=== PATIENT | male | born 1975 | race Caucasian/White ===

== ENCOUNTER 2016-11-18 18:31 | Emergency (ER) | payer BC, OTHER ==
[~2016-11-18] VITALS: Ht 165.1 cm; Wt 83.9 kg
[~2016-11-18 18:31] MED LIST: ALPR.25T; ASP325T; ASP81TEC PO; ASPI-999 PO; ATOR10TA66 PO; BPR100T; CEPH-507 PO; CLPD75T; CYAN10006 PO; ESCI20TA2; GABA100C; HYDR-1231 PO; HYDR-34 PO; HYDR-3816 PO; HYDR-756 PO; HYDR-757 PO; HYDR12.56 PO; HYDR1TAB PO; LISI10TA PO; MELA1TAB15 PO; METO-333 PO; METO50TA2 PO; MTP25TSR; NAPR-243 PO; NAPR500T PO; ORPH100T PO; PRAV40TA PO; PRM25T PO; PRX10T; SERT25TA PO; SERT50TA PO; SIMV40TA2; SULF-222 PO; WELLBUTRIN; [UNRECOGNIZED DRUG - REMARK] PO
[2016-11-18] MEDS ORDERED: cloNIDine 0.2 MG (CATAPRES) TAB PO ONE (19:00)
--- NOTE | 2016-11-18 19:02 | ED Upper Extremity ---
General Stated Complaint: LT PINKIE FINGER PAIN/SLAMMED IN DOOR Source: patient Exam Limitations: no limitations History of Present Illness Time seen by provider: 19:00 Initial Comments Patient shut the left pinky finger in his car door at 1 p.m. today. He now has swelling and a throbbing sensation to the fingertip as well as bruising. Onset: this afternoon Severity: moderate Pain/Injury Location: left 5th finger Allergies and Home Medications Allergies Coded Allergies: NKANo Known Allergies (Verified Allergy, Unknown, 09/22/05) No Known Drug Allergies (Unverified , 09/11/08) Home Medications Aspirin 81 Mg Tab.chew, 81 MG PO 1700, (Reported) Atorvastatin Calcium 10 Mg Tablet, 10 MG PO HS, #30 Prescribed by: JEAN VASQUEZ on 10/02/15 1639 Cyanocobalamin (Vitamin B-12) 1,000 Mcg Tablet, 1,000 MCG PO 1700, (Reported) Hydrochlorothiazide 12.5 Mg Tablet, 12.5 MG PO 1700, #30 LAST FILLED #30 06-20-15 Prescribed by: JEAN VASQUEZ on 10/02/15 1639 Hydrocodone/Acetaminophen 1 Each Tablet, 1 EACH PO Q6H PRN for PAIN, #10 Prescribed by: ROLF DOLAN on 02/06/16 1057 Melatonin/Pyridoxine 1 Each Tablet, 5 MG PO 0900, (Reported) Metoprolol Tartrate 50 Mg Tablet, 50 MG PO BID, #30 LAST FILLED #60 06-20-15 Prescribed by: JEAN VASQUEZ on 10/02/15 1639 Naproxen 500 Mg Tablet, 500 MG PO BID, #30 Prescribed by: ROLF DOLAN on 02/06/16 1057 Sertraline Hcl 50 Mg Tablet, 50 MG PO 1700, (Reported) LAST FILLED #30 06-20-15 Constitutional: see HPI EENTM: see HPI Respiratory: no symptoms reported Cardiovascular: no symptoms reported Genitourinary: no symptoms reported Musculoskeletal: see HPI Skin: no symptoms reported Psychiatric/Neurological: No Symptoms Reported Past Pxorduj-Jgwsuz-Ubcita Hx Patient Social History Recent Foreign Travel: No Contact w/Someone Who Travel: No Recent Hopitalizations: Yes (IRREGULAR HEART BEAT) Immunizations Up To Date Tetanus Booster (TDap): More than 5yrs PED Vaccines UTD: No Seasonal Allergies Seasonal Allergies: Yes Surgeries HX Surgeries: Yes Surgeries: Appendectomy, Coronary Stent Respiratory Hx Respiratory Disorders: No Cardiovascular Hx Cardiac Disorders: Yes (2 STENTS ) Cardiac Disorders: Heart Attack, Hypertension Neurological Hx Neurological Disorders: No Reproductive System Hx Reproductive Disorders: No Genitourinary Hx Genitourinary Disorders: Yes (HX OF KIDNEY STONES) Gastrointestinal Hx Gastrointestinal Disorders: No Musculoskeletal Hx Musculoskeletal Disorders: Yes Musculoskeletal Disorders: Chronic Back Pain Endocrine Hx Endocrine Disorders: No HEENT HX ENT Disorders: No Cancer Hx Cancer: No Psychosocial Hx Psychiatric Problems: Yes Behavioral Health Disorders: Anxiety, Depression Integumentary HX Skin/Integumentary Disorder: No Blood Transfusions Hx Blood Disorders: No Adverse Reaction to a Blood Tr: No Family Medical History Significant Family History: No Pertinent Family Hx Physical Exam Vital Signs Vital Sign - Last 12Hours 11/18/16 19:00 Temp 98.2 Pulse 86 Resp 20 B/P (MAP) 158/117 Pulse Ox 97 O2 Delivery Room Air Capillary Refill : General Appearance: WD/WN, no apparent distress HEENT: PERRL/EOMI, normal ENT inspection Neck: non-tender, full range of motion Respiratory: no respiratory distress, no accessory muscle use Gastrointestinal: non tender, soft Shoulder: normal inspection, non-tender Elbow/Forearm: normal inspection, non-tender, Left Wrist: Yes normal inspection, Yes non-tender Hand: Left, ecchymosis, limited ROM, nail injury (subungual hematoma), swelling Neurologic/Psychiatric: alert, normal mood/affect, oriented x 3 Skin: normal color, warm/dry Progress/Results/Core Measures Results/Orders My Orders Orders - ROLF DOLAN APRN Clonidine Tablet (Catapres Tablet) (11/18/16 19:00) Hand, Left, 3 Views (11/18/16 18:58) Medications Given in ED Current Medications Medications Dose Ordered Sig/Jessica Route Start Time Stop Time Status Last Admin Dose Admin Clonidine HCl 0.2 mg ONCE ONCE PO 11/18/16 19:00 11/18/16 19:01 DC 11/18/16 19:05 0.2 MG Vital Signs/I&O Vital Sign - Last 12Hours 11/18/16 19:00 Temp 98.2 Pulse 86 Resp 20 B/P (MAP) 158/117 Pulse Ox 97 O2 Delivery Room Air Departure Impression Impression: Primary Impression: Subungual hematoma of finger Additional Impressions: Hypertension Closed fracture of tuft of distal phalanx of finger Disposition: 01 HOME, SELF-CARE Condition: Stable Departure-Patient Inst. Decision time for Depature: 19:01 Referrals: DARSHAN ANTHONY DO (PCP/Family) Primary Care Physician Patient Instructions: NO INSTRUCTIONS GIVEN Add. Discharge Instructions: 1. Wear a Band-Aid over this for the next few days to collect the drainage/ oozing of blood that will occur from beneath the fingernail. You may shower 2. Scripts Hydrocodone/Acetaminophen ([place] 5-325 Tablet) 1 Each Tablet 1 EACH PO Q4H Y for PAIN-MODERATE TO SEVERE, #10 TAB Prov: ROLF DOLAN APRN 11/18/16 ROLF DOLAN APRN Nov 18, 2016 19:02
[2016-11-18] MEDS ORDERED: HYDR-757 PO (19:09)
[2016-11-18 19:22] VITALS: BP 145/97
--- NOTE | 2016-11-18 19:43 | Diagnostic Imaging Report ---
EXAMINATION: Left hand INDICATION: Injury Three views were obtained. There is a nondisplaced fracture involving the tuft of the distal phalanx of the fifth digit. There is also soft tissue edema in this area but there is no sign of a radiopaque foreign body. No other fracture or acute bony abnormality is noted. IMPRESSION: There is a nondisplaced fracture of the tuft of the distal phalanx of the fifth digit. There is no acute bony abnormality noted otherwise. Dictated by: Dictated on workstation # [id number]
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
--- OUTSIDE RECORDS SUMMARY | 2016-11-20 17:04 | XMS REPORT ---
Author Author FELIZ ANGELES Organization [employer] Address Unknown Phone Unavailable Care Team Providers Care Freight Claim Investigator Name Role Phone FELIZ ANGELES CP Unavailable Allergies, Adverse Reactions, Alerts Substance Reaction Event Type N.K.D.A. Info Not Available Non Drug Allergy Problems Problem Type Condition Code Onset Dates Condition Status Assessment Dental examination Z01.20 Active Medications Medication Code System Code Instructions Start Date End Date Status Dosage Metoprolol Succinate NDC 0 not defined [place] [facility] [address]-48 5-325 MG Orally every 6 hrs 1 tablet as needed Zoloft NDC 0 not defined Lovast[place] [facility] [address]-22 not defined Amoxicillin [facility] [address]-58 500 MG Orally every 8 hrs 1 tablet Procedures Procedure Coding System Code Date INTRAORL-PERIAPICAL 1 FILM 24331 CPT-4 D0220 December 04, 2015 LTD ORAL EVALUATION - PROBLEM FOCUS CPT-4 D0140 December 04, 2015 Vital Signs Date/Time: December 04, 2015 Blood Pressure Diastolic 11 mmHg Blood Pressure Systolic 151 mmHg Results No Known Results Summary Purpose [employer] Submission
== END 2016-11-18 19:22 | disposition home or self-care (01) ==
LOC: EDUNIT# 18:31 → ER 18:34
DX: S62.637A Displaced fracture of distal phalanx of left little finger, initial encounter for closed fracture (principal); I10 Essential (primary) hypertension; I25.2 Old myocardial infarction; F41.9 Anxiety disorder, unspecified; F32.9 Major depressive disorder, single episode, unspecified; Z79.82 Long term (current) use of aspirin; Z95.5 Presence of coronary angioplasty implant and graft; W23.1XXA Caught, crushed, jammed, or pinched between stationary objects, initial encounter
CPT/HCPCS: 29130; 73130

== ENCOUNTER 2018-02-18 08:30 | Inpatient (IN) | payer OTHER ==
[~2018-02-18] VITALS: Ht 165.1 cm; Wt 83.9 kg
[~2018-02-18 08:30] MED LIST changes: -HYDR-3816 PO; +HYDR-4226 PO; +HYDR-4227 PO; -HYDR-756 PO; -HYDR-757 PO; +METO50TA15 PO; -METO50TA2 PO; +NAPR-1071 PO; -NAPR500T PO
[2018-02-18 09:07] LABS: BASOPHILS % (AUTO) 0 % (0-10); EOSINOPHILS # (AUTO) 0.1 10^3/uL (0.0-0.3); EOSINOPHILS % (AUTO) 0 % (0-10); HEMATOCRIT 41 % (40-54); HEMOGLOBIN 14.7 G/DL (13.3-17.7); LYMPHOCYTES # (AUTO) 2.3 X 10^3 (1.0-4.0); LYMPHOCYTES % (AUTO) 13 % (12-44); MEAN CORPUSCULAR HEMOGLOBIN 31 PG (25-34); MEAN CORPUSCULAR HGB CONC 36 G/DL (32-36); MEAN CORPUSCULAR VOLUME 84 FL (80-99); MEAN PLATELET VOLUME 9.1 FL (7.4-10.4); MONOCYTES # (AUTO) 1.3 X 10^3 (0.0-1.0); MONOCYTES % (AUTO) 7 % (0-12); NEUTROPHILS # (AUTO) 14.5 X 10^3 (1.8-7.8); NEUTROPHILS % (AUTO) 80 % (42-75); PLATELET COUNT 249 10^3/uL (130-400); RED BLOOD COUNT 4.82 10^6/uL (4.35-5.85); RED CELL DISTRIBUTION WIDTH 12.6 % (10.0-14.5); WHITE BLOOD COUNT 18.2 10^3/uL (4.3-11.0)
[2018-02-18 09:22] LABS: ALANINE AMINOTRANSFERASE 47 U/L (0-55); ALBUMIN 4.7 GM/DL (3.2-4.5); ALKALINE PHOSPHATASE 57 U/L (40-136); BILIRUBIN,TOTAL 0.5 MG/DL (0.1-1.0); BUN/CREATININE RATIO 18; CALCIUM 9.8 MG/DL (8.5-10.1); CARBON DIOXIDE 23 MMOL/L (21-32); CHLORIDE 101 MMOL/L (98-107); CREATININE SERUM 0.88 MG/DL (0.60-1.30); GFR ESTIMATED > 60; GLUCOSE 104 MG/DL (70-105); POTASSIUM 3.3 MMOL/L (3.6-5.0); SODIUM 135 MMOL/L (135-145); TOTAL PROTEIN 7.6 GM/DL (6.4-8.2)
--- NOTE | 2018-02-18 09:28 | Diagnostic Imaging Report ---
CHEST 1 VIEW, AP/PA ONLY Indication: Chest and abdominal pain. Comparison: 10/01/2015 Findings: No focal airspace disease in the visualized lungs. Please note that the posterior lower lobes are poorly evaluated by portable radiography. No pleural effusion or pneumothorax. Normal cardiomediastinal silhouette. No free intraperitoneal air. Impression: 1. No acute cardiopulmonary process by portable radiography. 2. No evidence of pneumoperitoneum. Dictated by: Dictated on workstation # [id number]
[2018-02-18 09:44] LABS: BAND NEUTROPHILS 4 %; LYMPHOCYTES % (MANUAL) 12 %; MONOCYTES % (MANUAL) 5 %; NEUTROPHILS % (MANUAL) 77 %
[2018-02-18 09:45] LABS: BASOPHILS % (MANUAL) 1 %; EOSINOPHILS % (MANUAL) 1 %; RBC MORPH NORMAL
--- NOTE | 2018-02-18 09:53 | ED Abdominal Pain ---
General Chief Complaint: Abdominal/GI Problems Stated Complaint: ABD PAIN Nursing Triage Note: PT BEGAN EXPERINCING SHARP ADBOMINAL PAIN LAST NIGHT WITH NAUSEA AND VOMITING. Sepsis Screen: No Definite Risk Source of Information: Patient (KELLE GARCIAS MD) History of Present Illness Date Seen by Provider: Feb 18, 2018 Time Seen by Provider: 09:50 Initial Comments The patient is a 43-year-old white male who presents to the emergency room with a chief complaint of central abdominal pain. He reports that this began last evening. He had eaten chicken planks and setswana fries prior to that. He still has his gallbladder but has not had any previous pain of this sort. He also reported some left upper abdomen lower chest pain. He has a past history of coronary artery disease with stenting in 2007 or . Recent repeat angiograms have not shown any progression of disease. He has had a previous appendectomy. The pain is central without radiation. He has had a bowel movement since the onset of pain. He has vomited once. Timing/Duration: 12-24 Hours (KELLE GARCIAS MD) Allergies and Home Medications Allergies Coded Allergies: NKANo Known Allergies (Verified Allergy, Unknown, 09/22/05) No Known Drug Allergies (Unverified , 09/11/08) Home Medications No Active Prescriptions or Reported Meds Patient Home Medication List Home Medication List Reviewed: Yes (LATESHA SCHMITT) Review of Systems Review of Systems Constitutional: see HPI EENTM: No Symptoms Reported Respiratory: No Symptoms Reported Cardiovascular: No Symptoms Reported Gastrointestinal: See HPI Genitourinary: No Symptoms Reported Musculoskeletal: no symptoms reported Skin: no symptoms reported Psychiatric/Neurological: No Symptoms Reported Endocrine: No Symptoms Reported Hematologic/Lymphatic: No Symptoms Reported (KELLE GARCIAS MD) Past Eyrbnpr-Gmfetq-Itszad Hx Patient Social History Alcohol Use: Occasionally Uses Recreational Drug Use: Yes Drug of Choice: MARIJUANA Smoking Status: Current Everyday Smoker Type Used: Cigarettes 2nd Hand Smoke Exposure: Yes Recent Foreign Travel: No Contact w/Someone Who Travel: No Recent Infectious Disease Expo: No Recent Hopitalizations: No (KELLE GARCIAS MD) 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 (LATESHA SCHMITT) Immunizations Up To Date Tetanus Booster (TDap): More than 5yrs PED Vaccines UTD: No (KELLE GARCIAS MD) Seasonal Allergies Seasonal Allergies: Yes (KELLE GARCIAS MD) Past Medical History Surgeries: Yes Appendectomy, Coronary Stent Respiratory: No Cardiac: Yes (2 STENTS ) Heart Attack, High Cholesterol, Hypertension Neurological: No Reproductive Disorders: No Genitourinary: No Gastrointestinal: No Musculoskeletal: Yes Chronic Back Pain Endocrine: No HEENT: No Cancer: No Psychosocial: Yes Anxiety, Depression Integumentary: No Blood Disorders: No Adverse Reaction/Blood Tranf: No (KELLE GARCIAS MD) Family Medical History No Pertinent Family Hx (KELLE GARCIAS MD) Physical Exam Vital Signs Vital Signs - First Documented 02/18/18 08:37 Temp 97.6 Pulse 69 Resp 18 B/P (MAP) 200/124 (149) Pulse Ox 96 O2 Delivery Room Air (LATESHA SCHMITT) Vital Signs Capillary Refill : Less Than 3 Seconds (KELLE GARCIAS MD) Height/Weight/BMI Height: 5'5.00" Weight: 185lbs. 0.0oz. 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, no motor/sensory deficits, alert, normal mood/affect, oriented x 3 Skin: normal color, warm/dry Lymphatic: no adenopathy (KELLE GARCIAS MD) Progress/Results/Core Measures Results/Orders Lab Results Laboratory Tests Test 02/18/18 08:40 02/18/18 12:55 Range/Units White Blood Count 18.2 H 4.3-11.0 10^3/uL Red Blood Count 4.82 4.35-5.85 10^6/uL Hemoglobin 14.7 13.3-17.7 G/DL Hematocrit 41 40-54 % Mean Corpuscular Volume 84 80-99 FL Mean Corpuscular Hemoglobin 31 25-34 PG Mean Corpuscular Hemoglobin Concent 36 32-36 G/DL Red Cell Distribution Width 12.6 10.0-14.5 % Platelet Count 249 130-400 10^3/uL Mean Platelet Volume 9.1 7.4-10.4 FL Neutrophils (%) (Auto) 80 H 42-75 % Lymphocytes (%) (Auto) 13 12-44 % Monocytes (%) (Auto) 7 0-12 % Eosinophils (%) (Auto) 0 0-10 % Basophils (%) (Auto) 0 0-10 % Neutrophils # (Auto) 14.5 H 1.8-7.8 X 10^3 Lymphocytes # (Auto) 2.3 1.0-4.0 X 10^3 Monocytes # (Auto) 1.3 H 0.0-1.0 X 10^3 Eosinophils # (Auto) 0.1 0.0-0.3 10^3/uL Basophils # (Auto) 0.0 0.0-0.1 10^3/uL Neutrophils % (Manual) 77 % Lymphocytes % (Manual) 12 % Monocytes % (Manual) 5 % Eosinophils % (Manual) 1 % Basophils % (Manual) 1 % Band Neutrophils 4 % Blood Morphology Comment NORMAL Sodium Level 135 135-145 MMOL/L Potassium Level 3.3 L 3.6-5.0 MMOL/L Chloride Level 101 98-107 MMOL/L Carbon Dioxide Level 23 21-32 MMOL/L Anion Gap 11 5-14 MMOL/L Blood Urea Nitrogen 16 7-18 MG/DL Creatinine 0.88 0.60-1.30 MG/DL Estimat Glomerular Filtration Rate > 60 BUN/Creatinine Ratio 18 Glucose Level 104 70-105 MG/DL Calcium Level 9.8 8.5-10.1 MG/DL Corrected Calcium 8.5-10.1 MG/DL Total Bilirubin 0.5 0.1-1.0 MG/DL Aspartate Amino Transf (AST/SGOT) 19 5-34 U/L Alanine Aminotransferase (ALT/SGPT) 47 0-55 U/L Alkaline Phosphatase 57 40-136 U/L Troponin I < 0.30 <0.30 NG/ML Total Protein 7.6 6.4-8.2 GM/DL Albumin 4.7 H 3.2-4.5 GM/DL Triglycerides Level 162 H <150 MG/DL Lipase 159 H 8-78 U/L Serum Alcohol < 10 <10 MG/DL Urine Color YELLOW Urine Clarity SLIGHTLY CLOUDY Urine pH 6.5 5-9 Urine Specific Burke 1.010 L 1.016-1.022 Urine Protein NEGATIVE NEGATIVE Urine Glucose (UA) NEGATIVE NEGATIVE Urine Ketones NEGATIVE NEGATIVE Urine Nitrite NEGATIVE NEGATIVE Urine Bilirubin NEGATIVE NEGATIVE Urine Urobilinogen NORMAL NORMAL MG/DL Urine Leukocyte Esterase NEGATIVE NEGATIVE Urine RBC (Auto) NEGATIVE NEGATIVE Urine RBC RARE /HPF Urine WBC NONE /HPF Urine Squamous Epithelial Cells RARE /HPF Urine Crystals NONE /LPF Urine Bacteria NEGATIVE /HPF Urine Casts NONE /LPF Urine Mucus NEGATIVE /LPF Urine Culture Indicated NO Urine Opiates Screen POSITIVE H NEGATIVE Urine Oxycodone Screen NEGATIVE NEGATIVE Urine Methadone Screen NEGATIVE NEGATIVE Urine Propoxyphene Screen NEGATIVE NEGATIVE Urine Barbiturates Screen NEGATIVE NEGATIVE Ur Tricyclic Antidepressants Screen NEGATIVE NEGATIVE Urine Phencyclidine Screen NEGATIVE NEGATIVE Urine Amphetamines Screen NEGATIVE NEGATIVE Urine Methamphetamines Screen NEGATIVE NEGATIVE Urine Benzodiazepines Screen NEGATIVE NEGATIVE Urine Cocaine Screen NEGATIVE NEGATIVE Urine Cannabinoids Screen POSITIVE H NEGATIVE (LATESHA SCHMITT) My Orders Orders - LATESHA SCHMITT Triglycerides (02/18/18 12:48) Hemoglobin A1c (02/18/18 12:48) Drug Screen Stat (Urine) (02/18/18 12:48) Ua Culture If Indicated (02/18/18 12:48) Fentanyl Injection (Sublimaze Injection (02/18/18 13:00) Labetalol Injection (Normodyne Injection (02/18/18 13:00) Alcohol (02/18/18 13:10) (LATESHA SCHMITT) Medications Given in ED Current Medications Medications Dose Ordered Sig/Jessica Route Start Time Stop Time Status Last Admin Dose Admin Fentanyl Citrate 50 mcg ONCE ONCE IVP 02/18/18 13:00 02/18/18 13:01 DC 02/18/18 13:00 50 MCG Iohexol 100 ml ONCE ONCE IV 02/18/18 11:30 02/18/18 11:31 DC 02/18/18 11:21 100 ML Labetalol HCl 20 mg ONCE ONCE IV 02/18/18 13:00 02/18/18 13:01 DC 02/18/18 13:00 20 MG Sodium Chloride 250 ml ONCE ONCE IV 02/18/18 11:30 02/18/18 11:31 DC 02/18/18 11:21 80 ML (LATESHA SCHMITT) Vital Signs/I&O 02/18/18 08:37 Temp 97.6 Pulse 69 Resp 18 B/P (MAP) 200/124 (149) Pulse Ox 96 O2 Delivery Room Air (LATESHA SCHMITT) Blood Pressure Mean: 149 Progress Progress Note : Time: 12:33 Progress Note I have met with listen to him and examine the patient and agree with the history and physical exam documented by Dr. Garcias. Patient has elevated lipase and white count as well as some inflammatory markings without obvious abscess around the ascending colon. Diverticulitis is possible. He's had his appendix out and the pancreas is unremarkable radiographically. There is no evidence of gallbladder disease on ultrasound. The patient denies recent drinking says about 3 days ago a similar beer. Symptoms started right after eating chicken strips and mashed potatoes with gravy. No history of pancreatitis. No imaging evidence of gallstones or obstruction of the biliary tree. Distant history of smoking meth but denies any IV use. Patient had a bowel movement this morning and has not had any problems lately of diarrhea constipation. Did not receive any increased pain or relief from having a bowel movement. So was normal formed. This makes the inflammation seen and a reactive lymphadenitis around the ascending colon less likely related to the bowel. Could be reactive inflammation of the pancreas secondary to whatever process is going on with the ascending colon as the radiographic imaging puts the inflammation geographically apart from the pancreas (which is fairly benign in appearance). Either way he is having nausea abdominal pain and could probably merit some observation in the hospital. As well as fluids, IV nausea and pain meds. [place] triglycerides, urinalysis, urine drug screen, add some fentanyl and talk about inpatient stay. (LATESHA SCHMITT) Initial ECG Impression Date: Feb 18, 2018 Initial ECG Impression Time: 08:58 Initial ECG Rate: 63 Initial ECG Rhythm: Normal Sinus Initial ECG Intervals: Normal Initial ECG Impression: Normal Comment No ST elevation or depression. (LATESHA SCHMITT) Diagnostic Imaging Diagonstic Imaging: Xray Plain Films/CT/US/NM/MRI: chest Comments NAME: RAN COLLIER [facility] REC#: [id number] PHYSICIAN: KELLE GARCIAS MD CC: DAKOTA SAMSON MD; KELLE GARCIAS MD Page 1 of 1 RADIOLOGY REPORT VIA [place], [place] CC: DAKOTA SAMSON MD; KELLE GARCIAS MD Page 1 of 1 RADIOLOGY REPORT NAME: RAN CO[facility]IER [facility] REC#: [id number] PT STATUS: REG ER : 1975 PHYSICIAN: KELLE GARCIAS MD ADMIT DATE: 02/18/18/ER Signed Date of Exam: 02/18/18 CHEST 1 VIEW, AP/PA ONLY CHEST 1 VIEW, AP/PA ONLY Indication: Chest and abdominal pain. Comparison: 10/01/2015 Findings: No focal airspace disease in the visualized lungs. Please note that the posterior lower lobes are poorly evaluated by portable radiography. No pleural effusion or pneumothorax. Normal cardiomediastinal silhouette. No free intraperitoneal air. Impression: 1. No acute cardiopulmonary process by portable radiography. 2. No evidence of pneumoperitoneum. Dictated by: Dictated on workstation # [id number] Dict: 02/18/18923 Trans: 02/18/18924 Interpreted by: DAKOTA SAMSON MD Electronically signed by: DAKOTA SAMSON MD 02/18/18924 Reviewed: Reviewed by Fl Diagonstic Imaging: CT (with contrast) Plain Films/CT/US/NM/MRI: abdomen, pelvis Comments NAME: RAN CO[facility] REC#: [id number] PHYSICIAN: KELLE GARCIAS MD CC: MARCIO HANNA MD; KELLE GARCIAS MD Page 2 of 2 RADIOLOGY REPORT VIA [facility] [place], [place] CC: MARCIO HANNA MD; KELLE GARCIAS MD Page 1 of 2 RADIOLOGY REPORT NAME: RAN CO[facility] REC#: [id number] PT STATUS: REG ER : 1975 PHYSICIAN: KELLE GARCIAS MD ADMIT DATE: 02/18/18/ER Signed Date of Exam: 02/18/18 CT ABDOMEN/PELVIS W PROCEDURE: CT abdomen and pelvis with contrast. TECHNIQUE: Multiple contiguous axial images were obtained through the abdomen and pelvis after administration of intravenous contrast. INDICATION: Abdominal pain with nausea and emesis COMPARISON is made to the study of 01/28/2015 Low-density is seen throughout the liver indicating steatosis. No focal hepatic or splenic lesion is identified. Gallbladder, pancreas and adrenal glands are stable and unremarkable. There is no evidence of hydronephrosis. There are nonobstructing stones within the upper and lower poles of the left kidney measuring up to 0.5 cm in size. There is mild to moderate edema and/or inflammation surrounding the ascending colon. This does appear to be along the mesenteric border just distal to the ileocecal valve. No organized fluid collection is seen to indicate an abscess. There is no evidence of pathologically enlarged adenopathy. IMPRESSION: Inflammation in the right lower quadrant along the mesenteric border of the ascending colon. This may represent focal colitis such as diverticulitis. Other causes of mesenteritis is not excluded. No drainable abscess is appreciated. There is no evidence of pneumoperitoneum or other acute abnormality within the abdomen or pelvis. Dictated by: Dictated on workstation # [id number] Dict: 02/18/18 1148 Trans: 02/18/18 1206 Interpreted by: MARCIO HANNA MD Electronically signed by: MARCIO HANNA MD 02/18/18 1206 Reviewed: Reviewed by Fl Diagonstic Imaging: Ultrasound Plain Films/CT/US/NM/MRI: abdomen (RUQ GB) Comments NAME: RAN COLLIER [facility] REC#: [id number] PT STATUS: REG ER : 1975 PHYSICIAN: KELLE GARCIAS MD ADMIT DATE: 02/18/18/ER Draft Date of Exam:02/18/18 US GALLBLADDER [id number] PROCEDURE: US Gallbladder. TECHNIQUE: Multiple real-time grayscale images were obtained over the right upper quadrant in various projections. INDICATION: Right-sided abdominal pain. COMPARISON: CT abdomen and pelvis performed earlier same day. FINDINGS: The liver shows diffuse increased echogenicity, indicative of diffuse hepatic steatosis. No focal hepatic lesion. Main portal vein is patent with antegrade flow. The gallbladder is distended without gallstones, wall thickening, or pericholecystic fluid. The common bile duct is obscured by overlying bowel gas. The pancreas is obscured by overlying bowel gas. The right kidney is normal in size. No hydronephrosis, shadowing calculi, or suspicious mass lesion. No right upper quadrant ascites. IMPRESSION: 1. Normal gallbladder. 2. Diffuse hepatic steatosis. Dictated on workstation # [id number] Dict: 02/18/18 1249 Trans: 02/18/18 [id number] [id number] Interpreted by: DAKOTA SAMSON MD Electronically signed by: Negative gallbladder ultrasound. Reviewed: Reviewed by Me (LATESHA SCHMITT) Departure Communication (Admissions) Time/Spoke to Admitting Phy: 13:04 Discussed case lab imaging findings with Dr. Anthony and he agrees to accept the patient but would like morning lipids, CBC, CMP, lipase and amylase. Consult general surgery. Time/Spoke to Consulting Phy: 13:09 Message left with surgery staff for Dr. Lerma to call us back. Dr. Lerma personally met the patient in the ER and agrees to consult. (LATESHA SCHMITT) Impression Primary Impression: Acute pancreatitis Qualified Codes: K85.90 - Acute pancreatitis without necrosis or infection, unspecified Disposition: ADMITTED INPATIENT Condition: Stable Admissions Decision to Admit Reason: Admit from ER (General) Decision to Admit/Date: Feb 18, 2018 Time/Decision to Admit Time: 13:09 (LATESHA SCHMITT) Departure-Patient Inst. Referrals: DARSHAN ANTHONY DO (PCP/Family) Primary Care Physician Scripts No Active Prescriptions or Reported Meds Copy Copies To 1: DARSHAN ANTHONY RODNEY K MD Feb 18, 2018 09:53 LATESHA SCHMITT Feb 18, 2018 12:38
[2018-02-18] MEDS ORDERED: IOHEXOL 350 MG/ML 100 ML (OMNIPAQUE 350) VIAL IV ONE (11:30)
[2018-02-18] MEDS ORDERED: NS 250 ML (IVPB) BAG IV ONE (11:30)
--- NOTE | 2018-02-18 12:02 | Diagnostic Imaging Report ---
PROCEDURE: CT abdomen and pelvis with contrast. TECHNIQUE: Multiple contiguous axial images were obtained through the abdomen and pelvis after administration of intravenous contrast. INDICATION: Abdominal pain with nausea and emesis COMPARISON is made to the study of 01/28/2015 Low-density is seen throughout the liver indicating steatosis. No focal hepatic or splenic lesion is identified. Gallbladder, pancreas and adrenal glands are stable and unremarkable. There is no evidence of hydronephrosis. There are nonobstructing stones within the upper and lower poles of the left kidney measuring up to 0.5 cm in size. There is mild to moderate edema and/or inflammation surrounding the ascending colon. This does appear to be along the mesenteric border just distal to the ileocecal valve. No organized fluid collection is seen to indicate an abscess. There is no evidence of pathologically enlarged adenopathy. IMPRESSION: Inflammation in the right lower quadrant along the mesenteric border of the ascending colon. This may represent focal colitis such as diverticulitis. Other causes of mesenteritis is not excluded. No drainable abscess is appreciated. There is no evidence of pneumoperitoneum or other acute abnormality within the abdomen or pelvis. Dictated by: Dictated on workstation # [id number]
--- NOTE | 2018-02-18 12:55 | Diagnostic Imaging Report ---
PROCEDURE: US Gallbladder. TECHNIQUE: Multiple real-time grayscale images were obtained over the right upper quadrant in various projections. INDICATION: Right-sided abdominal pain. COMPARISON: CT abdomen and pelvis performed earlier same day. FINDINGS: The liver shows diffuse increased echogenicity, indicative of diffuse hepatic steatosis. No focal hepatic lesion. Main portal vein is patent with antegrade flow. The gallbladder is distended without gallstones, wall thickening, or pericholecystic fluid. The common bile duct is obscured by overlying bowel gas. The pancreas is obscured by overlying bowel gas. The right kidney is normal in size. No hydronephrosis, shadowing calculi, or suspicious mass lesion. No right upper quadrant ascites. IMPRESSION: 1. Normal gallbladder. 2. Diffuse hepatic steatosis. Dictated by: Dictated on workstation # [id number]
[2018-02-18] MEDS ORDERED: LABETALOL HCL 20 MG/4 ML VIAL IV ONE (13:00)
[2018-02-18] MEDS ORDERED: fentaNYL INJECTION 100 MCG/2 ML AMP IVP ONE (13:00)
[2018-02-18 13:36] LABS: BILIRUBIN,URINE NEGATIVE (NEGATIVE); CLARITY,URINE SLIGHTLY CLOUDY; COLOR,URINE YELLOW; GLUCOSE, URINE (UA) NEGATIVE (NEGATIVE); KETONES,URINE NEGATIVE (NEGATIVE); LEUKOCYTE ESTERASE ,URINE NEGATIVE (NEGATIVE); NITRITE,URINE NEGATIVE (NEGATIVE); PH,URINE 6.5 (5-9); PROTEIN,URINE NEGATIVE (NEGATIVE); UROBILINOGEN,URINE NORMAL (NORMAL)
[2018-02-18 13:48] LABS: AMPHETAMINE SCREEN, URINE NEGATIVE (NEGATIVE); BARBITURATE SCREEN URINE NEGATIVE (NEGATIVE); BENZODIAZEPINES SCREEN URINE NEGATIVE (NEGATIVE); CANNABINOID SCREEN, URINE POSITIVE (NEGATIVE); COCAINE SCREEN URINE NEGATIVE (NEGATIVE); METHADONE STAT NEGATIVE (NEGATIVE); METHAMPHETAMINE SCREEN URINE S NEGATIVE (NEGATIVE); OPIATE SCREEN URINE POSITIVE (NEGATIVE); OXYCODONE STAT NEGATIVE (NEGATIVE); PROPOXYPHENE STAT NEGATIVE (NEGATIVE); TRICYCLIC ANTIDEPRESSANTS SCRE NEGATIVE (NEGATIVE)
[2018-02-18 13:52] LABS: BACTERIA,URINE NEGATIVE /HPF; RBC,URINE RARE /HPF; SQUAMOUS EPITHELIAL CELL,UR RARE /HPF
[2018-02-18 14:42] VITALS: BP 132/92
[2018-02-18] MEDS ORDERED: ONDANSETRON 4 MG/2 ML (SDV) Z0FRAN IV PRN (14:45)
[2018-02-18] MEDS: KETOROLAC 15 MG/ML VIAL IV PRN (14:49)
[2018-02-18] MEDS: NS W/KCL 40 MEQ/L 1,000 ML IV SCH ×2 (14:50→19:30)
[2018-02-18] MEDS ORDERED: FLU QUADRIvalent (5+ YOA) 2018-2019 (AFLURIA) 0.5 ML IM ONE (15:45)
[2018-02-18 16:35] VITALS: BP 140/90
[2018-02-18] MEDS ORDERED: PIPERACILLIN/TAZO 4.5 GM/NS 100 ML IV NR ×2 (17:00)
--- NOTE | 2018-02-18 17:02 | Consultation ---
History of Present Illness History of Present Illness Patient Consulted On(saurabh/time) 02/18/18 17:02 Date Seen by Provider: Feb 18, 2018 Time Seen by Provider: 17:02 History of Present Illness Consult requested by Dr. Figueroa for abdominal pain. 43 year old male with abdominal pain that was across the top of the abdomen more on the right side. Sharp pains moves to side. Severe pain. + nausea and emesis. Pain began last night and continued to increase in intensity. Nothing really makes better and nothing seems to make worse. Never had episode like this before. Denies fever sweats chills shortness of breath or chest pain at this time. Allergies and Home Medications Allergies Coded Allergies: NKANo Known Allergies (Verified Allergy, Unknown, 09/22/05) No Known Drug Allergies (Unverified , 09/11/08) Home Medications No Active Prescriptions or Reported Meds Patient Home Medication List Home Medication List Reviewed: Yes Past Rcegrod-Mmhhmj-Zhlrao Hx Patient Social History Alcohol Use: Occasionally Uses Number of Drinks Today: AA Recreational Drug Use: Yes (occasional marijuanna) 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 Smoking Status: Current Everyday Smoker Type Used: Cigarettes 2nd Hand Smoke Exposure: Yes Recent Foreign Travel: No Contact w/Someone Who Travel: No Recent Infectious Disease Expo: No Recent Hopitalizations: No Physical Abuse Screen: No Sexual Abuse: No Immunizations Up To Date Tetanus Booster (TDap): More than 5yrs PED Vaccines UTD: No Seasonal Allergies Seasonal Allergies: Yes Surgeries History of Surgeries: Yes Surgeries: Appendectomy, Coronary Stent Respiratory History of Respiratory Disorde: No Cardiovascular History of Cardiac Disorders: Yes (2 STENTS ) Cardiac Disorders: Heart Attack, High Cholesterol, Hypertension Neurological History of Neurological Disord: No Reproductive System Hx Reproductive Disorders: No Genitourinary History of Genitourinary Disor: No Gastrointestinal History of Gastrointestinal Di: No Musculoskeletal History of Musculoskeletal Dis: Yes Musculoskeletal Disorders: Chronic Back Pain Endocrine History of Endocrine Disorders: No HEENT History of HEENT Disorders: No Cancer History of Cancer: No Psychosocial History of Psychiatric Problem: Yes Behavioral Health Disorders: Anxiety, Depression Integumentary History of Skin or Integumenta: No Blood Transfusions History of Blood Disorders: No Adverse Reaction to a Blood Tr: No Family Medical History Significant Family History: No Pertinent Family Hx Family Medial History: Cardiovascular disease Hypertension Psychosocial problem Review of Systems-General Constitutional: no symptoms reported EENTM: no symptoms reported Respiratory: no symptoms reported Cardiovascular: no symptoms reported Gastrointestinal: see HPI Genitourinary: no symptoms reported Musculoskeletal: no symptoms reported Skin: no symptoms reported Psychiatric/Neurological: No Symptoms Reported Physical Exam-General Problems Physical Exam Vital Signs Vital Signs - First Documented 02/18/18 08:37 Temp 97.6 Pulse 69 Resp 18 B/P (MAP) 200/124 (149) Pulse Ox 96 O2 Delivery Room Air Capillary Refill : Less Than 3 Seconds General Appearance: no apparent distress HEENT: PERRL/EOMI, normal ENT inspection Neck: non-tender, full range of motion, supple Respiratory: no respiratory distress, no accessory muscle use Cardiovascular: regular rate, rhythm Gastrointestinal: soft, tenderness (right upper quadrant) Rectal: deferred Back: normal inspection, no CVA tenderness Extremities: normal range of motion, non-tender 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, no motor/sensory deficits, alert, normal mood/affect, oriented x 3 Skin: normal color, warm/dry Lymphatic: no adenopathy Data Review Labs Laboratory Tests 02/18/18 08:40: White Blood Count 18.2H, Red Blood Count 4.82, Hemoglobin 14.7, Hematocrit 41, Mean Corpuscular Volume 84, Mean Corpuscular Hemoglobin 31, Mean Corpuscular Hemoglobin Concent 36, Red Cell Distribution Width 12.6, Platelet Count 249, Mean Platelet Volume 9.1, Neutrophils (%) (Auto) 80H, Lymphocytes (%) (Auto) 13 , Monocytes (%) (Auto) 7, Eosinophils (%) (Auto) 0, Basophils (%) (Auto) 0, Neutrophils # (Auto) 14.5H, Lymphocytes # (Auto) 2.3, Monocytes # (Auto) 1.3H, Eosinophils # (Auto) 0.1, Basophils # (Auto) 0.0, Neutrophils % (Manual) 77, Lymphocytes % (Manual) 12, Monocytes % (Manual) 5, Eosinophils % (Manual) 1, Basophils % (Manual) 1, Band Neutrophils 4, Blood Morphology Comment NORMAL, Sodium Level 135, Potassium Level 3.3L, Chloride Level 101, Carbon Dioxide Level 23, Anion Gap 11, Blood Urea Nitrogen 16, Creatinine 0.88, Estimat Glomerular Filtration Rate > 60, BUN/Creatinine Ratio 18, Glucose Level 104, Calcium Level 9.8, Corrected Calcium , Total Bilirubin 0.5, Aspartate Amino Transf (AST/SGOT) 19, Alanine Aminotransferase (ALT/SGPT) 47, Alkaline Phosphatase 57, Troponin I < 0.30, Total Protein 7.6, Albumin 4.7H, Triglycerides Level 162H, Lipase 159H, Serum Alcohol < 10 02/18/18 12:55: Urine Color YELLOW, Urine Clarity SLIGHTLY CLOUDY, Urine pH 6.5, Urine Specific [place] 1.010L, Urine Protein NEGATIVE, Urine Glucose (UA) NEGATIVE, Urine Ketones NEGATIVE, Urine Nitrite NEGATIVE, Urine Bilirubin NEGATIVE, Urine Urobilinogen NORMAL, Urine Leukocyte Esterase NEGATIVE, Urine RBC (Auto) NEGATIVE, Urine RBC RARE, Urine WBC NONE, Urine Squamous Epithelial Cells RARE, Urine Crystals NONE, Urine Bacteria NEGATIVE, Urine Casts NONE, Urine Mucus NEGATIVE, Urine Culture Indicated NO, Urine Opiates Screen POSITIVEH, Urine Oxycodone Screen NEGATIVE, Urine Methadone Screen NEGATIVE, Urine Propoxyphene Screen NEGATIVE, Urine Barbiturates Screen NEGATIVE, Ur Tricyclic Antidepressants Screen NEGATIVE, Urine Phencyclidine Screen NEGATIVE, Urine Amphetamines Screen NEGATIVE, Urine Methamphetamines Screen NEGATIVE, Urine Benzodiazepines Screen NEGATIVE, Urine Cocaine Screen NEGATIVE, Urine Cannabinoids Screen POSITIVEH Assessment/Plan Assessment/Plan Assessment/Plan ruq abdominal pain colitis affecting ascending colon elevated lipase Started zosyn Iv fluids follow lab keep on clear and then advance when abdominal pain resolved no surgical intervention at this time Clinical Quality Measures DVT/VTE Risk/Contraindication: Risk Factor Score Per Nursin RFS Level Per Nursing on Admit: 1=Low/No VTE PPX KELIN HARRIS DO Feb 18, 2018 17:02
--- NOTE | 2018-02-18 18:52 | History & Physicial ---
History of Present Illness History of Present Illness Reason for visit/HPI Patient complains, stomach hurting all night. Patient had pain across abdomen above the umbilicus on both sides. Patient this evening complaints of pain in the lower right quadrant. Patient came out to the emergency room. Blood pressure over 200. Pain across abdomen. Patient had 6 beers the other day. Patient states he drinks occasionally. Patient admits to marijuana occasionally. Patient has a history of high blood pressure was metipranolol 50 mg twice a day. Patient stopped this a year ago. CAT scan showed diverticulitis in the lower right quadrant where he has his pain. White blood cell count 18,000. Patient had stents put in around the heart when he was 33 years old. Family history denies asthma TB diabetes heart disease lung disease cancer. Patient admits to smoking an occasional marijuana Date of Admission Feb 18, 2018 at 13:27 Time Seen by a Provider: 18:48 I consulted on this patient on 02/18/18 18:47 Attending Physician Ramiro Figueroa DO Admitting Physician Ramiro Figueroa DO Consult Allergies and Home Medications Allergies Coded Allergies: NKANo Known Allergies (Verified Allergy, Unknown, 09/22/05) No Known Drug Allergies (Unverified , 09/11/08) Home Medications No Active Prescriptions or Reported Meds Patient Home Medication List Home Medication List Reviewed: Yes Past Ckkhxnz-Cgnxln-Iwoinr Hx Patient Social History Employed/Student: employed Alcohol Use: Occasionally Uses Number of Drinks Today: AA Alcohol Beverage of Choice: Beer, Cheap Liquor Recreational Drug Use: Yes 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 Smoking Status: Current Everyday Smoker Type Used: Cigarettes 2nd Hand Smoke Exposure: Yes Physical Abuse Screen: No Sexual Abuse: No Recent Foreign Travel: No Contact w/other who traveled: No Recent Hopitalizations: No Recent Infectious Disease Expo: No Immunizations Up To Date Tetanus Booster (TDap): More than 5yrs Pediatric: No Seasonal Allergies Seasonal Allergies: Yes Surgeries Yes Appendectomy, Coronary Stent Respiratory No Cardiovascular Yes (2 STENTS ) Heart Attack, High Cholesterol, Hypertension Neurological No Reproductive System Hx Reproductive Disorders: No Genitourinary No Gastrointestinal No Musculoskeletal Yes Chronic Back Pain Endocrine History of Endocrine Disorders: No HEENT History of HEENT Disorders: No Cancer No Psychosocial History of Psychiatric Problem: Yes Behavioral Health Disorders: Anxiety, Depression Integumentary History of Skin or Integumenta: No Blood Transfusions History of Blood Disorders: No Adverse Reaction to a Blood Tr: No Family Medical History Significant Family History: No Pertinent Family Hx Family Hx: Cardiovascular disease Hypertension Psychosocial problem Review of Systems Constitutional: no symptoms reported EENTM: no symptoms reported Respiratory: no symptoms reported Cardiovascular: no symptoms reported Gastrointestinal: RLQ, abdominal pain (RLQ) Genitourinary: no symptoms reported Physical Exam Vital Signs Vital Signs - First Documented 02/18/18 08:37 Temp 97.6 Pulse 69 Resp 18 B/P (MAP) 200/124 (149) Pulse Ox 96 O2 Delivery Room Air Capillary Refill : Less Than 3 Seconds Height, Weight, BMI Height: 5'5.00" Weight: 185lbs. 0.0oz. 83.625286te; 30.8 BMI Method:Stated General Appearance: No Apparent Distress, WD/WN Eyes: Bilateral Eye Normal Inspection HEENT: Normal ENT Inspection Neck: Full Range of Motion, Normal Inspection Respiratory: Chest Non Tender, Lungs Clear, No Accessory Muscle Use, No Respiratory Distress Cardiovascular: Regular Rate, Rhythm, No Murmur Gastrointestinal: Abnormal Bowel Sounds, Other (Pain in low right quadrant to palpation) Assessment/Plan Assessment and Plan Acute diverticulitis elevated lipase. Hypertension. Coronary artery disease Admission Diagnosis Admission Status: Observation Clinical Quality Measures DVT/VTE Risk/Contraindication: Risk Factor Score Per Nursin RFS Level Per Nursing on Admit: 1=Low/No VTE PPRAMIRO CAMACHO DO Feb 18, 2018 18:52
[2018-02-18] MEDS: fentaNYL INJECTION 100 MCG/2 ML AMP IV PRN (19:42)
[2018-02-18 20:32] VITALS: BP 155/87
[2018-02-18] MEDS: PIPERACILLIN SODIUM/TAZOBACTAM 4.5 GM in NS (IVPB) 100 ML IV SCH (23:33)
[2018-02-19] VITALS: BP 140/89
[2018-02-19] MEDS: KETOROLAC 15 MG/ML VIAL IV PRN ×3 (02:28→16:29)
[2018-02-19 04:34] VITALS: BP 136/88
[2018-02-19] MEDS: PIPERACILLIN SODIUM/TAZOBACTAM 4.5 GM in NS (IVPB) 100 ML IV SCH ×3 (06:14→23:28)
[2018-02-19 06:15] LABS: BASOPHILS % (AUTO) 0 % (0-10); EOSINOPHILS # (AUTO) 0.1 10^3/uL (0.0-0.3); EOSINOPHILS % (AUTO) 1 % (0-10); HEMATOCRIT 43 % (40-54); HEMOGLOBIN 14.8 G/DL (13.3-17.7); LYMPHOCYTES # (AUTO) 2.1 X 10^3 (1.0-4.0); LYMPHOCYTES % (AUTO) 14 % (12-44); MEAN CORPUSCULAR HEMOGLOBIN 30 PG (25-34); MEAN CORPUSCULAR HGB CONC 35 G/DL (32-36); MEAN CORPUSCULAR VOLUME 87 FL (80-99); MEAN PLATELET VOLUME 9.4 FL (7.4-10.4); MONOCYTES # (AUTO) 1.5 X 10^3 (0.0-1.0); MONOCYTES % (AUTO) 10 % (0-12); NEUTROPHILS # (AUTO) 11.5 X 10^3 (1.8-7.8); NEUTROPHILS % (AUTO) 76 % (42-75); PLATELET COUNT 222 10^3/uL (130-400); RED BLOOD COUNT 4.93 10^6/uL (4.35-5.85); RED CELL DISTRIBUTION WIDTH 13.1 % (10.0-14.5); WHITE BLOOD COUNT 15.2 10^3/uL (4.3-11.0)
[2018-02-19 06:33] LABS: ALANINE AMINOTRANSFERASE 30 U/L (0-55); ALBUMIN 4.2 GM/DL (3.2-4.5); ALKALINE PHOSPHATASE 58 U/L (40-136); BILIRUBIN,TOTAL 1.6 MG/DL (0.1-1.0); BUN/CREATININE RATIO 16; CALCIUM 9.2 MG/DL (8.5-10.1); CARBON DIOXIDE 23 MMOL/L (21-32); CHLORIDE 103 MMOL/L (98-107); CHOLESTEROL 175 MG/DL (< 200); CREATININE SERUM 1.03 MG/DL (0.60-1.30); GFR ESTIMATED > 60; GLUCOSE 104 MG/DL (70-105); HDL CHOLESTEROL 36 MG/DL (40-60); POTASSIUM 3.8 MMOL/L (3.6-5.0); SODIUM 136 MMOL/L (135-145); TRIGLYCERIDES 79 MG/DL (<150); VLDL CHOLESTEROL 16 MG/DL (5-40)
--- NOTE | 2018-02-19 07:51 | Progress Note (SOAP) ---
Subjective Time Seen by a Provider: 07:45 Subjective/Events-last exam Improving, rates pain as 5/10. RLQ abdominal pain, consistent with diverticulitis. Receiving IV zosyn. HTN, controlled today. Patient was on metoprolol, 50mg BID previously. Elevated lipase, today the lab tests have not been received. Abdomen table tender to touch. Objective Exam Vital Signs Date Time Temp Pulse Resp B/P (MAP) Pulse Ox O2 Delivery O2 Flow Rate FiO2 02/19/18 04:34 98.6 67 17 136/88 (104) 96 Room Air 02/19/18 00:00 100.0 71 18 140/89 (106) 98 Room Air 02/18/18 20:32 99.1 78 20 155/87 (109) 98 Room Air 02/18/18 16:35 98.0 71 20 140/90 (107) 97 Room Air 02/18/18 14:42 98.7 59 18 132/92 (105) 98 Room Air 02/18/18 13:43 89 16 213/127 98 02/18/18 08:37 97.6 69 18 200/124 (149) 96 Room Air I & O 02/19/18 07:00 Intake Total 2160 ml Output Total 950 ml Balance 1210 ml Capillary Refill : Less Than 3 Seconds General Appearance: No Apparent Distress, WD/WN HEENT: Normal ENT Inspection Respiratory: Chest Non Tender, Lungs Clear, Normal Breath Sounds, No Accessory Muscle Use, No Respiratory Distress Cardiovascular: Regular Rate, Rhythm, No Murmur Gastrointestinal: normal bowel sounds, soft, no organomegaly, tenderness (RLQ) Neurologic/Psychiatric: Alert, Oriented x3 Skin: Normal Color, Warm/Dry Results Lab Laboratory Tests 02/18/18 08:40 02/19/18 05:25 Laboratory Tests 02/18/18 08:40: White Blood Count 18.2H, Red Blood Count 4.82, Hemoglobin 14.7, Hematocrit 41, Mean Corpuscular Volume 84, Mean Corpuscular Hemoglobin 31, Mean Corpuscular Hemoglobin Concent 36, Red Cell Distribution Width 12.6, Platelet Count 249, Mean Platelet Volume 9.1, Neutrophils (%) (Auto) 80H, Lymphocytes (%) (Auto) 13 , Monocytes (%) (Auto) 7, Eosinophils (%) (Auto) 0, Basophils (%) (Auto) 0, Neutrophils # (Auto) 14.5H, Lymphocytes # (Auto) 2.3, Monocytes # (Auto) 1.3H, Eosinophils # (Auto) 0.1, Basophils # (Auto) 0.0, Neutrophils % (Manual) 77, Lymphocytes % (Manual) 12, Monocytes % (Manual) 5, Eosinophils % (Manual) 1, Basophils % (Manual) 1, Band Neutrophils 4, Blood Morphology Comment NORMAL, Sodium Level 135, Potassium Level 3.3L, Chloride Level 101, Carbon Dioxide Level 23, Anion Gap 11, Blood Urea Nitrogen 16, Creatinine 0.88, Estimat Glomerular Filtration Rate > 60, BUN/Creatinine Ratio 18, Glucose Level 104, Calcium Level 9.8, Corrected Calcium , Total Bilirubin 0.5, Aspartate Amino Transf (AST/SGOT) 19, Alanine Aminotransferase (ALT/SGPT) 47, Alkaline Phosphatase 57, Troponin I < 0.30, Total Protein 7.6, Albumin 4.7H, Triglycerides Level 162H, Lipase 159H, Serum Alcohol < 10 02/18/18 12:55: Urine Color YELLOW, Urine Clarity SLIGHTLY CLOUDY, Urine pH 6.5, Urine Specific [place] 1.010L, Urine Protein NEGATIVE, Urine Glucose (UA) NEGATIVE, Urine Ketones NEGATIVE, Urine Nitrite NEGATIVE, Urine Bilirubin NEGATIVE, Urine Urobilinogen NORMAL, Urine Leukocyte Esterase NEGATIVE, Urine RBC (Auto) NEGATIVE, Urine RBC RARE, Urine WBC NONE, Urine Squamous Epithelial Cells RARE, Urine Crystals NONE, Urine Bacteria NEGATIVE, Urine Casts NONE, Urine Mucus NEGATIVE, Urine Culture Indicated NO, Urine Opiates Screen POSITIVEH, Urine Oxycodone Screen NEGATIVE, Urine Methadone Screen NEGATIVE, Urine Propoxyphene Screen NEGATIVE, Urine Barbiturates Screen NEGATIVE, Ur Tricyclic Antidepressants Screen NEGATIVE, Urine Phencyclidine Screen NEGATIVE, Urine Amphetamines Screen NEGATIVE, Urine Methamphetamines Screen NEGATIVE, Urine Benzodiazepines Screen NEGATIVE, Urine Cocaine Screen NEGATIVE, Urine Cannabinoids Screen POSITIVEH 02/19/18 05:25: White Blood Count 15.2H, Red Blood Count 4.93, Hemoglobin 14.8, Hematocrit 43, Mean Corpuscular Volume 87, Mean Corpuscular Hemoglobin 30, Mean Corpuscular Hemoglobin Concent 35, Red Cell Distribution Width 13.1, Platelet Count 222, Mean Platelet Volume 9.4, Neutrophils (%) (Auto) 76H, Lymphocytes (%) (Auto) 14 , Monocytes (%) (Auto) 10, Eosinophils (%) (Auto) 1, Basophils (%) (Auto) 0, Neutrophils # (Auto) 11.5H, Lymphocytes # (Auto) 2.1, Monocytes # (Auto) 1.5H, Eosinophils # (Auto) 0.1, Basophils # (Auto) 0.0, Sodium Level 136, Potassium Level 3.8, Chloride Level 103, Carbon Dioxide Level 23, Anion Gap 10, Blood Urea Nitrogen 16, Creatinine 1.03, Estimat Glomerular Filtration Rate > 60, BUN/ Creatinine Ratio 16, Glucose Level 104, Calcium Level 9.2, Corrected Calcium 9.0 , Total Bilirubin 1.6H, Aspartate Amino Transf (AST/SGOT) 13, Alanine Aminotransferase (ALT/SGPT) 30, Alkaline Phosphatase 58, Total Protein 7.0, Albumin 4.2, Triglycerides Level 79, Cholesterol Level 175, LDL Cholesterol Direct 127, VLDL Cholesterol 16, HDL Cholesterol 36L Assessment/Plan Assessment/Plan Assess & Plan/Chief Complaint Diverticulitis, continue with Zosyn IV. Still having some RLQ pain. Elevated lipase yesterday, waiting for results today. HTN, normal today, continue current management. WBC count went from 18k to 15k, improving. Clinical Quality Measures Admission Status Admission Dx Acute diverticulitis elevated lipase. Hypertension. Coronary artery disease DVT/VTE Risk/Contraindication: Risk Factor Score Per Nursin RFS Level Per Nursing on Admit: 1=Low/No VTE PPX DARSHAN ANTHONY DO Feb 19, 2018 07:51
[2018-02-19 08:00] VITALS: BP 163/95
[2018-02-19] MEDS: fentaNYL INJECTION 100 MCG/2 ML AMP IV PRN ×2 (12:11→19:36)
[2018-02-19] MEDS: NS W/KCL 40 MEQ/L 1,000 ML IV SCH (12:11)
[2018-02-19 15:40] VITALS: BP 166/98
[2018-02-19] MEDS ORDERED: ACETAMINOPHEN 325 MG TABLET ONE (16:12)
--- NOTE | 2018-02-19 16:48 | Progress Note ---
Subjective Date Seen by a Provider: Feb 19, 2018 Time Seen by a Provider: 16:46 Subjective/Events-last exam Patient feeling a little better today. Pain slightly better. Patient tolerating clears. No nausea or emesis. Denies fever sweats chills shortness of breath or chest pain. Objective Exam Vital Signs Date Time Temp Pulse Resp B/P (MAP) Pulse Ox O2 Delivery O2 Flow Rate FiO2 02/19/18 15:40 97.3 75 20 166/98 (120) 98 Room Air 02/19/18 08:00 97.6 79 18 163/95 (117) 98 Room Air 02/19/18 08:00 Room Air 02/19/18 04:34 98.6 67 17 136/88 (104) 96 Room Air 02/19/18 00:00 100.0 71 18 140/89 (106) 98 Room Air 02/18/18 20:32 99.1 78 20 155/87 (109) 98 Room Air I & O 02/19/18 07:00 Intake Total 2160 ml Output Total 950 ml Balance 1210 ml Capillary Refill : Less Than 3 Seconds General Appearance: No Apparent Distress, WD/WN HEENT: Normal ENT Inspection Neck: Full Range of Motion, Normal Inspection Respiratory: Chest Non Tender, Lungs Clear, Normal Breath Sounds, No Accessory Muscle Use, No Respiratory Distress Cardiovascular: Regular Rate, Rhythm, No Murmur Gastrointestinal: soft, tenderness (right upper quadrant, seems slightly better than yesterday) Neurologic/Psychiatric: Alert, Oriented x3 Skin: Normal Color, Warm/Dry Lymphatic: No Adenopathy Results Lab Laboratory Tests 02/19/18 05:25: White Blood Count 15.2H, Red Blood Count 4.93, Hemoglobin 14.8, Hematocrit 43, Mean Corpuscular Volume 87, Mean Corpuscular Hemoglobin 30, Mean Corpuscular Hemoglobin Concent 35, Red Cell Distribution Width 13.1, Platelet Count 222, Mean Platelet Volume 9.4, Neutrophils (%) (Auto) 76H, Lymphocytes (%) (Auto) 14 , Monocytes (%) (Auto) 10, Eosinophils (%) (Auto) 1, Basophils (%) (Auto) 0, Neutrophils # (Auto) 11.5H, Lymphocytes # (Auto) 2.1, Monocytes # (Auto) 1.5H, Eosinophils # (Auto) 0.1, Basophils # (Auto) 0.0, Sodium Level 136, Potassium Level 3.8, Chloride Level 103, Carbon Dioxide Level 23, Anion Gap 10, Blood Urea Nitrogen 16, Creatinine 1.03, Estimat Glomerular Filtration Rate > 60, BUN/ Creatinine Ratio 16, Glucose Level 104, Calcium Level 9.2, Corrected Calcium 9.0 , Total Bilirubin 1.6H, Aspartate Amino Transf (AST/SGOT) 13, Alanine Aminotransferase (ALT/SGPT) 30, Alkaline Phosphatase 58, Total Protein 7.0, Albumin 4.2, Triglycerides Level 79, Cholesterol Level 175, LDL Cholesterol Direct 127, VLDL Cholesterol 16, HDL Cholesterol 36L 02/19/18 05:45: Lipase 25 Assessment/Plan Assessment/Plan Assessment/Plan ruq abdominal pain colitis affecting ascending colon elevated lipase On zosyn Iv fluids follow lab keep on clear and then advance when abdominal pain resolved no surgical intervention at this time will follow will need short term follow up (8 weeks) colonoscopy Clinical Quality Measures DVT/VTE Risk/Contraindication: Risk Factor Score Per Nursin RFS Level Per Nursing on Admit: 1=Low/No VTE PPX KELIN HARRIS DO Feb 19, 2018 16:48
[2018-02-19 19:31] VITALS: BP 156/87
[2018-02-20] VITALS: BP 173/96
[2018-02-20 04:00] VITALS: BP 151/97
[2018-02-20] MEDS: NS W/KCL 40 MEQ/L 1,000 ML IV SCH (04:28)
[2018-02-20] MEDS: PIPERACILLIN SODIUM/TAZOBACTAM 4.5 GM in NS (IVPB) 100 ML IV SCH (06:21)
[2018-02-20 06:55] LABS: BASOPHILS % (AUTO) 0 % (0-10); EOSINOPHILS # (AUTO) 0.1 10^3/uL (0.0-0.3); EOSINOPHILS % (AUTO) 1 % (0-10); HEMATOCRIT 39 % (40-54); HEMOGLOBIN 13.9 G/DL (13.3-17.7); LYMPHOCYTES # (AUTO) 1.8 X 10^3 (1.0-4.0); LYMPHOCYTES % (AUTO) 13 % (12-44); MEAN CORPUSCULAR HEMOGLOBIN 31 PG (25-34); MEAN CORPUSCULAR HGB CONC 35 G/DL (32-36); MEAN CORPUSCULAR VOLUME 87 FL (80-99); MEAN PLATELET VOLUME 9.6 FL (7.4-10.4); MONOCYTES # (AUTO) 1.6 X 10^3 (0.0-1.0); MONOCYTES % (AUTO) 11 % (0-12); NEUTROPHILS # (AUTO) 10.9 X 10^3 (1.8-7.8); NEUTROPHILS % (AUTO) 76 % (42-75); PLATELET COUNT 195 10^3/uL (130-400); RED CELL DISTRIBUTION WIDTH 12.6 % (10.0-14.5); WHITE BLOOD COUNT 14.4 10^3/uL (4.3-11.0)
[2018-02-20 07:12] LABS: BUN/CREATININE RATIO 15; CARBON DIOXIDE 22 MMOL/L (21-32); CHLORIDE 106 MMOL/L (98-107); CREATININE SERUM 0.92 MG/DL (0.60-1.30); GFR ESTIMATED > 60; GLUCOSE 97 MG/DL (70-105); SODIUM 136 MMOL/L (135-145)
[2018-02-20 07:14] LABS: AMYLASE 27 U/L (25-125); LIPASE 13 U/L (8-78)
--- NOTE | 2018-02-20 10:58 | Progress Note-Hospitalist ---
Subjective HPI/CC On Admission Date Seen by Provider: Feb 20, 2018 Time Seen by Provider: 09:45 Subjective/Events-last exam Patient reports right sided abdominal pain is moderating. He is tolerating clear liquids although he does not exacerbation discomfort after liquid consumption and does not feel he is ready to attempt solids yet. He denies any night sweats chills or fever and has had several loose stools without exacerbation of cramping over the last 24 hours. Nausea is resolving and denies vomiting. Objective Exam Vital Signs Vital Signs Date Time Temp Pulse Resp B/P (MAP) Pulse Ox O2 Delivery O2 Flow Rate FiO2 02/20/18 04:00 98.9 67 16 151/97 (115) 97 Room Air Capillary Refill : Less Than 3 Seconds General Appearance: No Apparent Distress, WD/WN Respiratory: Chest Non Tender, Lungs Clear, Normal Breath Sounds, No Accessory Muscle Use, No Respiratory Distress Cardiovascular: Regular Rate, Rhythm, No Edema, No Gallop, No JVD, No Murmur, Normal Peripheral Pulses Gastrointestinal: Normal Bowel Sounds, No Organomegaly, No Pulsatile Mass, Soft , Tenderness (Right mid and lower quadrants of the abdomen only with some guarding but no rebound) Results/Procedures Lab Laboratory Tests 02/20/18 06:32 Patient resulted labs reviewed. Assessment/Plan Assessment and Plan Assess & Plan/Chief Complaint 1. Colitis involving the ascending colon with secondary mesenteric adenitis continue antibiotics and clear liquids advance diet as tolerated. Patient clinically responding low-grade fever only and white count is decreasing. 2. Mild lipase elevation which returned to normal quickly most likely of bowel inflammation etiology and not pancreatitis. Clinical Quality Measures DVT/VTE Risk/Contraindication: Risk Factor Score Per Nursin RFS Level Per Nursing on Admit: 1=Low/No VTE PPX BRITNEY ROQUE MD Feb 20, 2018 10:57
--- NOTE | 2018-02-20 11:11 | Progress Note (SOAP) ---
Subjective Date Seen by a Provider: Feb 20, 2018 Time Seen by a Provider: 10:30 Subjective/Events-last exam Patient seen with Dr. Banerjee. Patient reports doing better. Minimal abdominal tenderness. Tolerating liquids. No fever/chills. No N/V. Ambulating and having BMs. Objective Exam Vital Signs Date Time Temp Pulse Resp B/P (MAP) Pulse Ox O2 Delivery O2 Flow Rate FiO2 02/20/18 04:00 98.9 67 16 151/97 (115) 97 Room Air 02/20/18 00:00 100.0 65 16 173/96 (121) 99 Room Air 02/19/18 19:31 99.3 68 16 156/87 (110) 96 Room Air 02/19/18 15:40 97.3 75 20 166/98 (120) 98 Room Air I & O 02/20/18 07:00 Intake Total 3662 ml Output Total 650 ml Balance 3012 ml Capillary Refill : Less Than 3 Seconds General Appearance: No Apparent Distress, WD/WN Neck: Full Range of Motion, Normal Inspection, Non Tender, Supple Respiratory: Normal Breath Sounds, No Accessory Muscle Use, No Respiratory Distress Cardiovascular: Regular Rate, Rhythm, No Edema Gastrointestinal: normal bowel sounds, soft, tenderness (Right lower abdominal quadrant) Extremity: Normal Capillary Refill, Normal Inspection, Normal Range of Motion Neurologic/Psychiatric: Alert, Oriented x3 Skin: Normal Color, Warm/Dry Results Lab Laboratory Tests 02/20/18 06:32: White Blood Count 14.4H, Red Blood Count 4.50, Hemoglobin 13.9, Hematocrit 39L, Mean Corpuscular Volume 87, Mean Corpuscular Hemoglobin 31, Mean Corpuscular Hemoglobin Concent 35, Red Cell Distribution Width 12.6, Platelet Count 195, Mean Platelet Volume 9.6, Neutrophils (%) (Auto) 76H, Lymphocytes (%) (Auto) 13 , Monocytes (%) (Auto) 11, Eosinophils (%) (Auto) 1, Basophils (%) (Auto) 0, Neutrophils # (Auto) 10.9H, Lymphocytes # (Auto) 1.8, Monocytes # (Auto) 1.6H, Eosinophils # (Auto) 0.1, Basophils # (Auto) 0.0, Sodium Level 136, Potassium Level 4.0, Chloride Level 106, Carbon Dioxide Level 22, Anion Gap 8, Blood Urea Nitrogen 14, Creatinine 0.92, Estimat Glomerular Filtration Rate > 60, BUN/ Creatinine Ratio 15, Glucose Level 97, Calcium Level 9.0, Amylase Level 27, Lipase 13 Assessment/Plan Assessment/Plan Assess & Plan/Chief Complaint A 43 year old male with RUQ abdominal pain, colitis affecting ascending colon, and pancreatitis Continue IV zosyn, pain meds, and IV fluids. AM labs Will advance to low fat diet Will need follow up colonoscopy in 8 weeks. If patient tolerates diet, patient may be DC'd home today with script for pain and abx which is on the chart. Follow up Dr. Lerma in 1-2 weeks after discharge. Clinical Quality Measures DVT/VTE Risk/Contraindication: Risk Factor Score Per Nursin RFS Level Per Nursing on Admit: 1=Low/No VTE PPX SCOTTY MCCALL APRN Feb 20, 2018 11:11 am
[2018-02-20] MEDS ORDERED: FLU QUADRIvalent (5+ YOA) 2018-2019 (AFLURIA) 0.5 ML IM ONE (11:44)
[2018-02-20] MEDS: KETOROLAC 15 MG/ML VIAL IV PRN (11:58)
[2018-02-20 12:43] VITALS: BP 144/90
[2018-02-20] MEDS ORDERED: TRAM-42 PO (13:01)
[2018-02-20] MEDS ORDERED: AMOX-358 PO (13:01)
--- NOTE | 2018-02-20 13:03 | Discharge Inst-Surgical ---
D/C Lap Instructions-KIDO New, Converted, or Re-Newed RX: RX on Chart Follow Up with Dr. Lerma 2 weeks. Activity as tolerated low residue diet 2 weeks. Avoid Alcohol, Caffeine, Spicy [place] and Acid foods. Drink 64 fluid oz or more of fluids per day. Symptoms to Report: Fever over 101 degree F, Nausea/Vomiting If any problems/questions: Contact your physician or go to Emergency Room BRANDON ROACH MD Feb 20, 2018 1:03 pm
[2018-02-20 13:24] VITALS: BP 144/90
--- NOTE | 2018-02-22 07:21 | Discharge Summary ---
Diagnosis/Chief Complaint Date of Admission Feb 18, 2018 at 13:27 Date of Discharge Feb 20, 2018 at 13:40 Discharge Date: Feb 20, 2018 Discharge Time: 07:19 Admission Diagnosis Admission Diagnosis Acute extending diverticulitis. Acute pancreatitis. Coronary artery disease. Marijuana usage. Essential hypertension. History of myocardial infarction previously area Hepatic steatosis Discharge Diagnosis Acute diverticulitis. Acute pancreatitis. Coronary artery disease. Marijuana usage. Essential hypertension. History of myocardial infarction. Hepatic steatosis Reason Hospital Visit Patient complains, stomach hurting all night. Patient had pain across abdomen above the umbilicus on both sides. Patient this evening complaints of pain in the lower right quadrant. Patient came out to the emergency room. Blood pressure over 200. Pain across abdomen. Patient had 6 beers the other day. Patient states he drinks occasionally. Patient admits to marijuana occasionally. Patient has a history of high blood pressure was metipranolol 50 mg twice a day. Patient stopped this a year ago. CAT scan showed diverticulitis in the lower right quadrant where he has his pain. White blood cell count 18,000. Patient had stents put in around the heart when he was 33 years old. Family history denies asthma TB diabetes heart disease lung disease cancer. Patient admits to smoking an occasional marijuana Discharge Summary Consultations Surgery Discharge Physical Examination Allergies: Coded Allergies: NKANo Known Allergies (Verified Allergy, Unknown, 09/22/05) No Known Drug Allergies (Unverified , 09/11/08) Vitals & I&Os Vital Signs Date Time Temp Pulse Resp B/P (MAP) Pulse Ox O2 Delivery O2 Flow Rate FiO2 02/20/18 13:24 77 16 144/90 97 Room Air 02/20/18 12:43 98.7 Hospital Course Labs (last 24 hrs) Laboratory Tests 02/18/18 08:40: White Blood Count 18.2H, Red Blood Count 4.82, Hemoglobin 14.7, Hematocrit 41, Mean Corpuscular Volume 84, Mean Corpuscular Hemoglobin 31, Mean Corpuscular Hemoglobin Concent 36, Red Cell Distribution Width 12.6, Platelet Count 249, Mean Platelet Volume 9.1, Neutrophils (%) (Auto) 80H, Lymphocytes (%) (Auto) 13 , Monocytes (%) (Auto) 7, Eosinophils (%) (Auto) 0, Basophils (%) (Auto) 0, Neutrophils # (Auto) 14.5H, Lymphocytes # (Auto) 2.3, Monocytes # (Auto) 1.3H, Eosinophils # (Auto) 0.1, Basophils # (Auto) 0.0, Neutrophils % (Manual) 77, Lymphocytes % (Manual) 12, Monocytes % (Manual) 5, Eosinophils % (Manual) 1, Basophils % (Manual) 1, Band Neutrophils 4, Blood Morphology Comment NORMAL, Sodium Level 135, Potassium Level 3.3L, Chloride Level 101, Carbon Dioxide Level 23, Anion Gap 11, Blood Urea Nitrogen 16, Creatinine 0.88, Estimat Glomerular Filtration Rate > 60, BUN/Creatinine Ratio 18, Glucose Level 104, Mean Blood Glucose 105, Hemoglobin A1c 5.3, Calcium Level 9.8, Corrected Calcium , Total Bilirubin 0.5, Aspartate Amino Transf (AST/SGOT) 19, Alanine Aminotransferase (ALT/SGPT) 47, Alkaline Phosphatase 57, Troponin I < 0.30, Total Protein 7.6, Albumin 4.7H, Triglycerides Level 162H, Lipase 159H, Serum Alcohol < 10 02/18/18 12:55: Urine Color YELLOW, Urine Clarity SLIGHTLY CLOUDY, Urine pH 6.5, Urine Specific [place] 1.010L, Urine Protein NEGATIVE, Urine Glucose (UA) NEGATIVE, Urine Ketones NEGATIVE, Urine Nitrite NEGATIVE, Urine Bilirubin NEGATIVE, Urine Urobilinogen NORMAL, Urine Leukocyte Esterase NEGATIVE, Urine RBC (Auto) NEGATIVE, Urine RBC RARE, Urine WBC NONE, Urine Squamous Epithelial Cells RARE, Urine Crystals NONE, Urine Bacteria NEGATIVE, Urine Casts NONE, Urine Mucus NEGATIVE, Urine Culture Indicated NO, Urine Opiates Screen POSITIVEH, Urine Oxycodone Screen NEGATIVE, Urine Methadone Screen NEGATIVE, Urine Propoxyphene Screen NEGATIVE, Urine Barbiturates Screen NEGATIVE, Ur Tricyclic Antidepressants Screen NEGATIVE, Urine Phencyclidine Screen NEGATIVE, Urine Amphetamines Screen NEGATIVE, Urine Methamphetamines Screen NEGATIVE, Urine Benzodiazepines Screen NEGATIVE, Urine Cocaine Screen NEGATIVE, Urine Cannabinoids Screen POSITIVEH 02/19/18 05:25: White Blood Count 15.2H, Red Blood Count 4.93, Hemoglobin 14.8, Hematocrit 43, Mean Corpuscular Volume 87, Mean Corpuscular Hemoglobin 30, Mean Corpuscular Hemoglobin Concent 35, Red Cell Distribution Width 13.1, Platelet Count 222, Mean Platelet Volume 9.4, Neutrophils (%) (Auto) 76H, Lymphocytes (%) (Auto) 14 , Monocytes (%) (Auto) 10, Eosinophils (%) (Auto) 1, Basophils (%) (Auto) 0, Neutrophils # (Auto) 11.5H, Lymphocytes # (Auto) 2.1, Monocytes # (Auto) 1.5H, Eosinophils # (Auto) 0.1, Basophils # (Auto) 0.0, Sodium Level 136, Potassium Level 3.8, Chloride Level 103, Carbon Dioxide Level 23, Anion Gap 10, Blood Urea Nitrogen 16, Creatinine 1.03, Estimat Glomerular Filtration Rate > 60, BUN/ Creatinine Ratio 16, Glucose Level 104, Calcium Level 9.2, Corrected Calcium 9.0 , Total Bilirubin 1.6H, Aspartate Amino Transf (AST/SGOT) 13, Alanine Aminotransferase (ALT/SGPT) 30, Alkaline Phosphatase 58, Total Protein 7.0, Albumin 4.2, Triglycerides Level 79, Cholesterol Level 175, LDL Cholesterol Direct 127, VLDL Cholesterol 16, HDL Cholesterol 36L 02/19/18 05:45: Lipase 25 02/20/18 06:32: White Blood Count 14.4H, Red Blood Count 4.50, Hemoglobin 13.9, Hematocrit 39L, Mean Corpuscular Volume 87, Mean Corpuscular Hemoglobin 31, Mean Corpuscular Hemoglobin Concent 35, Red Cell Distribution Width 12.6, Platelet Count 195, Mean Platelet Volume 9.6, Neutrophils (%) (Auto) 76H, Lymphocytes (%) (Auto) 13 , Monocytes (%) (Auto) 11, Eosinophils (%) (Auto) 1, Basophils (%) (Auto) 0, Neutrophils # (Auto) 10.9H, Lymphocytes # (Auto) 1.8, Monocytes # (Auto) 1.6H, Eosinophils # (Auto) 0.1, Basophils # (Auto) 0.0, Sodium Level 136, Potassium Level 4.0, Chloride Level 106, Carbon Dioxide Level 22, Anion Gap 8, Blood Urea Nitrogen 14, Creatinine 0.92, Estimat Glomerular Filtration Rate > 60, BUN/ Creatinine Ratio 15, Glucose Level 97, Calcium Level 9.0, Amylase Level 27, Lipase 13 Laboratory Tests 02/18/18 08:40 02/19/18 05:25 02/20/18 06:32 Pending Labs Laboratory Tests 02/18/18 08:40: White Blood Count 18.2, Red Blood Count 4.82, Hemoglobin 14.7, Hematocrit 41, Mean Corpuscular Volume 84, Mean Corpuscular Hemoglobin 31, Mean Corpuscular Hemoglobin Concent 36, Red Cell Distribution Width 12.6, Platelet Count 249, Mean Platelet Volume 9.1, Neutrophils (%) (Auto) 80, Lymphocytes (%) (Auto) 13, Monocytes (%) (Auto) 7, Eosinophils (%) (Auto) 0, Basophils (%) (Auto) 0, Neutrophils # (Auto) 14.5, Lymphocytes # (Auto) 2.3, Monocytes # (Auto) 1.3, Eosinophils # (Auto) 0.1, Basophils # (Auto) 0.0, Neutrophils % (Manual) 77, Lymphocytes % (Manual) 12, Monocytes % (Manual) 5, Eosinophils % (Manual) 1, Basophils % (Manual) 1, Band Neutrophils 4, Blood Morphology Comment NORMAL, Sodium Level 135, Potassium Level 3.3, Chloride Level 101, Carbon Dioxide Level 23, Anion Gap 11, Blood Urea Nitrogen 16, Creatinine 0.88, Estimat Glomerular Filtration Rate > 60, BUN/Creatinine Ratio 18, Glucose Level 104, Mean Blood Glucose 105, Hemoglobin A1c 5.3, Calcium Level 9.8, Corrected Calcium , Total Bilirubin 0.5, Aspartate Amino Transf (AST/SGOT) 19, Alanine Aminotransferase ( ALT/SGPT) 47, Alkaline Phosphatase 57, Troponin I < 0.30, Total Protein 7.6, Albumin 4.7, Triglycerides Level 162, Lipase 159, Serum Alcohol < 10 02/18/18 12:55: Urine Color YELLOW, Urine Clarity SLIGHTLY CLOUDY, Urine pH 6.5, Urine Specific [place] 1.010, Urine Protein NEGATIVE, Urine Glucose (UA) NEGATIVE, Urine Ketones NEGATIVE, Urine Nitrite NEGATIVE, Urine Bilirubin NEGATIVE, Urine Urobilinogen NORMAL, Urine Leukocyte Esterase NEGATIVE, Urine RBC (Auto) NEGATIVE, Urine RBC RARE, Urine WBC NONE, Urine Squamous Epithelial Cells RARE, Urine Crystals NONE, Urine Bacteria NEGATIVE, Urine Casts NONE, Urine Mucus NEGATIVE, Urine Culture Indicated NO, Urine Opiates Screen POSITIVE, Urine Oxycodone Screen NEGATIVE, Urine Methadone Screen NEGATIVE, Urine Propoxyphene Screen NEGATIVE, Urine Barbiturates Screen NEGATIVE, Ur Tricyclic Antidepressants Screen NEGATIVE, Urine Phencyclidine Screen NEGATIVE, Urine Amphetamines Screen NEGATIVE, Urine Methamphetamines Screen NEGATIVE, Urine Benzodiazepines Screen NEGATIVE, Urine Cocaine Screen NEGATIVE, Urine Cannabinoids Screen POSITIVE 02/19/18 05:25: White Blood Count 15.2, Red Blood Count 4.93, Hemoglobin 14.8, Hematocrit 43, Mean Corpuscular Volume 87, Mean Corpuscular Hemoglobin 30, Mean Corpuscular Hemoglobin Concent 35, Red Cell Distribution Width 13.1, Platelet Count 222, Mean Platelet Volume 9.4, Neutrophils (%) (Auto) 76, Lymphocytes (%) (Auto) 14, Monocytes (%) (Auto) 10, Eosinophils (%) (Auto) 1, Basophils (%) (Auto) 0, Neutrophils # (Auto) 11.5, Lymphocytes # (Auto) 2.1, Monocytes # (Auto) 1.5, Eosinophils # (Auto) 0.1, Basophils # (Auto) 0.0, Sodium Level 136, Potassium Level 3.8, Chloride Level 103, Carbon Dioxide Level 23, Anion Gap 10, Blood Urea Nitrogen 16, Creatinine 1.03, Estimat Glomerular Filtration Rate > 60, BUN/ Creatinine Ratio 16, Glucose Level 104, Calcium Level 9.2, Corrected Calcium 9.0 , Total Bilirubin 1.6, Aspartate Amino Transf (AST/SGOT) 13, Alanine Aminotransferase (ALT/SGPT) 30, Alkaline Phosphatase 58, Total Protein 7.0, Albumin 4.2, Triglycerides Level 79, Cholesterol Level 175, LDL Cholesterol Direct 127, VLDL Cholesterol 16, HDL Cholesterol 36 02/19/18 05:45: Lipase 02/20/18 06:32: White Blood Count 14.4, Red Blood Count 4.50, Hemoglobin 13.9, Hematocrit 39, Mean Corpuscular Volume 87, Mean Corpuscular Hemoglobin 31, Mean Corpuscular Hemoglobin Concent 35, Red Cell Distribution Width 12.6, Platelet Count 195, Mean Platelet Volume 9.6, Neutrophils (%) (Auto) 76, Lymphocytes (%) (Auto) 13, Monocytes (%) (Auto) 11, Eosinophils (%) (Auto) 1, Basophils (%) (Auto) 0, Neutrophils # (Auto) 10.9, Lymphocytes # (Auto) 1.8, Monocytes # (Auto) 1.6, Eosinophils # (Auto) 0.1, Basophils # (Auto) 0.0, Sodium Level 136, Potassium Level 4.0, Chloride Level 106, Carbon Dioxide Level 22, Anion Gap 8, Blood Urea Nitrogen 14, Creatinine 0.92, Estimat Glomerular Filtration Rate > 60, BUN/ Creatinine Ratio 15, Glucose Level 97, Calcium Level 9.0, Amylase Level 27, Lipase 13 Discharge Home Medications: Active Scripts Active Ultram (Tramadol HCl) 50 Mg Tablet 50 Mg PO Q4H Augmentin 875-125 Tablet (Amoxicillin/Potassium Clav) 1 Each Tablet 1 Each PO BID Instructions to patient/family Please see electronic discharge instructions given to patient. Clinical Quality Measures DVT/VTE Risk/Contraindication: Risk Factor Score Per Nursin RFS Level Per Nursing on Admit: 1=Low/No VTE PPX DARSHAN ANTHONY DO Feb 22, 2018 07:21
--- NOTE | 2018-02-23 09:28 | Physician Query Clarification ---
PQ-Conflicting Diagnosis Admission/Discharge Admission Date: Feb 18, 2018 at 13:27 Discharge Date: Feb 20, 2018 at 13:40 The medical record reflects the following clinical scenario: History/Risk Factors: CAD, STENT Clinical Findings: Central abdominal pain, RLQ pain, N/V Treatment: IV Zosyn, IV fluids Question: Do you agree with the impression of the Mild lipase elevation which returned to normal quickly most likely of bowel inflammation etiology and not pancreatitis. Meaning pancreatitis ruled out? per Dr. Maradiaga. Please document a response below. PHYSICIAN RESPONSE Do you agree w/Consulting Dx?: Yes In responding to this query, please exercise your independent professional judgment. The purpose of this communication is to more accurately reflect the complexity of your patients condition. The fact that a question is asked does not imply that any particular answer is desired or expected. Thank you for your timely response to this clarification. Requestors name: [facility] THIS PHYSICIAN QUERY FORM IS A PERMANENT PART OF THE MEDICAL RECORD [facility] Feb 23, 2018 09:28 DARSHAN ANTHONY DO Feb 23, 2018 21:24
== END 2018-02-20 13:40 | disposition home or self-care (01) | DRG 392 ==
LOC: EDUNIT# 08:30 → ER 08:35 → 4TH 13:27
PROVIDERS: ADMIT Family Medicine; ATTEND Family Medicine
DX: K57.32 Diverticulitis of large intestine without perforation or abscess without bleeding (principal); I10 Essential (primary) hypertension; K76.0 Fatty (change of) liver, not elsewhere classified; I88.0 Nonspecific mesenteric lymphadenitis; I25.10 Atherosclerotic heart disease of native coronary artery without angina pectoris; I25.2 Old myocardial infarction; F17.210 Nicotine dependence, cigarettes, uncomplicated; F12.90 Cannabis use, unspecified, uncomplicated; E78.00 Pure hypercholesterolemia, unspecified; M54.9 Dorsalgia, unspecified; F41.9 Anxiety disorder, unspecified; F32.9 Major depressive disorder, single episode, unspecified; J30.2 Other seasonal allergic rhinitis; Z95.5 Presence of coronary angioplasty implant and graft; Z23 Encounter for immunization
CPT/HCPCS: 36415; 71045; 74177; 76705; 80048; 80053; 80061; 80306; 80320; 81000; 82150; 83036; 83690; 84478; 84484; 85007; 85025; 85027; 90686; 93005; 96374; 96375

== ENCOUNTER 2018-05-11 14:34 | Inpatient (IN) | payer OTHER ==
[2018-05-11] VITALS (11 sets, daily range): BP systolic 103–144; BP diastolic 68–106
[~2018-05-11] VITALS: Ht 167.6 cm; Wt 83.5 kg
[~2018-05-11 14:34] MED LIST changes: +AMOX-358 PO; +TRAM-42 PO
[2018-05-11] MEDS ORDERED: ASPIRIN 81 MG CHEW (CHILDREN'S ASA) ONE (14:42)
[2018-05-11] MEDS ORDERED: NITROGLYCERIN 0.4 MG SL TABS BTL 25'S SL ONE (14:42)
[2018-05-11] MEDS ORDERED: NITROGLYCERIN 0.4 MG SL TABS BTL 25'S SL PRN (14:45)
[2018-05-11] MEDS ORDERED: ASPIRIN 81 MG CHEW (CHILDREN'S ASA) PO ONE (14:45)
[2018-05-11 14:52] LABS: BASOPHILS % (AUTO) 0 % (0-10); EOSINOPHILS # (AUTO) 0.2 10^3/uL (0.0-0.3); EOSINOPHILS % (AUTO) 2 % (0-10); HEMATOCRIT 47 % (40-54); LYMPHOCYTES # (AUTO) 3.1 X 10^3 (1.0-4.0); LYMPHOCYTES % (AUTO) 30 % (12-44); MEAN CORPUSCULAR HEMOGLOBIN 30 PG (25-34); MEAN CORPUSCULAR HGB CONC 34 G/DL (32-36); MEAN CORPUSCULAR VOLUME 87 FL (80-99); MEAN PLATELET VOLUME 9.6 FL (7.4-10.4); MONOCYTES % (AUTO) 10 % (0-12); NEUTROPHILS # (AUTO) 5.8 X 10^3 (1.8-7.8); NEUTROPHILS % (AUTO) 58 % (42-75); PLATELET COUNT 310 10^3/uL (130-400); RED BLOOD COUNT 5.43 10^6/uL (4.35-5.85); RED CELL DISTRIBUTION WIDTH 13.8 % (10.0-14.5); WHITE BLOOD COUNT 10.2 10^3/uL (4.3-11.0)
[2018-05-11 14:58] LABS: PROTHROMBIN TIME PATIENT 13.5 SEC (12.2-14.7)
[2018-05-11 15:04] LABS: ALANINE AMINOTRANSFERASE 43 U/L (0-55); ALBUMIN 5.3 GM/DL (3.2-4.5); ALKALINE PHOSPHATASE 76 U/L (40-136); BILIRUBIN,TOTAL 0.6 MG/DL (0.1-1.0); BUN/CREATININE RATIO 21; CALCIUM 10.8 MG/DL (8.5-10.1); CARBON DIOXIDE 28 MMOL/L (21-32); CHLORIDE 99 MMOL/L (98-107); CREATININE SERUM 1.23 MG/DL (0.60-1.30); GFR ESTIMATED > 60; GLUCOSE 83 MG/DL (70-105); MAGNESIUM 2.5 MG/DL (1.8-2.4); POTASSIUM 3.8 MMOL/L (3.6-5.0); SODIUM 140 MMOL/L (135-145)
[2018-05-11 15:11] LABS: MYOGLOBIN SERUM 95.3 NG/ML (10.0-92.0)
--- NOTE | 2018-05-11 15:20 | ED Chest Pain ---
General Chief Complaint: Chest Pain Stated Complaint: CHEST PAIN Nursing Triage Note: Pt arrived with chief complaint Chest pain. Pt ambulated to room 5 at arrival. Pt stated that the chest pain started at 1130 today and has been on/off since the weekend before . The patient stated that he went to [facility] prior to arrival and they gave him a nitro, then sent him here, because they are not capable of running the tests that the ER is capable of doing. The patient stated that he currently does not have chest pain, but when he was given the nitro at [facility] it helped. The patient stated that earlier he had chest pain localized in the middle of the chest, left arm pain and jaw pain. Pt stated he took 3 low dose aspirins earlier and blood pressure medication. Pt stated that previously when his chest pain started was when he was lifting objects, but this time he was sitting in a chair. Nursing Sepsis Screen: No Definite Risk Source: patient Exam Limitations: no limitations History of Present Illness Date Seen by Provider: May 11, 2018 Time Seen by Provider: 14:34 Initial Comments Patient is a 43-year-old male who was sent to the emergency room by [facility] by private vehicle for reports of chest pain that started 11:30 today. The patient reports that he has had intermittent chest pain with physical exertion for the past month. He states that his chest pain started at rest today around 11:30 while he was rocking his child in the chair and he went to [facility] to be evaluated and they gave him nitroglycerin and sent him to the emergency room. He reports substernal chest pain that radiates to his left chest wall and into his neck and jaw. Denies any shortness of breath, nausea, vomiting. He took 3 81 mg aspirin at home prior to presenting at [facility]. 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 (243mg) NTG SL PERSONAL LINES ACCOUNT EXECUTIVE: Yes (1) Associated Symptoms: denies symptoms; No shortness of breath Allergies and Home Medications Allergies Coded Allergies: NKANo Known Allergies (Verified Allergy, Unknown, 09/22/05) No Known Drug Allergies (Unverified , 09/11/08) Home Medications Amoxicillin/Potassium Clav 1 Each Tablet, 1 EACH PO BID Prescribed by: BRANDON ROACH on 02/20/18 1301 Tramadol HCl 50 Mg Tablet, 50 MG PO Q4H Prescribed by: BRANDON ROACH on 02/20/18 1301 Patient Home Medication List Home Medication List Reviewed: Yes Review of Systems Review of Systems Constitutional: no symptoms reported, see HPI Cardiovascular: See HPI, Chest Pain All Other Systems Reviewed Negative Unless Noted: Yes Past Wvcarzo-[id number]-Jqcnwj Hx Past Med/Social Hx: Reviewed Nursing Past Med/Soc Hx Patient Social History Alcohol Use: Denies Use Number of Drinks Today: CC Alcohol Beverage of Choice: Beer, Cheap Liquor Recreational Drug Use: No 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 Smoking Status: Current Everyday Smoker Type Used: Cigarettes 2nd Hand Smoke Exposure: Yes Recent Foreign Travel: No Contact w/Someone Who Travel: No Recent Infectious Disease Expo: No Recent Hopitalizations: No Physical Abuse: No Sexual Abuse: No Mistreated: No Fear: No Immunizations Up To Date Tetanus Booster (TDap): More than 5yrs PED Vaccines UTD: No Seasonal Allergies Seasonal Allergies: Yes Past Medical History Surgeries: Yes Appendectomy, Coronary Stent Respiratory: No Cardiac: Yes (2 STENTS ) Heart Attack, High Cholesterol, Hypertension Neurological: No Reproductive Disorders: No Genitourinary: No Gastrointestinal: No Musculoskeletal: Yes Chronic Back Pain Endocrine: No HEENT: No Cancer: No Psychosocial: Yes Anxiety, Depression Integumentary: No Blood Disorders: No Adverse Reaction/Blood Tranf: No Family Medical History Reviewed Nursing Family Hx Cardiovascular disease Hypertension Psychosocial problem No Pertinent Family Hx Physical Exam Vital Signs Vital Signs - First Documented 05/11/18 14:34 Temp 97.5 Pulse 65 Resp 15 B/P (MAP) 150/98 (115) Pulse Ox 100 O2 Delivery Room Air Capillary Refill : Less Than 3 Seconds Height, Weight, BMI Height: 5'6.00" Weight: 185lbs. 0.0oz. 83.054935kk; 30.8 BMI Method:Stated General Appearance: No Apparent Distress, WD/WN HEENT: PERRL/EOMI, TMs Normal, Normal ENT Inspection, Pharynx Normal Neck: Full Range of Motion, Normal Inspection, Non Tender Respiratory: Chest Non Tender, Lungs Clear, Normal Breath Sounds, No Accessory Muscle Use, No Respiratory Distress Cardiovascular: Regular Rate, Rhythm, No Edema, No Gallop, No JVD, No Murmur, Normal Peripheral Pulses Gastrointestinal: Normal Bowel Sounds, No Organomegaly, No Pulsatile Mass, Non Tender Neurologic/Psychiatric: Alert, Oriented x3, Normal Mood/Affect Skin: Normal Color, Warm/Dry Progress/Results/Core Measures Results/Orders Lab Results Laboratory Tests Test 05/11/18 14:40 Range/Units White Blood Count 10.2 4.3-11.0 10^3/uL Red Blood Count 5.43 4.35-5.85 10^6/uL Hemoglobin 16.0 13.3-17.7 G/DL Hematocrit 47 40-54 % Mean Corpuscular Volume 87 80-99 FL Mean Corpuscular Hemoglobin 30 25-34 PG Mean Corpuscular Hemoglobin Concent 34 32-36 G/DL Red Cell Distribution Width 13.8 10.0-14.5 % Platelet Count 310 130-400 10^3/uL Mean Platelet Volume 9.6 7.4-10.4 FL Neutrophils (%) (Auto) 58 42-75 % Lymphocytes (%) (Auto) 30 12-44 % Monocytes (%) (Auto) 10 0-12 % Eosinophils (%) (Auto) 2 0-10 % Basophils (%) (Auto) 0 0-10 % Neutrophils # (Auto) 5.8 1.8-7.8 X 10^3 Lymphocytes # (Auto) 3.1 1.0-4.0 X 10^3 Monocytes # (Auto) 1.0 0.0-1.0 X 10^3 Eosinophils # (Auto) 0.2 0.0-0.3 10^3/uL Basophils # (Auto) 0.0 0.0-0.1 10^3/uL Prothrombin Time 13.5 12.2-14.7 SEC INR Comment 1.0 0.8-1.4 Activated Partial Thromboplast Time 28 24-35 SEC Sodium Level 140 135-145 MMOL/L Potassium Level 3.8 3.6-5.0 MMOL/L Chloride Level 99 98-107 MMOL/L Carbon Dioxide Level 28 21-32 MMOL/L Anion Gap 13 5-14 MMOL/L Blood Urea Nitrogen 26 H 7-18 MG/DL Creatinine 1.23 0.60-1.30 MG/DL Estimat Glomerular Filtration Rate > 60 BUN/Creatinine Ratio 21 Glucose Level 83 70-105 MG/DL Calcium Level 10.8 H 8.5-10.1 MG/DL Corrected Calcium 8.5-10.1 MG/DL Magnesium Level 2.5 H 1.8-2.4 MG/DL Total Bilirubin 0.6 0.1-1.0 MG/DL Aspartate Amino Transf (AST/SGOT) 27 5-34 U/L Alanine Aminotransferase (ALT/SGPT) 43 0-55 U/L Alkaline Phosphatase 76 40-136 U/L Myoglobin 95.3 H 10.0-92.0 NG/ML Troponin I 0.30 <0.30 NG/ML Total Protein 9.0 H 6.4-8.2 GM/DL Albumin 5.3 H 3.2-4.5 GM/DL My Orders Orders - JHOANA ZAIDI Cbc With Automated Diff (05/11/18 14:44) Magnesium (05/11/18 14:44) Chest 1 View, Ap/Pa Only (05/11/18 14:44) Ekg Tracing (05/11/18 14:44) Cardiac Profile 1 (05/11/18 14:44) Comprehensive Metabolic Panel (05/11/18 14:44) Myoglobin Serum (05/11/18 14:44) Protime With Inr (05/11/18 14:44) Partial Thromboplastin Time (05/11/18 14:44) O2 (05/11/18 14:44) Monitor-Rhythm Ecg Trace Only (05/11/18 14:44) Lipid Panel (05/12/18 06:00) Aspirin Chewable Tablet (Baby Aspirin Ch (05/11/18 14:45) Nitroglycerin 0.4 Mg Btl 25's (Nitrostat (05/11/18 14:45) Saline Lock/Iv-Start (05/11/18 14:44) Aspirin Chewable Tablet (Baby Aspirin Ch (05/11/18 14:42) Nitroglycerin 0.4 Mg Btl 25's (Nitrostat (05/11/18 14:42) Clopidogrel Tablet (Plavix Tablet) (05/11/18 15:30) Metoprolol Succinate (Xl) Tab (Toprol Xl (05/11/18 15:30) Medications Given in ED Current Medications Medications Dose Ordered Sig/Jessica Route Start Time Stop Time Status Last Admin Dose Admin Aspirin 81 mg ONCE ONCE PO 05/11/18 14:45 05/11/18 14:46 DC 05/11/18 14:48 81 MG Clopidogrel Bisulfate 300 mg ONCE ONCE PO 05/11/18 15:30 05/11/18 15:31 DC 05/11/18 15:32 300 MG Nitroglycerin 0.4 mg UD PRN SL 05/11/18 14:45 05/11/18 14:48 0.4 MG Vital Signs/I&O 05/11/18 05/11/18 14:34 14:34 Temp 97.5 Pulse 65 Resp 15 B/P (MAP) 150/98 (115) Pulse Ox 100 O2 Delivery Room Air Room Air Blood Pressure Mean: 115 Progress Progress Note : Time: 14:45 Progress Note Patient is pain-free after second nitroglycerin. Awaiting laboratory studies at this time. 1517: Laboratory reports critical troponin at 0.30. Zacarias was called at this time and he wishes to take the patient to [facility] and recommends giving Plavix 300 mg by mouth 1 and Toprol XL 50 mg 1. The patient was informed of his laboratory findings and plans for going to [facility] this time. He is still pain free this time. Initial ECG Impression Date: May 11, 2018 Initial ECG Impression Time: 14:40 Initial ECG Rate: 68 Initial ECG Rhythm: Normal Sinus Initial ECG Intervals: Normal Initial ECG Impression: Normal Initial ECG Comparisson: No Previous ECG Available Comment Borderline T abnormalities. Reviewed by Dr. Herron agrees with above. EKG : EKG Time: 15:20 Rate: 59 Rhythm: Normal Sinus Intervals: Normal ECG Comparisson: Unchanged ECG Impression: Normal Comment Nonspecific T abnormalities inferior leads. Diagnostic Imaging Diagonstic Imaging: Xray Plain Films/CT/US/NM/MRI: chest Comments NAME: RAN COLLIER [facility] REC#: [id number] PT STATUS: REG [facility] [place] 1975 PHYSICIAN: JHOANA ZAIDI ADMIT DATE: 05/11/18/CATH Signed Date of Exam:05/11/18 CHEST 1 VIEW, AP/PA ONLY Patient History: Chest pain. Technique: Single frontal view of the chest Comparison: 02/18/2018 FINDINGS: The lung volumes are normal. No focal consolidation is seen. No large pleural effusion or pneumothorax is seen. The cardiomediastinal silhouette is normal in size and contour. No acute osseous abnormality is seen. IMPRESSION: No acute pulmonary abnormality seen. Dictated by: Dictated on workstation # [id number] Dict: 05/11/18 1529 Trans: 05/11/18 1710 CV [id number] Interpreted by: ROJAS ROLON MD Electronically signed by: ROJAS ROLON MD 05/11/18 1710 Reviewed: Reviewed by Me Departure Impression Primary Impression: NSTEMI (non-ST elevated myocardial infarction) Disposition: 09 ADMITTED INPATIENT Condition: Stable/Unchanged Admissions Decision to Admit Reason: Admit from ER (General) Decision to Admit/Date: May 11, 2018 Time/Decision to Admit Time: 15:50 Departure-Patient Inst. Referrals: [facility] (PCP/Family) Primary Care Physician JHOANA ZAIDI May 11, 2018 15:20
[2018-05-11] MEDS ORDERED: meTOproloL SUCCINATE 50 MG (TOPROL XL) TAB PO SCH (15:30)
[2018-05-11] MEDS ORDERED: CLOPIDOGREL 300 MG (PLAVIX) TABLET PO ONE ×2 (15:30→17:07)
--- NOTE | 2018-05-11 15:33 | Diagnostic Imaging Report ---
Patient History: Chest pain. Technique: Single frontal view of the chest Comparison: 02/18/2018 FINDINGS: The lung volumes are normal. No focal consolidation is seen. No large pleural effusion or pneumothorax is seen. The cardiomediastinal silhouette is normal in size and contour. No acute osseous abnormality is seen. IMPRESSION: No acute pulmonary abnormality seen. Dictated by: Dictated on workstation # [id number]
[2018-05-11] MEDS ORDERED: LIDOCAINE 1% INJ 20 ML 20 ML VIAL ONE (16:01)
[2018-05-11] MEDS ORDERED: HEParin (CATH LAB) 2,000 ML IV ONE (16:01)
[2018-05-11] MEDS ORDERED: MIDAZOLAM 5 MG/5 ML (VERSED) VIAL ONE (16:01)
[2018-05-11] MEDS ORDERED: fentaNYL INJECTION 100 MCG/2 ML AMP ONE (16:01)
--- NOTE | 2018-05-11 16:15 | Cardiology History & Physical ---
HPI-Cardiology Cardiology H&P Date of Admission 05/11/18 Primary Care Physician [facility] Attending Physician Keyon Bingham MD, MA FACP [facility] CCDS Consulting Physician FAITH CC: Chest discomfort HPI: 43 yo man with 2 weeks of intermittent chest discomfort: mid sternal, pressure-like, mod in intensity, sometimes radiating to shoulders, relieved/ improved today with s/l NTG, lasting up to 3 hours, not experienced prior to two weeks ago, no aggravating factors. Does not report shortness of breath or palp or syncope or leg swelling or cough or fever/chills Review of Systems-Cardiology Review of Systems Constitutional: No lightheadedness, No malaise, No weight loss, No weight gain Eyes: No vision change Ears/Nose/Throat: No ear discharge, No nasal drainage, No recent hearing loss Respiratory: As described under HPI Cardiovascular: As described under HPI Gastrointestinal: No constipation, No diarrhea, No nausea, No vomiting Genitourinary: No dysuria, No hematuria, No urine frequency changes Musculoskeletal: No back pain, No joint pain Skin: No rash, No ulcerations Psychiatric/Neurological: No seizure, No focal weakness, No syncope Hematologic: No bleeding abnormalities All Other Systems Reviewed Negative Unless Noted: Yes [id number]-Dygxeg Hx Patient Social History Alcohol Use: Denies Use Recreational Drug Use: No 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 Smoking Status: Current Everyday Smoker Type Used: Cigarettes 2nd Hand Smoke Exposure: Yes Recent Foreign Travel: No Recent Infectious Disease Expo: No Hospitalization with Isolation: Denies Immunizations Up To Date Tetanus Booster (TDap): More than 5yrs Past Medical History PMH As described under Assessment. Family Medical History Family Medical History: He reports a fam history of will CAD (mother) Family History: Cardiovascular disease Hypertension Psychosocial problem Allergies and Home Medications Allergies Coded Allergies: NKANo Known Allergies (Verified Allergy, Unknown, 09/22/05) No Known Drug Allergies (Unverified , 09/11/08) Home Medications Amoxicillin/Potassium Clav 1 Each Tablet, 1 EACH PO BID Prescribed by: BRANDON ROACH on 02/20/18 1301 Tramadol HCl 50 Mg Tablet, 50 MG PO Q4H Prescribed by: BRANDON ROACH on 02/20/18 1301 Patient Home Medication List Home Medication List Reviewed: Yes Physical Exam-Cardiology Physical Exam Vital Signs/I&O 05/11/18 05/11/18 14:34 14:34 Temp 97.5 Pulse 65 Resp 15 B/P (MAP) 150/98 (115) Pulse Ox 100 O2 Delivery Room Air Room Air Capillary Refill : Less Than 3 Seconds Constitutional: AAO x 3; No apparent distress; well-developed, well-nourished HEENT: PERRL, EOMI, hearing is well preserved Neck: No carotid bruit; carotid pulses are 2 + bilaterally, with good upstrokes Respiratory: No accessory muscle use; lungs clear to percussion, lungs clear to auscultation Cardiovascular: regular rate-rhythm, S1 and S2, systolic murmur (faint NELSON at card base) Gastrointestinal: No tender; soft; No guarding; audible bowel sounds Extremities: No clubbing, No cyanosis, No significant edema Skin: No rash on exposed areas, No ulcerations on exposed areas Data Review Labs Laboratory Tests 05/11/18 14:40: White Blood Count 10.2, Red Blood Count 5.43, Hemoglobin 16.0, Hematocrit 47, Mean Corpuscular Volume 87, Mean Corpuscular Hemoglobin 30, Mean Corpuscular Hemoglobin Concent 34, Red Cell Distribution Width 13.8, Platelet Count 310, Mean Platelet Volume 9.6, Neutrophils (%) (Auto) 58, Lymphocytes (%) (Auto) 30, Monocytes (%) (Auto) 10, Eosinophils (%) (Auto) 2, Basophils (%) (Auto) 0, Neutrophils # (Auto) 5.8, Lymphocytes # (Auto) 3.1, Monocytes # (Auto) 1.0, Eosinophils # (Auto) 0.2, Basophils # (Auto) 0.0, Prothrombin Time 13.5, INR Comment 1.0, Activated Partial Thromboplast Time 28, Sodium Level 140, Potassium Level 3.8, Chloride Level 99, Carbon Dioxide Level 28, Anion Gap 13, Blood Urea Nitrogen 26H, Creatinine 1.23, Estimat Glomerular Filtration Rate > 60, BUN/Creatinine Ratio 21, Glucose Level 83, Calcium Level 10.8H, Corrected Calcium , Magnesium Level 2.5H, Total Bilirubin 0.6, Aspartate Amino Transf (AST /SGOT) 27, Alanine Aminotransferase (ALT/SGPT) 43, Alkaline Phosphatase 76, Myoglobin 95.3H, Troponin I 0.30, Total Protein 9.0H, Albumin 5.3H Laboratory Tests 05/11/18 14:40 A/P-Cardiology Assessment/Admission Diagnosis Unstable angina vs NSTEMI Hypertension Chronic tobacco use Admission Status: Inpatient Order (span 2 midnights) Reason for Inpatient Admission: Ac CO Discussion and Recomendations * Urgent cath * We reviewed the rationale, procedure, risks, benefits, potential complications , alternatives of cath/PCI. He understands and provides informed consent * Further decisions based on cath results and hosp course Clinical Quality Measures AMI/AHF: ASA po Prior to arrival: Yes (243mg) KEYON BINGHAM MD FACP FACC CCDS May 11, 2018 16:15
[2018-05-11] MEDS ORDERED: NS IV 1000 ML 1,000 ML ONE (16:18)
--- NOTE | 2018-05-11 16:22 | Cardiac Procedure Note-CS/ASA ---
Pre-Procedure Note Pre-Op Procedure Note H&P Reviewed The H&P was reviewed, patient examined and no changes noted. Date H&P Reviewed: May 11, 2018 Time H&P Reviewed: 16:22 Conscious Sedation Pre-Proced Time 16:22 ASA Score 3 For ASA 3 and 4: Consider anesthesia and medical clearance. Also, for patients with a history of failed moderate sedation consider anesthesia. Airway Lungs Heart ASA score ASA 1: a normal healthy patient ASA 2: a patient with a mild systemic disease (mid diabetes, controlled hypertension, obesity ASA 3: a patient with a severe systemic disease that limits activity (angina , COPD, prior Myocardial infarction) ASA 4: a patient with an incapacitating disease that is a constant threat to life (CHF, renal failure) ASA 5: a moribund patient not expected to survive 24 hrs. (ruptured aneurysm) ASA 6: a declared brain patient whose organs are being harvested. For emergent operations, add the letter E after the classification Mallampati Classification Grade 2 Sedation Plan Analgesia, Amnesia, Plan communicated to team members, Discussed options with patient/fam, Discussed risks with patient/fam The patient is an appropriate candidate to undergo the planned procedure, sedation, and anesthesia. The patient immediately re-assessed prior to indication. NICHOLE BOLAÑOS MD FACP FAC CCDS May 11, 2018 16:22
[2018-05-11] MEDS ORDERED: HEParin 1000 UNIT/ML (10ML VIAL) FOR BOLUS ONE (16:36)
[2018-05-11] MEDS ORDERED: EPTIFIBATIDE BOLUS 20 ML IV ONE (16:37)
[2018-05-11] MEDS ORDERED: NITRO DRIP 25000 MCG/D5W 0 ML IV ONE (16:40)
[2018-05-11] MEDS ORDERED: NS IV 1000 ML 1,000 ML IV SCH (17:00)
[2018-05-11] MEDS ORDERED: TEMAZEPAM 7.5 MG CAP (RESTORIL) PO PRN (17:15)
[2018-05-11] MEDS ORDERED: ACETAMINOPHEN 325 MG TABLET PO PRN (17:15)
[2018-05-11] MEDS ORDERED: PATIENT MAY USE OWN MEDS, ALL PO SCH (17:15)
[2018-05-11] MEDS: NS IV 1000 ML 1,000 ML IV SCH (17:20)
--- NOTE | 2018-05-11 19:08 | CARDIAC CATHETERIZATION ---
DATE OF SERVICE: 05/11/2018 CARDIAC CATHETERIZATION REPORT The patient is a 43-year-old man with known coronary artery disease and presents with unstable angina versus non-ST elevation myocardial infarction. Urgent cardiac catheterization was carried out after having obtained an informed consent for cardiac catheterization and possible ad hoc coronary intervention. PROCEDURE: He was brought to the cardiac catheterization laboratory. Right groin was prepared and draped in the usual sterile fashion. 1% lidocaine was used for local anesthesia. Modified Seldinger technique was used to advance a 5-Wallisian sheath in right femoral artery. A 5-Wallisian JL4 catheter was used for left coronary angiography. A 5-Wallisian JR4 catheter was used for right coronary angiography. A 5-Wallisian pigtail catheter was used for left heart catheterization and left ventricular angiography. PERCUTANEOUS INTERVENTION TO THE RIGHT CORONARY ARTERY: Following completion of the diagnostic procedure, we carried out percutaneous intervention to the right coronary artery where the patient was exhibiting 80 to 90% in-stent restenosis. We exchanged the sheath over a wire for a 6-Wallisian sheath. We gave 5,500 units of intravenous heparin and a double bolus of Integrilin was also given during the procedure. We used a 6-Wallisian JR4 guide catheter to engage the right coronary artery. We advanced a BMW wire across the lesion and the tip was placed in the distal vessel. We carried out balloon angioplasty with Emerge 3.0 mm x 15 mm stent. Balloon inflations were carried out up to 20 atmospheres. Subsequent angiography revealed less than 10% stenosis at the previous site of 80 to 90% stenosis in the distal right coronary artery within previously placed stents. The patient tolerated the procedure well. Angioplasty equipment was removed. Angiography of the right femoral artery was carried out through the sheath. Mynx was used to achieve hemostasis. HEMODYNAMICS: Left ventricular end-diastolic pressure following coronary angiography was 14 mmHg. There was no significant pressure gradient on pullback across the aortic valve. Ascending aortic pressure was 116/78 with a mean of 99 mmHg. CORONARY ANGIOGRAPHY: Coronary calcification is present. The left coronary system shows diffuse mild to moderate disease. This includes the left anterior descending and left circumflex arteries. The right coronary artery is dominant. It has a long patent distal segment that involves the mid and distal portion of the right coronary artery. This had 80 to 90% stenosis in its mid portion to which successful balloon angioplasty was carried out, which reduced the stenosis to less than 10%. The distal right coronary artery, distal to the stent, where it bifurcates into the posterolateral and posterior descending branches, there is approximately 50% stenosis. At the proximal edge of the stent, there is 40 to 50% stenosis. LEFT VENTRICULAR ANGIOGRAPHY: Left ventricular angiography was carried out in the right anterior oblique projection. Global left ventricular systolic function is normal. Left ventricular ejection fraction of approximately 65%. There does not appear to be significant mitral regurgitation. CONCLUSIONS: 1. Coronary artery disease primarily consisting of 80-90% in-stent restenosis in the distal right coronary artery where he is known to have overlapping Taxus 3.5 x 32 and 3.5 x 8 mm stents that were placed several years ago. To this, successful balloon angioplasty was carried out, which reduced the stenosis to less than 10%. The rest of the coronary vessels have diffuse mild to moderate disease. 2. Normal global left ventricular systolic function with ejection fraction of approximately 65%. 3. Mild elevation of left ventricular end-diastolic pressure. DISCUSSION AND RECOMMENDATIONS: We have advised him to comply with risk factor modification. In particular, I have advised him to quit smoking immediately and completely. We have advised dual antiplatelet therapy, statin therapy, and beta-zhen therapy. Further decision and recommendations will be based on his hospital course. Job ID: [id number] DocumentID: [id number] Dictated Date: 05/11/2018 17:24:31 Steam Pressure Chamber Operator Date: 05/11/2018 19:08:04 Dictated By: NICHOLE BOLAÑOS MD, MA, FACP, FACC, MTDD
[2018-05-11] MEDS ORDERED: ATORVASTATIN 40 MG (LIPITOR) TABLET PO SCH (21:00)
[2018-05-12] VITALS: BP 110/76
[2018-05-12 03:18] LABS: HEMOGLOBIN 14.5 G/DL (13.3-17.7); MEAN PLATELET VOLUME 9.2 FL (7.4-10.4); RED BLOOD COUNT 4.87 10^6/uL (4.35-5.85); RED CELL DISTRIBUTION WIDTH 13.8 % (10.0-14.5); WHITE BLOOD COUNT 10.4 10^3/uL (4.3-11.0)
[2018-05-12] MEDS: NS IV 1000 ML 1,000 ML IV SCH (03:43)
[2018-05-12 04:00] VITALS: BP 130/83
[2018-05-12 04:08] LABS: BUN/CREATININE RATIO 22; CALCIUM 9.3 MG/DL (8.5-10.1); CARBON DIOXIDE 24 MMOL/L (21-32); CHLORIDE 102 MMOL/L (98-107); CHOLESTEROL 203 MG/DL (< 200); CREATININE SERUM 0.98 MG/DL (0.60-1.30); GFR ESTIMATED > 60; GLUCOSE 101 MG/DL (70-105); HDL CHOLESTEROL 32 MG/DL (40-60); POTASSIUM 3.7 MMOL/L (3.6-5.0); SODIUM 136 MMOL/L (135-145); TRIGLYCERIDES 111 MG/DL (<150); VLDL CHOLESTEROL 22 MG/DL (5-40)
--- OUTSIDE RECORDS SUMMARY | 2018-05-12 07:45 | XMS REPORT | Continuity of Care Document ---
Author Author [facility] Organization [facility] Address Unknown Phone Unavailable Allergies Active Description Code Type Severity Reaction Onset Reported/Identified Relationship to Patient Clinical Status Yes NKANo Known Allergies NKA Miscellaneous Allergy Unknown N/A 09/22/2005 Yes No Known Drug Allergies [id number] Drug Allergy Mild N/A 09/11/2008 Medications There is no data. Problems Date Dx Coded Attending Type Code [...] Estrada Ot I25.10 ATHSCL HEART DISEASE OF [place] CORONARY 10/02/2015 GELLENDER DO, DARSHAN Estrada Ot I25.2 OLD MYOCARDIAL INFARCTION 10/02/2015 GELLENDER DO, DARSHAN Estrada Ot R07.9 CHEST PAIN, UNSPECIFIED 10/02/2015 GELLENDER DO, DARSHAN Estrada Ot Z72.0 TOBACCO USE 10/02/2015 GELLENDER DO, DARSHAN Estrada Ot Z79.899 OTHER [facility] (CURRENT) DRUG THERAPY 10/02/2015 GELLENDER DO, DARSHAN Estrada Ot Z91.19 PATIENT'S NONCOMPLIANCE [facility] 10/02/2015 GELLENDER DO, DARSHAN Estrada Ot Z95.5 PRESENCE OF CORONARY ANGIOPLASTY IMPLANT 10/[facility] E78.5 HYPERLIPIDEMIA, UNSPECIFIED 10/15/2015 GELLENDER DO, DARSHAN Estrada Ot I10 ESSENTIAL (PRIMARY) HYPERTENSION 10/15/[facility] Estrada Ot I25.10 ATHSCL HEART DISEASE OF [place] CORONARY 10/15/[facility] D[facility] Estrada Ot I25.2 OLD MYOCARDIAL INFARCTION 10/15/2015 [facility] D[facility] Estrada Ot R07.9 CHEST PAIN, UNSPECIFIED 10/15/2015 GE[facility]END[facility] DO, DARSHAN Estrada Ot Z72.0 TOBACCO USE 10/15/2015 [facility] Estrada Ot Z79.899 OTHER [facility] (CURRENT) DRUG THERAPY 10/15/2015 GELLENDER DO, DARSHAN Estrada Ot Z91.19 PATIENT'S NONCOMPLIANCE [facility] 10/15/2015 GELLENDER DO, DARSHAN Estrada Ot Z95.5 PRESENCE OF CORONARY ANGIOPLASTY IMPLANT 11/22/2015 GELLENDER DO, DARSHAN Estrada Ot E78.5 HYPERLIPIDEMIA, UNSPECIFIED 11/22/2015 GELLENDER DO, DARSHAN Estrada Ot I10 ESSENTIAL (PRIMARY) HYPERTENSION 11/22/2015 GE[facility]END[facility] DO, DARSHAN Estrada Ot I25.10 ATHSCL HEART DISEASE OF [place] CORONARY 11/22/2015 GELLENDER DO, DARSHAN Estrada Ot I25.2 OLD MYOCARDIAL INFARCTION 11/22/2015 [facility]I DARSHAN Estrada Ot R07.9 CHEST PAIN, UNSPECIFIED 11/22/2015 [facility]I DARSHAN Estrada Ot Z72.0 TOBACCO USE 11/22/2015 [facility] DARSHAN Estrada Ot Z79.899 OTHER [facility] (CURRENT) DRUG THERAPY 11/22/2015 [facility] DARSHAN Estrada Ot Z91.19 PATIENT'S NONCOMPLIANCE [facility] 11/22/2015 [facility]I DARSHAN Estrada [...] PAIN 02/06/2016 ROLF DOLAN APRN Ot Z79.82 [facility] (CURRENT) USE OF ASPIRIN 02/06/2016 ROLF DOLAN APRN Ot Z79.899 OTHER [facility] [employer] (CURRENT) DRUG THERAPY 02/06/2016 ROLF DOLAN APRN Ot Z87.442 PERSONAL HISTORY OF URINARY CALCULI 11/18/2016 ROLF DOLAN APRN Ot F32.9 MAJOR DEPRESSIVE DISORDER, SINGLE EPISOD 11/18/2016 ROLF DOLAN APRN Ot F41.9 ANXIETY DISORDER, UNSPECIFIED 11/18/2016 ROLF DOLAN APRN Ot I10 ESSENTIAL (PRIMARY) HYPERTENSION 11/18/2016 ROLF DOLAN APRN Ot I25.2 OLD MYOCARDIAL INFARCTION 11/18/2016 ROLF DOLAN APRN Ot S60.022A CONTUSION OF LEFT INDEX FINGER W/O DAMAG 11/18/2016 ROLF DOLAN APRN Ot S62.637A DISP FX OF DISTAL PHALANX OF LEFT LITTLE 11/18/2016 ROLF DOLAN APRN Ot W23.1XXA CAUGHT, CRUSH, JAMMED, OR PINCHED BETW S 11/18/2016 ROLF DOLAN APRN Ot Z79.82 [facility] (CURRENT) USE OF ASPIRIN 11/18/2016 ROLF DOLAN APRN Ot Z95.5 PRESENCE OF CORONARY ANGIOPLASTY IMPLANT 11/20/2016 ROLF DOLAN APRN Ot F32.9 MAJOR DEPRESSIVE DISORDER, SINGLE EPISOD 11/20/2016 ROLF DOLAN APRN Ot F41.9 ANXIETY DISORDER, UNSPECIFIED 11/20/2016 ROLF DOLAN APRN Ot I10 ESSENTIAL (PRIMARY) HYPERTENSION 11/20/2016 ROLF DOLAN APRN Ot I25.2 OLD MYOCARDIAL INFARCTION 11/20/2016 ROLF DOLAN APRN Ot S60.022A CONTUSION OF LEFT INDEX FINGER W/O DAMAG 11/20/2016 ROLF DOLAN APRN Ot S62.637A DISP FX OF DISTAL PHALANX OF LEFT LITTLE 11/20/2016 ROLF DOLAN APRN Ot W23.1XXA CAUGHT, CRUSH, JAMMED, OR PINCHED BETW S 11/20/2016 ROLF DOLAN APRN Ot Z79.82 [facility] (CURRENT) USE OF ASPIRIN 11/20/2016 ROLF DOLAN APRN Ot Z95.5 PRESENCE OF CORONARY ANGIOPLASTY IMPLANT 02/20/2018 DARSHAN ANTHONY DO Ot E78.00 PURE HYPERCHOLESTEROLEMIA, UNSPECIFIED 02/20/2018 DARSHAN ANTHONY DO Ot F12.90 CANNABIS USE, UNSPECIFIED, UNCOMPLICATED 02/20/2018 DARSHAN ANTHONY DO Ot F17.210 NICOTINE DEPENDENCE, CIGARETTES, UNCOMPL 02/20/2018 DARSHAN ANTHONY DO Ot F32.9 MAJOR DEPRESSIVE DISORDER, SINGLE EPISOD 02/20/2018 DARSHAN ANTHNOY DO Ot F41.9 ANXIETY DISORDER, UNSPECIFIED 02/20/2018 DARSHAN ANTHONY DO Ot I10 ESSENTIAL (PRIMARY) HYPERTENSION 02/20/2018 DARSHAN ANTHONY DO Ot I25.10 ATHSCL HEART DISEASE OF [place] CORONARY 02/20/2018 [facility], DARSHAN Estrada Ot I25.2 OLD MYOCARDIAL INFARCTION 02/20/2018 [facility], DARSHAN Estrada Ot I88.0 NONSPECIFIC MESENTERIC LYMPHADENITIS 02/20/2018 [facility], DARSHAN Estrada Ot J30.2 OTHER SEASONAL ALLERGIC RHINITIS 02/20/2018 [facility], DARSHAN Estrada Ot K57.32 DVTRCLI OF LG INT W/O PERFORATION OR ABS 02/20/2018 [facility], DARSHAN Estrada Ot K57.92 DVTRCLI OF INTEST, PART UNSP, W/O PERF O 02/20/2018 [facility], DARSHAN Estrada Ot K76.0 FATTY (CHANGE OF) LIVER, NOT ELSEWHERE C 02/20/2018 [facility], DARSHAN Estrada Ot K85.90 ACUTE PANCREATITIS WITHOUT NECROSIS OR I 02/20/2018 [facility], DARSHAN Estrada Ot M54.9 DORSALGIA, UNSPECIFIED 02/20/2018 [facility] DARSHAN Estrada Ot Z23 ENCOUNTER FOR IMMUNIZATION 02/20/2018 [facility], DARSHAN Sean Ot Z95.5 PRESENCE OF CORONARY ANGIOPLASTY IMPLANT Procedures There is no data. Results Test Result Range Complete blood count (CBC) with automated white blood cell (WBC) differential - 02/18/18 08:40 Blood leukocytes automated count (number/volume) 18.2 10*3/uL 4.3-11.0 Blood erythrocytes automated count (number/volume) 4.82 10*6/uL 4.35-5.85 Venous blood hemoglobin measurement (mass/volume) 14.7 g/dL 13.3-17.7 Blood hematocrit (volume fraction) 41 % 40-54 Automated erythrocyte mean corpuscular volume 84 [foz_us] 80-99 Automated erythrocyte mean corpuscular hemoglobin (mass per erythrocyte) 31 pg 25-34 Automated erythrocyte mean corpuscular hemoglobin concentration measurement ( mass/volume) 36 g/dL 32-36 Automated erythrocyte distribution width ratio 12.6 % 10.0-14.5 Automated blood platelet count (count/volume) 249 10*3/uL 130-400 Automated blood platelet mean volume measurement 9.1 [foz_us] 7.4-10.4 Automated blood neutrophils/100 leukocytes 80 % 42-75 Automated blood lymphocytes/100 leukocytes 13 % 12-44 Blood monocytes/100 leukocytes 7 % 0-12 Automated blood eosinophils/100 leukocytes 0 % 0-10 Automated blood basophils/100 leukocytes 0 % 0-10 Blood neutrophils automated count (number/volume) 14.5 10*3 1.8-7.8 Blood lymphocytes automated count (number/volume) 2.3 10*3 1.0-4.0 Blood monocytes automated count (number/volume) 1.3 10*3 0.0-1.0 Automated eosinophil count 0.1 10*3/uL 0.0-0.3 Automated blood basophil count (count/volume) 0.0 10*3/uL 0.0-0.1 Comprehensive metabolic panel - 02/18/18 08:40 Serum or plasma sodium measurement (moles/volume) 135 mmol/L 135-145 Serum or plasma potassium measurement (moles/volume) 3.3 mmol/L 3.6-5.0 Serum or plasma chloride measurement (moles/volume) 101 mmol/L 98-107 Carbon dioxide 23 mmol/L 21-32 Serum or plasma anion gap determination (moles/volume) 11 mmol/L 5-14 Serum or plasma urea nitrogen measurement (mass/volume) 16 mg/dL 7-18 Serum or plasma creatinine measurement (mass/volume) 0.88 mg/dL 0.60-1.30 Serum or plasma urea nitrogen/creatinine mass ratio 18 NRG Serum or plasma creatinine measurement with calculation of estimated glomerular filtration rate > NRG Serum or plasma glucose measurement (mass/volume) 104 mg/dL 70-105 Serum or plasma calcium measurement (mass/volume) 9.8 mg/dL 8.5-10.1 Serum or plasma total bilirubin measurement (mass/volume) 0.5 mg/dL 0.1-1.0 Serum or plasma alkaline phosphatase measurement (enzymatic activity/volume) 57 U/L 40-136 Serum or plasma aspartate aminotransferase measurement (enzymatic activity/ volume) 19 U/L 5-34 Serum or plasma alanine aminotransferase measurement (enzymatic activity/volume ) 47 U/L 0-55 Serum or plasma protein measurement (mass/volume) 7.6 g/dL 6.4-8.2 Serum or plasma albumin measurement (mass/volume) 4.7 g/dL 3.2-4.5 Serum or plasma troponin i.cardiac measurement (mass/volume) - 02/18/18 08:40 Serum or plasma troponin i.cardiac measurement (mass/volume) < ng/ mL <0.30 Lipase - 02/18/18 08:40 Lipase 159 U/L 8-78 Serum or plasma triglyceride measurement (mass/volume) - 02/18/18 08:40 Serum or plasma triglyceride measurement (mass/volume) 162 mg/dL <150 Serum or plasma ethanol measurement (mass/volume) - 02/18/18 08:40 Serum or plasma ethanol measurement (mass/volume) < mg/dL <10 Hemoglobin A1c - 02/18/18 08:40 Blood hemoglobin A1C measurement (mass/volume) 5.3 % 4.0- 5.6 MEAN BLOOD GLUCOSE 105 % <=126 Urine drug screening test - 02/18/18 12:55 Urine phencyclidine detection by screening method NEGATIVE NEGATIVE Urine benzodiazepines detection by screening method NEGATIVE NEGATIVE Urine cocaine detection NEGATIVE NEGATIVE Urine amphetamines detection by screening method NEGATIVE NEGATIVE Urine methamphetamine detection by screening method NEGATIVE NEGATIVE Urine cannabinoids detection by screening method POSITIVE NEGATIVE Urine opiates detection by screening method POSITIVE NEGATIVE Urine barbiturates detection NEGATIVE NEGATIVE Screening urine tricyclic antidepressants detection NEGATIVE NEGATIVE Urine methadone detection by screening method NEGATIVE NEGATIVE Urine oxycodone detection NEGATIVE NEGATIVE Urine propoxyphene detection NEGATIVE NEGATIVE Complete urinalysis with reflex to culture - 02/18/18 12:55 Urine color determination YELLOW NRG Urine clarity determination SLIGHTLY CLOUDY NRG Urine pH measurement by test strip 6.5 5-9 Specific gravity of urine by test strip 1.010 1.016- 1.022 Urine protein assay by test strip, semi-quantitative NEGATIVE NEGATIVE Urine glucose detection by automated test strip NEGATIVE NEGATIVE Erythrocytes detection in urine sediment by light microscopy NEGATIVE NEGATIVE Urine ketones detection by automated test strip NEGATIVE NEGATIVE Urine nitrite detection by test strip NEGATIVE NEGATIVE Urine total bilirubin detection by test strip NEGATIVE NEGATIVE Urine urobilinogen measurement by automated test strip (mass/volume) NORMAL NORMAL Urine leukocyte esterase detection by dipstick NEGATIVE NEGATIVE Automated urine sediment erythrocyte count by microscopy (number/high power field) RARE NRG Automated urine sediment leukocyte count by microscopy (number/high power field ) NONE NRG Bacteria detection in urine sediment by light microscopy NEGATIVE NRG Squamous epithelial cells detection in urine sediment by light microscopy RARE NRG Crystals detection in urine sediment by light microscopy NONE NRG Casts detection in urine sediment by light microscopy NONE NRG Mucus detection in urine sediment by light microscopy NEGATIVE NRG Complete urinalysis with reflex to culture NO NRG Complete blood count (CBC) with automated white blood cell (WBC) differential - 02/19/18 05:25 Blood leukocytes automated count (number/volume) 15.2 10*3/uL 4.3-11.0 Blood erythrocytes automated count (number/volume) 4.93 10*6/uL 4.35-5.85 Venous blood hemoglobin measurement (mass/volume) 14.8 g/dL 13.3-17.7 Blood hematocrit (volume fraction) 43 % 40-54 Automated erythrocyte mean corpuscular volume 87 [foz_us] 80-99 Automated erythrocyte mean corpuscular hemoglobin (mass per erythrocyte) 30 pg 25-34 Automated erythrocyte mean corpuscular hemoglobin concentration measurement ( mass/volume) 35 g/dL 32-36 Automated erythrocyte distribution width ratio 13.1 % 10.0-14.5 Automated blood platelet count (count/volume) 222 10*3/uL 130-400 Automated blood platelet mean volume measurement 9.4 [foz_us] 7.4-10.4 Automated blood neutrophils/100 leukocytes 76 % 42-75 Automated blood lymphocytes/100 leukocytes 14 % 12-44 Blood monocytes/100 leukocytes 10 % 0-12 Automated blood eosinophils/100 leukocytes 1 % 0-10 Automated blood basophils/100 leukocytes 0 % 0-10 Blood neutrophils automated count (number/volume) 11.5 10*3 1.8-7.8 Blood lymphocytes automated count (number/volume) 2.1 10*3 1.0-4.0 Blood monocytes automated count (number/volume) 1.5 10*3 0.0-1.0 Automated eosinophil count 0.1 10*3/uL 0.0-0.3 Automated blood basophil count (count/volume) 0.0 10*3/uL 0.0-0.1 Comprehensive metabolic panel - 02/19/18 05:25 Serum or plasma sodium measurement (moles/volume) 136 mmol/L 135-145 Serum or plasma potassium measurement (moles/volume) 3.8 mmol/L 3.6-5.0 Serum or plasma chloride measurement (moles/volume) 103 mmol/L 98-107 Carbon dioxide 23 mmol/L 21-32 Serum or plasma anion gap determination (moles/volume) 10 mmol/L 5-14 Serum or plasma urea nitrogen measurement (mass/volume) 16 mg/dL 7-18 Serum or plasma creatinine measurement (mass/volume) 1.03 mg/dL 0.60-1.30 Serum or plasma urea nitrogen/creatinine mass ratio 16 NRG Serum or plasma creatinine measurement with calculation of estimated glomerular filtration rate > NRG Serum or plasma glucose measurement (mass/volume) 104 mg/dL 70-105 Serum or plasma calcium measurement (mass/volume) 9.2 mg/dL 8.5-10.1 Serum or plasma total bilirubin measurement (mass/volume) 1.6 mg/dL 0.1-1.0 Serum or plasma alkaline phosphatase measurement (enzymatic activity/volume) 58 U/L 40-136 Serum or plasma aspartate aminotransferase measurement (enzymatic activity/ volume) 13 U/L 5-34 Serum or plasma alanine aminotransferase measurement (enzymatic activity/volume ) 30 U/L 0-55 Serum or plasma protein measurement (mass/volume) 7.0 g/dL 6.4-8.2 Serum or plasma albumin measurement (mass/volume) 4.2 g/dL 3.2-4.5 CALCIUM CORRECTED 9.0 mg/dL 8.5-10.1 Lipid 1996 panel - 02/19/18 05:25 Serum or plasma triglyceride measurement (mass/volume) 79 mg/dL <150 Serum or plasma cholesterol measurement (mass/volume) 175 mg/dL < 200 Serum or plasma cholesterol in HDL measurement (mass/volume) 36 mg/ dL 40-60 Cholesterol in LDL [mass/volume] in serum or plasma by direct assay 127 mg/dL 1-129 Serum or plasma cholesterol in VLDL measurement (mass/volume) 16 mg/ dL 5-40 Lipase - 02/19/18 05:45 Lipase 25 U/L 8-78 Complete blood count (CBC) with automated white blood cell (WBC) differential - 02/20/18 06:32 Blood leukocytes automated count (number/volume) 14.4 10*3/uL 4.3-11.0 Blood erythrocytes automated count (number/volume) 4.50 10*6/uL 4.35-5.85 Venous blood hemoglobin measurement (mass/volume) 13.9 g/dL 13.3-17.7 Blood hematocrit (volume fraction) 39 % 40-54 Automated erythrocyte mean corpuscular volume 87 [foz_us] 80-99 Automated erythrocyte mean corpuscular hemoglobin (mass per erythrocyte) 31 pg 25-34 Automated erythrocyte mean corpuscular hemoglobin concentration measurement ( mass/volume) 35 g/dL 32-36 Automated erythrocyte distribution width ratio 12.6 % 10.0-14.5 Automated blood platelet count (count/volume) 195 10*3/uL 130-400 Automated blood platelet mean volume measurement 9.6 [foz_us] 7.4-10.4 Automated blood neutrophils/100 leukocytes 76 % 42-75 Automated blood lymphocytes/100 leukocytes 13 % 12-44 Blood monocytes/100 leukocytes 11 % 0-12 Automated blood eosinophils/100 leukocytes 1 % 0-10 Automated blood basophils/100 leukocytes 0 % 0-10 Blood neutrophils automated count (number/volume) 10.9 10*3 1.8-7.8 Blood lymphocytes automated count (number/volume) 1.8 10*3 1.0-4.0 Blood monocytes automated count (number/volume) 1.6 10*3 0.0-1.0 Automated eosinophil count 0.1 10*3/uL 0.0-0.3 Automated blood basophil count (count/volume) 0.0 10*3/uL 0.0-0.1 Whole blood basic metabolic panel - 02/20/18 06:32 Serum or plasma sodium measurement (moles/volume) 136 mmol/L 135-145 Serum or plasma potassium measurement (moles/volume) 4.0 mmol/L 3.6-5.0 Serum or plasma chloride measurement (moles/volume) 106 mmol/L 98-107 Carbon dioxide 22 mmol/L 21-32 Serum or plasma anion gap determination (moles/volume) 8 mmol/L 5-14 Serum or plasma urea nitrogen measurement (mass/volume) 14 mg/dL 7-18 Serum or plasma creatinine measurement (mass/volume) 0.92 mg/dL 0.60-1.30 Serum or plasma urea nitrogen/creatinine mass ratio 15 NRG Serum or plasma creatinine measurement with calculation of estimated glomerular filtration rate > NRG Serum or plasma glucose measurement (mass/volume) 97 mg/dL 70-105 Serum or plasma calcium measurement (mass/volume) 9.0 mg/dL 8.5-10.1 Serum or plasma amylase measurement (enzymatic activity/volume) - 02/20/18 06: 32 Serum or plasma amylase measurement (enzymatic activity/volume) 27 U /L 25-125 Lipase - 02/20/18 06:32 Lipase 13 U/L 8-78 Complete blood count (CBC) with automated white blood cell (WBC) differential - 05/11/18 14:40 Blood leukocytes automated count (number/volume) 10.2 10*3/uL 4.3-11.0 Blood erythrocytes automated count (number/volume) 5.43 10*6/uL 4.35-5.85 Venous blood hemoglobin measurement (mass/volume) 16.0 g/dL 13.3-17.7 Blood hematocrit (volume fraction) 47 % 40-54 Automated erythrocyte mean corpuscular volume 87 [foz_us] 80-99 Automated erythrocyte mean corpuscular hemoglobin (mass per erythrocyte) 30 pg 25-34 Automated erythrocyte mean corpuscular hemoglobin concentration measurement ( mass/volume) 34 g/dL 32-36 Automated erythrocyte distribution width ratio 13.8 % 10.0-14.5 Automated blood platelet count (count/volume) 310 10*3/uL 130-400 Automated blood platelet mean volume measurement 9.6 [foz_us] 7.4-10.4 Automated blood neutrophils/100 leukocytes 58 % 42-75 Automated blood lymphocytes/100 leukocytes 30 % 12-44 Blood monocytes/100 leukocytes 10 % 0-12 Automated blood eosinophils/100 leukocytes 2 % 0-10 Automated blood basophils/100 leukocytes 0 % 0-10 Blood neutrophils automated count (number/volume) 5.8 10*3 1.8-7.8 Blood lymphocytes automated count (number/volume) 3.1 10*3 1.0-4.0 Blood monocytes automated count (number/volume) 1.0 10*3 0.0-1.0 Automated eosinophil count 0.2 10*3/uL 0.0-0.3 Automated blood basophil count (count/volume) 0.0 10*3/uL 0.0-0.1 PT panel in platelet poor plasma by coagulation assay - 05/11/18 14:40 Prothrombin time (PT) in platelet poor plasma by coagulation assay 13.5 s 12.2-14.7 INR in platelet poor plasma or blood by coagulation assay 1.0 0.8-1.4 Activated partial thromboplastin time (aPTT) in platelet poor plasma bycoagulation assay - 05/11/18 14:40 Activated partial thromboplastin time (aPTT) in platelet poor plasma bycoagulation assay 28 s 24-35 Comprehensive metabolic panel - 05/11/18 14:40 Serum or plasma sodium measurement (moles/volume) 140 mmol/L 135-145 Serum or plasma potassium measurement (moles/volume) 3.8 mmol/L 3.6-5.0 Serum or plasma chloride measurement (moles/volume) 99 mmol/L 98-107 Carbon dioxide 28 mmol/L 21-32 Serum or plasma anion gap determination (moles/volume) 13 mmol/L 5-14 Serum or plasma urea nitrogen measurement (mass/volume) 26 mg/dL 7-18 Serum or plasma creatinine measurement (mass/volume) 1.23 mg/dL 0.60-1.30 Serum or plasma urea nitrogen/creatinine mass ratio 21 NRG Serum or plasma creatinine measurement with calculation of estimated glomerular filtration rate > NRG Serum or plasma glucose measurement (mass/volume) 83 mg/dL 70-105 Serum or plasma calcium measurement (mass/volume) 10.8 mg/dL 8.5-10.1 Serum or plasma total bilirubin measurement (mass/volume) 0.6 mg/dL 0.1-1.0 Serum or plasma alkaline phosphatase measurement (enzymatic activity/volume) 76 U/L 40-136 Serum or plasma aspartate aminotransferase measurement (enzymatic activity/ volume) 27 U/L 5-34 Serum or plasma alanine aminotransferase measurement (enzymatic activity/volume ) 43 U/L 0-55 Serum or plasma protein measurement (mass/volume) 9.0 g/dL 6.4-8.2 Serum or plasma albumin measurement (mass/volume) 5.3 g/dL 3.2-4.5 Magnesium - 05/11/18 14:40 Magnesium 2.5 mg/dL 1.8-2.4 Serum or plasma troponin i.cardiac measurement (mass/volume) - 05/11/18 14:40 Serum or plasma troponin i.cardiac measurement (mass/volume) 0.30 ng /mL <0.30 Myoglobin, serum - 05/11/18 14:40 Myoglobin, serum 95.3 ng/mL 10.0-92.0 Encounters ACCT No. Visit Date/Time Discharge Status Pt. Type Provider Facility Loc./Unit Complaint [id number] 02/18/2018 13:27:00 02/20/2018 13:40:00 DIS Inpatient DARSHAN ANTHONY DO [facility] 4TH PANCREATITIS [id number] 11/18/2016 18:34:00 11/18/2016 19:22:00 DIS Emergency ROLF DOLAN BED OPERATOR [facility] ER LT PINKIE FINGER PAIN/ SLAMMED IN DOOR [id number] 02/06/2016 10:26:00 02/06/2016 11:26:00 DIS Emergency ROLF DOLAN BED OPERATOR [facility] ER BACK PAIN [id number] 12/01/2015 15:37:00 12/01/2015 17:31:00 DIS Emergency DIETER RIVAS, KELLE Benitez [facility] ER DENTAL PAIN [id number] 10/01/2015 18:45:00 10/02/2015 17:04:00 DIS Outpatient DARSHAN ANTHONY DO [facility] CP,HYPERTENSION [id number] 08/18/2015 10:10:00 08/18/2015 11:46:00 DIS Emergency ROLF DOLAN BED OPERATOR [facility] ER [id number] 01/28/2015 02:58:00 01/28/2015 04:34:00 DIS Emergency VIMAL BROWNING MD [facility] ER [id number] 11/27/2014 14:02:00 11/27/2014 16:00:00 DIS Emergency ROLF DOLAN APRN [facility] ER [id number] 01/24/2014 20:42:00 01/24/2014 22:57:00 DIS Emergency ROLF DOLAN BED OPERATOR [facility] ER [id number] 05/11/2018 15:39:00 ACT Outpatient MIKY RIVAS FACC, NICHOLE PEREZ CCDS [facility] ICU HEART CATH
[2018-05-12 07:50] VITALS: BP 136/84
[2018-05-12] MEDS ORDERED: SERT50TA9 PO (08:41)
[2018-05-12] MEDS ORDERED: LISI1TAB6 PO (08:41)
[2018-05-12] MEDS ORDERED: ASPI-983 PO (08:41)
[2018-05-12] MEDS ORDERED: CLOPIDOGREL 75 MG (PLAVIX) TABLET PO SCH (09:00)
[2018-05-12] MEDS ORDERED: ASPIRIN 81 MG CHEW (CHILDREN'S ASA) PO SCH (09:00)
[2018-05-12] MEDS ORDERED: meTOproloL SUCCINATE 50 MG (TOPROL XL) TAB PO SCH (09:00)
--- NOTE | 2018-05-12 09:05 | Progress Note-Cardiology ---
Cardiology SOAP Progress Note Subjective: No cp or palp or syncope or shortness of breath Mild to mod R groin discomfort Objective: I&O/Vital Signs 05/11/18 05/11/18 05/12/18 05/12/18 22:00 23:00 00:00 00:00 Temp 97.3 Pulse 65 59 Resp 25 11 B/P (MAP) 115/83 (94) 118/68 (85) Pulse Ox 98 98 O2 Delivery Room Air Room Air Room Air 05/12/18 05/12/18 05/12/18 05/12/18 00:00 01:00 04:00 04:00 Temp 98.0 Pulse 69 51 65 Resp 13 10 B/P (MAP) 110/76 (87) 130/83 (99) Pulse Ox 98 O2 Delivery Room Air Room Air Room Air 05/12/18 05/12/18 07:50 07:52 Temp 97.5 Pulse 55 Resp 16 B/P (MAP) 136/84 (101) Pulse Ox 99 99 O2 Delivery Room Air Room Air 05/12/18 00:00 Intake Total 300 ml Output Total 500 ml Balance -200 ml Weight (Pounds): 184 Weight (Ounces): 0.0 Weight (Calculated Kilograms): 83.267322 Condition: DP/PT pulses palpable Bruising: mild bruising Constitutional: AAO x 3; No apparent distress; well-developed, well-nourished Respiratory: No accessory muscle use; lungs clear to percussion, lungs clear to auscultation Cardiovascular: regular rate-rhythm, S1 and S2, systolic murmur (faint NELSON at card base) Gastrointestional: No tender; soft; No guarding; audible bowel sounds Extremities: No clubbing, No cyanosis, No significant edema Neurologic/Psychiatric: oriented x 3, grossly intact, power is 5/5 both on sides Skin: No rash on exposed areas, No ulcerations on exposed areas Results/Procedures: Labs Laboratory Tests 05/11/18 14:40: White Blood Count 10.2, Red Blood Count 5.43, Hemoglobin 16.0, Hematocrit 47, Mean Corpuscular Volume 87, Mean Corpuscular Hemoglobin 30, Mean Corpuscular Hemoglobin Concent 34, Red Cell Distribution Width 13.8, Platelet Count 310, Mean Platelet Volume 9.6, Neutrophils (%) (Auto) 58, Lymphocytes (%) (Auto) 30, Monocytes (%) (Auto) 10, Eosinophils (%) (Auto) 2, Basophils (%) (Auto) 0, Neutrophils # (Auto) 5.8, Lymphocytes # (Auto) 3.1, Monocytes # (Auto) 1.0, Eosinophils # (Auto) 0.2, Basophils # (Auto) 0.0, Prothrombin Time 13.5, INR Comment 1.0, Activated Partial Thromboplast Time 28, Sodium Level 140, Potassium Level 3.8, Chloride Level 99, Carbon Dioxide Level 28, Anion Gap 13, Blood Urea Nitrogen 26H, Creatinine 1.23, Estimat Glomerular Filtration Rate > 60, BUN/Creatinine Ratio 21, Glucose Level 83, Calcium Level 10.8H, Corrected Calcium , Magnesium Level 2.5H, Total Bilirubin 0.6, Aspartate Amino Transf (AST /SGOT) 27, Alanine Aminotransferase (ALT/SGPT) 43, Alkaline Phosphatase 76, Myoglobin 95.3H, Troponin I 0.30, Total Protein 9.0H, Albumin 5.3H 05/12/18 03:10: White Blood Count 10.4, Red Blood Count 4.87, Hemoglobin 14.5, Hematocrit 42, Mean Corpuscular Volume 86, Mean Corpuscular Hemoglobin 30, Mean Corpuscular Hemoglobin Concent 35, Red Cell Distribution Width 13.8, Platelet Count 278, Mean Platelet Volume 9.2, Sodium Level 136, Potassium Level 3.7, Chloride Level 102, Carbon Dioxide Level 24, Anion Gap 10, Blood Urea Nitrogen 22H, Creatinine 0.98, Estimat Glomerular Filtration Rate > 60, BUN/Creatinine Ratio 22, Glucose Level 101, Calcium Level 9.3, Triglycerides Level 111, Cholesterol Level 203H, LDL Cholesterol Direct 161H, VLDL Cholesterol 22, HDL Cholesterol 32L Laboratory Tests 05/11/18 14:40 05/12/18 03:10 A/P: Assessment: Small ac NSTEMI on 05/11/18 CAD. Last card cath of 05/11/18: 1. Coronary artery disease primarily consisting of 80-90% in-stent restenosis in the distal right coronary artery where he is known to have overlapping Taxus 3.5 x 32 and 3.5 x 8 mm stents that were placed several years ago. To this, successful balloon angioplasty was carried out, which reduced the stenosis to less than 10%. The rest of the coronary vessels have diffuse mild to moderate disease. Normal global left ventricular systolic function with ejection fraction of approximately 65%. Mild elevation of left ventricular end-diastolic pressure. Hypertension Chronic tobacco use Plan: * I again reviewed with him the findings of card cath and interventions undertaken * Focus of CV management is on risk factor mod * We have recommended therapy with statin, DAPT, bb * We have advised immediate and complete smoking cessation * We have advised another day of hospitalization, but he refuses. Feels well and wishes to go home * Outpt f/u is advised Clinical Quality Measures AMI/AHF: ASA po Prior to arrival: Yes (243mg) NICHOLE BOLAÑOS MD FACP FACC CCDS May 12, 2018 09:05
--- NOTE | 2018-05-12 09:08 | Cardiology Discharge Summary ---
Diagnosis/Chief Complaint Date of Admission 05/11/18 Date of Discharge 05/12/18 Final/Discharge Diagnosis Small ac NSTEMI on 05/11/18 CAD. Last card cath of 05/11/18: 1. Coronary artery disease primarily consisting of 80-90% in-stent restenosis in the distal right coronary artery where he is known to have overlapping Taxus 3.5 x 32 and 3.5 x 8 mm stents that were placed several years ago. To this, successful balloon angioplasty was carried out, which reduced the stenosis to less than 10%. The rest of the coronary vessels have diffuse mild to moderate disease. Normal global left ventricular systolic function with ejection fraction of approximately 65%. Mild elevation of left ventricular end-diastolic pressure. Hypertension Chronic tobacco use Chief Complaint/HPI Chief Complaint/HPI CC: Chest discomfort HPI: 43 yo man with 2 weeks of intermittent chest discomfort: mid sternal, pressure-like, mod in intensity, sometimes radiating to shoulders, relieved/ improved today with s/l NTG, lasting up to 3 hours, not experienced prior to two weeks ago, no aggravating factors. Does not report shortness of breath or palp or syncope or leg swelling or cough or fever/chills Please refer to my progress note of today's date for hosp course and condition at discharge Discharge Summary Procedures Card cath and PCI to RCA on 05/11/18 Hospital Course Pending Labs Laboratory Tests 05/12/18 03:10: White Blood Count 10.4, Red Blood Count 4.87, Hemoglobin 14.5, Hematocrit 42, Mean Corpuscular Volume 86, Mean Corpuscular Hemoglobin 30, Mean Corpuscular Hemoglobin Concent 35, Red Cell Distribution Width 13.8, Platelet Count 278, Mean Platelet Volume 9.2, Sodium Level 136, Potassium Level 3.7, Chloride Level 102, Carbon Dioxide Level 24, Anion Gap 10, Blood Urea Nitrogen 22, Creatinine 0.98, Estimat Glomerular Filtration Rate > 60, BUN/Creatinine Ratio 22, Glucose Level 101, Calcium Level 9.3, Triglycerides Level 111, Cholesterol Level 203, LDL Cholesterol Direct 161, VLDL Cholesterol 22, HDL Cholesterol 32 Discussion & Recommendations Home Medications Reviewed patient Home Medication Reconciliation performed by pharmacy medication reconciliations insulation technician and/or nursing. Patients Allergies have been reviewed. Discharge Home Medications: Reviewed and agree with Discharge Medication list on patient's Discharge Instruction sheet Clinical Quality Measures AMI/AHF: ASA po Prior to arrival: Yes (243mg) DVT/VTE Risk/Contraindication: Risk Factor Score Per Nursin RFS Level Per Nursing on Admit: 4+=Very High NICHOLE BOLAÑOS MD FACP FAC CCDS May 12, 2018 09:08
[2018-05-12] MEDS ORDERED: METO-370 PO (09:11)
[2018-05-12] MEDS ORDERED: CLOP75TA28 PO (09:11)
[2018-05-12] MEDS ORDERED: ATOR40TA PO (09:11)
[2018-05-12] MEDS ORDERED: ASPI-999 PO (09:11)
--- NOTE | 2018-05-12 09:12 | Discharge Inst-Cardiology ---
Discharge Inst-Cardiac Discharge Medications New Medications: Aspirin (Aspirin) 81 Mg Tab.chew 81 MG PO DAILY for 90 Days, #90 TAB 3 Refills Atorvastatin Calcium (Lipitor) 40 Mg Tablet 40 MG PO HS for 90 Days, #90 TAB 3 Refills Clopidogrel Bisulfate (Clopidogrel) 75 Mg Tablet 75 MG PO DAILY for 90 Days, #90 TAB 3 Refills Metoprolol Succinate (Metoprolol Succinate) 50 Mg Tab.er.24h 50 MG PO DAILY for 90 Days, #90 TAB 3 Refills Continued Medications: Sertraline HCl (Sertraline HCl) 50 Mg Tablet 50 MG PO HS, TAB Discontinued Medications: Aspirin (Aspirin EC) 81 Mg Tablet.dr 81 MG PO DAILY, TAB Lisinopril/Hydrochlorothiazide (Lisinopril-Hctz 10-12.5 mg Tab) 1 Each Tablet 1 TAB PO BID, TAB Patient Instructions Patient Instructions: No smoking Orders-Post D/C & Referrals Pneu Vac Indicated: Yes NICHOLE BOLAÑOS MD FACP FAC CCDS May 12, 2018 09:12
--- NOTE | 2018-05-12 09:12 | Discharge Inst-Post CATH ---
Discharge Inst-CATH Post Cardiac Cath D/C Inst Follow Up/Plan F/u with Dr Bingham early next week CARDIAC CATH DISCHARGE INSTRUCTIONS *Hold Metformin for 48 hours post heart cath. ACTIVITY * Go Home directly and rest. * Limit activity of the leg (or wrist if it was used) for 7 days including aerobics, swimming, jogging, bicycling, etc. * Restrict stair-climbing for 7 days if possible, if not, climb up with your non -cath leg, then bring together on the same step. * Avoid lifting, pushing, pulling or excessive movement of the affected extremity for 7 days. * Customary sexual activity may be resumed after 2 days-use caution not to use a position that strains or causes pain to the affected extremity. * No driving for 24 hours. * NO SMOKING. * Avoid straining for bowel movements for 7 days. * Gentle walking on level ground is allowed. * Returning to work will depend on the type of procedure and the results. Your doctor will discuss this with you. CALL YOUR DOCTOR FOR ANY OF THE FOLLOWING: *If bleeding from the puncture site occurs- Apply gentle pressure to site with clean cloth and call your doctor or EMS. * If a knot or lump forms under the skin, increases in size, or causes pain. * If bruising appears to be worsening or moving further down your leg instead of disappearing. * Temperature above 101 F. CARE OF YOUR GROIN INCISION; * Bruising or purple discoloration of the skin near the puncture site is common. * You may shower only, no bathtub bathing for 5 days. Be careful to avoid slipping as your leg may feel stiff. * If a closure device was used on your femoral artery, please see the attached guide regarding care of the device and your leg. * Leave the dressing on, until removed by office staff. CARE OF YOUR WRIST INCISION; * Bruising or purple discoloration of the skin near the puncture site is common. * You may shower. * DO NOT submerge wrist. * Leave dressing on, until removed by office staff.. NICHOLE BINGHAM MD [facility] CCDS May 12, 2018 09:12
[2018-05-12 09:55] VITALS: BP 136/84
--- OUTSIDE RECORDS SUMMARY | 2018-05-13 14:07 | XMS REPORT | Continuity of Care Document ---
Author Author [facility] Organization [facility] Address Unknown Phone Unavailable Allergies Active Description Code Type Severity Reaction Onset Reported/Identified Relationship to Patient Clinical Status Yes NKANo Known Allergies NKA Miscellaneous Allergy Unknown N/A 09/22/2005 Yes No Known Drug Allergies [id number] Drug Allergy Mild N/A 09/11/2008 Medications There [...] Estrada Ot I25.10 ATHSCL HEART DISEASE OF [place] CORONARY 10/02/2015 GELLENDER DO, DARSHAN Estrada Ot I25.2 OLD MYOCARDIAL INFARCTION 10/02/2015 GELLENDER DO, DARSHAN Estrada Ot R07.9 CHEST PAIN, UNSPECIFIED 10/02/2015 GELLENDER DO, DARSHAN Estrada Ot Z72.0 TOBACCO USE 10/02/2015 GELLENDER DO, DARSHAN Estrada Ot Z79.899 OTHER GROUP HOME (CURRENT) DRUG THERAPY 10/02/2015 GELLENDER DO, DARSHAN Estrada Ot Z91.19 PATIENT'S NONCOMPLIANCE [facility] MEDICAL TR 10/02/2015 GELLENDER DO, DARSHAN Estrada Ot Z95.5 PRESENCE OF CORONARY ANGIOPLASTY IMPLANT [facility]/15[facility] E78.5 HYPERLIPIDEMIA, UNSPECIFIED 10/15/2015 GELLENDER DO, DARSHAN Estrada Ot I10 ESSENTIAL (PRIMARY) HYPERTENSION 10/15/2015 [facility] Estrada Ot I25.10 ATHSCL HEART DISEASE OF [place] CORONARY 10/15/2015 [facility], DARSHAN Estrada Ot I25.2 OLD MYOCARDIAL INFARCTION 10/15/2015 [facility], DARSHAN Estrada Ot R07.9 CHEST PAIN, UNSPECIFIED 10/15/2015 GELLENDER DO, DARSHAN Estrada Ot Z72.0 TOBACCO USE 10/15/2015 [facility], DARSHAN Estrada Ot Z79.899 OTHER GROUP HOME (CURRENT) DRUG THERAPY 10/15/2015 GELLENDER DO, DARSHAN Estrada Ot Z91.19 PATIENT'S NONCOMPLIANCE [facility] MEDICAL TR 10/15/2015 GELLENDER DO, DARSHAN Estrada Ot Z95.5 PRESENCE OF CORONARY ANGIOPLASTY IMPLANT 11/22/2015 GELLENDER DO, DARSHAN Estrada Ot E78.5 HYPERLIPIDEMIA, UNSPECIFIED 11/22/2015 GELLENDER DO, DARSHAN Estrada Ot I10 ESSENTIAL (PRIMARY) HYPERTENSION 11/22/2015 GELLENDER DO, DARSHAN Estrada Ot I25.10 ATHSCL HEART DISEASE OF [place] CORONARY 11/22/2015 GELLENDER DO, DARSHAN Estrada Ot I25.2 OLD MYOCARDIAL INFARCTION 11/22/2015 GABRIELLE RAI DARSHAN Estrada Ot R07.9 CHEST PAIN, UNSPECIFIED 11/22/2015 GABRIELLE RAI DARSHAN Estrada Ot Z72.0 TOBACCO USE 11/22/2015 GABRIELLE RAI DARSHAN Estrada Ot Z79.899 OTHER GROUP HOME (CURRENT) DRUG THERAPY 11/22/2015 GABRIELLE RAI DARSHAN Estrada Ot Z91.19 PATIENT'S NONCOMPLIANCE [facility] MEDICAL TR 11/22/2015 GABRIELLE RAI DARSHAN Estrada [...] PAIN 02/06/2016 ROLF DOLAN APRN Ot Z79.82 GROUP HOME (CURRENT) USE OF ASPIRIN 02/06/2016 ROLF DOLAN APRN Ot Z79.899 OTHER CVICU RN (CURRENT) DRUG THERAPY 02/06/2016 ROLF DOLAN APRN [...] S 11/18/2016 ROLF DOLAN APRN Ot Z79.82 CVICU RN (CURRENT) USE OF ASPIRIN 11/18/2016 ROLF DOLAN [...] S 11/20/2016 ROLF DOLAN APRN Ot Z79.82 GROUP HOME (CURRENT) USE OF ASPIRIN 11/20/2016 ROLF DOLAN APRN Ot Z95.5 PRESENCE OF CORONARY ANGIOPLASTY IMPLANT 02/20/2018 DARSHAN ANTHONY DO Ot E78.00 PURE HYPERCHOLESTEROLEMIA, UNSPECIFIED 02/20/2018 DARSHAN ANTHONY DO Ot F12.90 CANNABIS USE, UNSPECIFIED, UNCOMPLICATED 02/20/2018 DARSHAN ANTHONY DO Ot F17.210 NICOTINE DEPENDENCE, CIGARETTES, UNCOMPL 02/20/2018 DARSHAN ANTHONY DO Ot F32.9 MAJOR DEPRESSIVE DISORDER, SINGLE EPISOD 02/20/2018 DARSHAN ANTHONY DO Ot F41.9 ANXIETY DISORDER, UNSPECIFIED 02/20/2018 DARSHAN ANTHONY DO Ot I10 ESSENTIAL (PRIMARY) HYPERTENSION 02/20/2018 DARSHAN ANTHONY DO Ot I25.10 ATHSCL HEART DISEASE OF [place] CORONARY 02/20/2018 [facility], DARSHAN Estrada Ot I25.2 OLD MYOCARDIAL INFARCTION 02/20/2018 [facility], DARSHAN Estrada Ot I88.0 NONSPECIFIC MESENTERIC LYMPHADENITIS 02/20/2018 [facility], DARSHAN Estrada Ot J30.2 OTHER SEASONAL ALLERGIC RHINITIS 02/20/2018 [facility], DARSHAN Estrada Ot K57.32 DVTRCLI OF LG INT W/O PERFORATION OR ABS 02/20/2018 [facility], DARSHAN Estrada Ot K57.92 DVTRCLI OF INTEST, PART UNSP, W/O PERF O 02/20/2018 [facility], DARSHAN Estrada Ot K76.0 FATTY (CHANGE OF) LIVER, NOT ELSEWHERE C 02/20/2018 [facility], DARSHAN Estrada Ot K85.90 ACUTE PANCREATITIS WITHOUT NECROSIS OR I 02/20/2018 [facility], DARSHAN Estrada Ot M54.9 DORSALGIA, UNSPECIFIED 02/20/2018 [facility] DARSHAN Estrada Ot Z23 ENCOUNTER FOR IMMUNIZATION 02/20/2018 [facility], DARSHAN Sean Ot Z95.5 PRESENCE OF CORONARY [...] 05/11/18 14:40 Myoglobin, serum 95.3 ng/mL 10.0-92.0 Automated blood complete blood count (hemogram) panel - 05/12/18 03:10 Blood leukocytes automated count (number/volume) 10.4 10*3/uL 4.3-11.0 Blood erythrocytes automated count (number/volume) 4.87 10*6/uL 4.35-5.85 Venous blood hemoglobin measurement (mass/volume) 14.5 g/dL 13.3-17.7 Blood hematocrit (volume fraction) 42 % 40-54 Automated erythrocyte mean corpuscular volume 86 [foz_us] 80-99 Automated erythrocyte mean corpuscular hemoglobin (mass per erythrocyte) 30 pg 25-34 Automated erythrocyte mean corpuscular hemoglobin concentration measurement ( mass/volume) 35 g/dL 32-36 Automated erythrocyte distribution width ratio 13.8 % 10.0-14.5 Automated blood platelet count (count/volume) 278 10*3/uL 130-400 Automated blood platelet mean volume measurement 9.2 [foz_us] 7.4-10.4 Whole blood basic metabolic panel - 05/12/18 03:10 Serum or plasma sodium measurement (moles/volume) 136 mmol/L 135-145 Serum or plasma potassium measurement (moles/volume) 3.7 mmol/L 3.6-5.0 Serum or plasma chloride measurement (moles/volume) 102 mmol/L 98-107 Carbon dioxide 24 mmol/L 21-32 Serum or plasma anion gap determination (moles/volume) 10 mmol/L 5-14 Serum or plasma urea nitrogen measurement (mass/volume) 22 mg/dL 7-18 Serum or plasma creatinine measurement (mass/volume) 0.98 mg/dL 0.60-1.30 Serum or plasma urea nitrogen/creatinine mass ratio 22 NRG Serum or plasma creatinine measurement with calculation of estimated glomerular filtration rate > NRG Serum or plasma glucose measurement (mass/volume) 101 mg/dL 70-105 Serum or plasma calcium measurement (mass/volume) 9.3 mg/dL 8.5-10.1 Lipid 1996 panel - 05/12/18 03:10 Serum or plasma triglyceride measurement (mass/volume) 111 mg/dL <150 Serum or plasma cholesterol measurement (mass/volume) 203 mg/dL < 200 Serum or plasma cholesterol in HDL measurement (mass/volume) 32 mg/ dL 40-60 Cholesterol in LDL [mass/volume] in serum or plasma by direct assay 161 mg/dL 1-129 Serum or plasma cholesterol in VLDL measurement (mass/volume) 22 mg/ dL 5-40 Encounters ACCT No. Visit Date/Time Discharge Status Pt. Type Provider Facility Loc./Unit Complaint [id number] 02/18/2018 13:27:00 02/20/2018 13:40:00 DIS Inpatient [facility] PAN[facility]ATIT[facility] [id number] 11/18/2016 18:34:00 11/18/2016 19:22:00 DIS Emergency ROLF DOLAN APRN [facility] ER LT PINKIE FINGER PAIN/ SLAMMED IN DOOR [id number] 02/06/2016 10:26:00 02/06/2016 11:26:00 DIS Emergency ROLF DOLAN APRN [facility] ER BACK PAIN [id number] 12/01/2015 15:37:00 12/01/2015 17:31:00 DIS Emergency DIETER RIVAS, KELLE Benitez [facility] ER DENTAL PAIN [id number] 10/01/2015 18:45:00 10/02/2015 17:04:00 DIS Outpatient DARSHAN ANTHONY DO [facility] CP,HYPERTENSION [id number] 08/18/2015 10:10:00 08/18/2015 11:46:00 DIS Emergency ROLF DOLAN APRN [facility] ER [id number] 01/28/2015 02:58:00 01/28/2015 04:34:00 DIS Emergency NAM RIVAS, VIMAL [place] [facility] ER [id number] 11/27/2014 14:02:00 11/27/2014 16:00:00 DIS Emergency ROLF DOLAN APRN [facility] ER [id number] 01/24/2014 20:42:00 01/24/2014 22:57:00 DIS Emergency ROLF DOLAN APRN [facility] ER [id number] 05/11/2018 15:39:00 ACT Inpatient MIKY RIVAS FACC, NICHOLE PEREZ CCDS [facility] ICU HEART CATH
== END 2018-05-12 09:56 | disposition home or self-care (01) | DRG 251 ==
LOC: EDUNIT# 14:34 → ER 14:35 → ICU 15:39 → CATH 15:39 → ICU 17:20 → CATH 05-12 09:56
PROVIDERS: ADMIT Internal Medicine Cardiovascular Disease; ATTEND Internal Medicine Cardiovascular Disease
PROC: 02703ZZ Dilation of Coronary Artery, One Artery, Percutaneous Approach (ICD-10-PCS; principal; 2018-05-11)
PROC: 4A023N7 Measurement of Cardiac Sampling and Pressure, Left Heart, Percutaneous Approach (ICD-10-PCS; 2018-05-11)
PROC: B2111ZZ Fluoroscopy of Multiple Coronary Arteries using Low Osmolar Contrast (ICD-10-PCS; 2018-05-11)
PROC: B2151ZZ Fluoroscopy of Left Heart using Low Osmolar Contrast (ICD-10-PCS; 2018-05-11)
DX: I21.4 Non-ST elevation (NSTEMI) myocardial infarction (principal); T82.855A Stenosis of coronary artery stent, initial encounter; I25.10 Atherosclerotic heart disease of native coronary artery without angina pectoris; F17.210 Nicotine dependence, cigarettes, uncomplicated; I10 Essential (primary) hypertension; E78.00 Pure hypercholesterolemia, unspecified; M54.9 Dorsalgia, unspecified; F41.9 Anxiety disorder, unspecified; F32.9 Major depressive disorder, single episode, unspecified; Z95.5 Presence of coronary angioplasty implant and graft
CPT/HCPCS: 36415; 71045; 80048; 80053; 80061; 83735; 83874; 84484; 85025; 85027; 85610; 85730; 93005; 93041; 93306; 93458

== ENCOUNTER 2019-05-03 18:46 | Emergency (ER) | payer OTHER ==
[~2019-05-03] VITALS: Ht 165 cm; Wt 82.0 kg
[~2019-05-03 18:46] MED LIST changes: +ASPI-983 PO; +ATOR40TA PO; +CLOP75TA28 PO; +CYAN-41 PO; -CYAN10006 PO; +LISI1TAB29 PO; +METO50TA7 PO; +SERT50TA9 PO
[2019-05-03] MEDS ORDERED: NS IV 1000 ML 1,000 ML IV ONE (19:07)
--- NOTE | 2019-05-03 19:18 | ED General ---
General Chief Complaint: General Problems/Pain Stated Complaint: FEVER/STOMACH PAIN/HARD TO BREATHE Nursing Triage Note: pt has had fevers, nausea, hard to breathe for a day now. No pcp. fever is 98.4 Nursing Sepsis Screen: No Definite Risk Source of Information: Patient Exam Limitations: No Limitations History of Present Illness Date Seen by Provider: May 03, 2019 Time Seen by Provider: 19:00 Initial Comments This 44-year-old gentleman presents to the emergency room with complaints of cough, shortness of breath, headache, and nausea that started late in the day yesterday. He reports fever but is afebrile at present. He took some rzgm-piu-kxbxvtj medications including a multisymptom medication for people with hypertension and a nausea medication just prior to arrival. He does not know exactly what these medications were. He reports his daughter was ill with respiratory symptoms last week. He does have heart disease and takes aspirin 81 mg daily. He has not been taking blood pressure medication but is supposed to. He has not been to her primary care provider in a while but states Dr. ANTHONY was the last PCP he had. His appliance installer is Dr. Bingham. He denies any vomiting or diarrhea. He admits to use of alcohol, tobacco, and marijuana. Allergies and Home Medications Allergies Coded Allergies: NKANo Known Allergies (Verified Allergy, Unknown, 09/22/05) No Known Drug Allergies (Unverified , 09/11/08) Home Medications Aspirin 81 Mg Tab.chew, 81 MG PO DAILY Prescribed by: NICHOLE BINGHAM on 05/12/18910 Atorvastatin Calcium 40 Mg Tablet, 40 MG PO HS Prescribed by: NICHOLE BINGHAM on 05/12/18910 Clopidogrel Bisulfate 75 Mg Tablet, 75 MG PO DAILY Prescribed by: NICHOLE BINGHAM on 05/12/18910 Metoprolol Succinate 50 Mg Tab.er.24h, 50 MG PO DAILY Prescribed by: NICHOLE BINGHAM on 05/12/18910 Sertraline HCl 50 Mg Tablet, 50 MG PO HS, (Reported) Patient Home Medication List Home Medication List Reviewed: Yes Review of Systems Review of Systems Constitutional: see HPI EENTM: see HPI Respiratory: see HPI Cardiovascular: see HPI Gastrointestinal: see HPI Genitourinary: no symptoms reported Musculoskeletal: no symptoms reported Skin: no symptoms reported Psychiatric/Neurological: See HPI Hematologic/Lymphatic: No Symptoms Reported Immunological/Allergic: no symptoms reported Past Ysgzgcn-Fjsqma-Zidmwc Hx Past Med/Social Hx: Reviewed and Corrections made Patient Social History Alcohol Use: Denies Use Number of Drinks Today: CC Alcohol Beverage of Choice: Beer, Cheap Liquor Recreational Drug Use: Yes (THC) 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 Smoking Status: Current Everyday Smoker Type Used: Cigarettes 2nd Hand Smoke Exposure: Yes Recent Foreign Travel: No Contact w/Someone Who Travel: No Recent Infectious Disease Expo: No Recent Hopitalizations: No Physical Abuse: No Sexual Abuse: No Mistreated: No Fear: No Immunizations Up To Date Tetanus Booster (TDap): More than 5yrs PED Vaccines UTD: No Date of Influenza Vaccine: Feb 25, 2018 Seasonal Allergies Seasonal Allergies: Yes Past Medical History Surgeries: Yes (stents) Appendectomy, Coronary Stent Respiratory: No Cardiac: Yes (2 STENTS ) Coronary Artery Disease, Heart Attack, High Cholesterol, Hypertension Neurological: No Reproductive Disorders: No Genitourinary: No Gastrointestinal: Yes (Hepatic steatosis) Diverticulosis, Pancreatitis Musculoskeletal: Yes Chronic Back Pain Endocrine: No HEENT: No Cancer: No Psychosocial: Yes Anxiety, Depression Integumentary: No Blood Disorders: No Adverse Reaction/Blood Tranf: No Family Medical History Cardiovascular disease Hypertension Psychosocial problem No Pertinent Family Hx Physical Exam Vital Signs Vital Signs - First Documented 05/03/19 18:50 Temp 36.9 Pulse 86 Resp 18 B/P (MAP) 179/100 (126) Pulse Ox 96 O2 Delivery Room Air Capillary Refill : Less Than 3 Seconds Height, Weight, BMI Height: 5'6.00" Weight: 184lbs. 0.0oz. 83.998759tk; 30.00 BMI Method:Stated General Appearance: No Apparent Distress, WD/WN HEENT: PERRL/EOMI, Normal ENT Inspection, Pharynx Normal, Other (tympanic membranes hyperemic bilaterally without effusion) Neck: Normal Inspection Respiratory: Lungs Clear, Normal Breath Sounds, No Accessory Muscle Use, No Respiratory Distress Cardiovascular: Regular Rate, Rhythm, No Edema, No Murmur Gastrointestinal: Non Tender, Soft Extremity: Normal Inspection, No Pedal Edema Neurologic/Psychiatric: Alert, Oriented x3, No Motor/Sensory Deficits, Normal Mood/Affect, press bucker II-XII Norm as Tested Skin: Normal Color, Warm/Dry Progress/Results/Core Measures Suspected Sepsis Recent Fever Within 48 Hours: Yes Infection Criteria Present: None New/Unexplained Altered Menta: No Sepsis Screen: No Definite Risk SIRS Temperature: Pulse: 86 Respiratory Rate: 18 Laboratory Tests 05/03/19 19:06: White Blood Count 12.1H Blood Pressure 179 /100 Mean: 126 Laboratory Tests 05/03/19 19:06: Creatinine 0.93, Platelet Count 225, Total Bilirubin 0.5 Results/Orders Lab Results Laboratory Tests Test 05/03/19 19:06 05/03/19 19:43 Range/Units White Blood Count 12.1 H 4.3-11.0 10^3/uL Red Blood Count 4.82 4.35-5.85 10^6/uL Hemoglobin 14.1 13.3-17.7 G/DL Hematocrit 41 40-54 % Mean Corpuscular Volume 85 80-99 FL Mean Corpuscular Hemoglobin 29 25-34 PG Mean Corpuscular Hemoglobin Concent 34 32-36 G/DL Red Cell Distribution Width 12.8 10.0-14.5 % Platelet Count 225 130-400 10^3/uL Mean Platelet Volume 9.3 7.4-10.4 FL Neutrophils (%) (Auto) 75 42-75 % Lymphocytes (%) (Auto) 12 12-44 % Monocytes (%) (Auto) 12 0-12 % Eosinophils (%) (Auto) 1 0-10 % Basophils (%) (Auto) 0 0-10 % Neutrophils # (Auto) 9.1 H 1.8-7.8 X 10^3 Lymphocytes # (Auto) 1.5 1.0-4.0 X 10^3 Monocytes # (Auto) 1.4 H 0.0-1.0 X 10^3 Eosinophils # (Auto) 0.1 0.0-0.3 10^3/uL Basophils # (Auto) 0.0 0.0-0.1 10^3/uL Sodium Level 138 135-145 MMOL/L Potassium Level 3.4 L 3.6-5.0 MMOL/L Chloride Level 101 98-107 MMOL/L Carbon Dioxide Level 24 21-32 MMOL/L Anion Gap 13 5-14 MMOL/L Blood Urea Nitrogen 13 7-18 MG/DL Creatinine 0.93 0.60-1.30 MG/DL Estimat Glomerular Filtration Rate > 60 BUN/Creatinine Ratio 14 Glucose Level 97 70-105 MG/DL Calcium Level 9.6 8.5-10.1 MG/DL Corrected Calcium 8.5-10.1 MG/DL Total Bilirubin 0.5 0.1-1.0 MG/DL Aspartate Amino Transf (AST/SGOT) 33 5-34 U/L Alanine Aminotransferase (ALT/SGPT) 55 0-55 U/L Alkaline Phosphatase 80 40-136 U/L Total Protein 7.9 6.4-8.2 GM/DL Albumin 4.6 H 3.2-4.5 GM/DL Lipase 22 8-78 U/L Micro Results Microbiology 05/03/19 Influenza Types A,B Antigen (MARY) - Final, Complete My Orders Orders - MURALI LEE MD Cbc With Automated Diff (05/03/19 18:48) Comprehensive Metabolic Panel (05/03/19 18:48) Lipase (05/03/19 18:48) Ua Culture If Indicated (05/03/19 18:48) Ed Iv/Invasive Line Start (05/03/19 18:48) Chest Pa/Lat (2 View) (05/03/19 19:07) Ns Iv 1000 Ml (Sodium Chloride 0.9%) (05/03/19 19:07) Influenza A And B Antigens (05/03/19 19:07) Ceftriaxone For Iv Use (Rocephin For I (05/03/19 20:00) Azithromycin Tablet (Zithromax Tablet) (05/03/19 20:00) Medications Given in ED Current Medications Medications Dose Ordered Sig/Jessica Route Start Time Stop Time Status Last Admin Dose Admin Sodium Chloride 1,000 ml @ 0 mls/hr Q0M ONCE IV 05/03/19 19:07 05/03/19 19:09 DC 05/03/19 19:14 0 MLS/HR Vital Signs/I&O 05/03/19 18:50 Temp 36.9 Pulse 86 Resp 18 B/P (MAP) 179/100 (126) Pulse Ox 96 O2 Delivery Room Air Capillary Refill : Less Than 3 Seconds Blood Pressure Mean: 126 POS Progress Note : Progress Note Patient was found to have right lower lobe pneumonia on chest x-ray. He was treated with Rocephin and azithromycin. He was hemodynamically stable and did not meet sepsis criteria. He can be treated as an outpatient. He was also given lisinopril for his hypertension and a prescription for lisinopril/hydr ochlorothiazide was provided. He is being encouraged follow-up with a primary care provider soon as possible. Diagnostic Imaging Diagonstic Imaging: Xray Plain Films/CT/US/NM/MRI: chest Comments Chest x-ray viewed by me and report reviewed. See report below: NAME: [facility]LL[facility] REC#: [id number] PT STATUS: REG ER : 1975 PHYSICIAN: MURALI LEE MD ADMIT DATE: 05/03/19/ER Draft Date of Exam:05/03/19 CHEST PA/LAT (2 VIEW) INDICATION: Shortness of breath PA and lateral chest There are patchy infiltrates at the right lung base, and possibly the suprahilar region of left lung. IMPRESSION: Patchy bilateral infiltrates suspicious for pneumonia. Dictated on workstation # [id number] Dict: 05/03/191935 Trans: 05/03/191938 [facility] [phone] Interpreted by: VIMAL CARRION MD Departure Impression Primary Impression: Right lower lobe pneumonia Qualified Codes: J18.1 - Lobar pneumonia, unspecified organism Additional Impressions: Nausea Hypertension Qualified Codes: I10 - Essential (primary) hypertension Disposition: 01 HOME, SELF-CARE Condition: Improved Departure-Patient Inst. Decision time for Depature: 19:59 Referrals: [facility] (PCP/Family) Primary Care Physician Patient Instructions: High Blood Pressure (DC), Pneumonia, Adult (DC) Add. Discharge Instructions: Drink plenty of clear liquids to stay well-hydrated. Work hard on quitting smoking to improve your overall health and to speed recovery from your pneumonia. Fill your antibiotics and start the pills tomorrow. Resume your blood pressure medication as prescribed. Follow-up with your primary care provider as soon as possible, preferably within the next week. Return to the emergency room if you have worsening symptoms. All discharge instructions reviewed with patient and/or family. Voiced understanding. Scripts Lisinopril/Hydrochlorothiazide (Lisinopril-Hctz 10-12.5 mg Tab) 1 Each Tablet 1 EACH PO DAILY, #30 TAB Prov: MURALI LEE MD 05/03/19 Azithromycin (Azithromycin) 250 Mg Tablet 250 MG PO DAILY, #4 TAB 0 Refills Prov: MURALI LEE MD 05/03/19 Copy Copies To 1: DARSHAN ANTHONY JOSHUA T MD May 03, 2019 19:18 POS
[2019-05-03 19:19] LABS: BASOPHILS % (AUTO) 0 % (0-10); EOSINOPHILS # (AUTO) 0.1 10^3/uL (0.0-0.3); EOSINOPHILS % (AUTO) 1 % (0-10); HEMATOCRIT 41 % (40-54); HEMOGLOBIN 14.1 G/DL (13.3-17.7); LYMPHOCYTES # (AUTO) 1.5 X 10^3 (1.0-4.0); LYMPHOCYTES % (AUTO) 12 % (12-44); MEAN CORPUSCULAR HEMOGLOBIN 29 PG (25-34); MEAN CORPUSCULAR HGB CONC 34 G/DL (32-36); MEAN CORPUSCULAR VOLUME 85 FL (80-99); MEAN PLATELET VOLUME 9.3 FL (7.4-10.4); MONOCYTES # (AUTO) 1.4 X 10^3 (0.0-1.0); MONOCYTES % (AUTO) 12 % (0-12); NEUTROPHILS # (AUTO) 9.1 X 10^3 (1.8-7.8); NEUTROPHILS % (AUTO) 75 % (42-75); PLATELET COUNT 225 10^3/uL (130-400); RED CELL DISTRIBUTION WIDTH 12.8 % (10.0-14.5); WHITE BLOOD COUNT 12.1 10^3/uL (4.3-11.0)
[2019-05-03 19:39] LABS: ALANINE AMINOTRANSFERASE 55 U/L (0-55); ALBUMIN 4.6 GM/DL (3.2-4.5); ALKALINE PHOSPHATASE 80 U/L (40-136); BILIRUBIN,TOTAL 0.5 MG/DL (0.1-1.0); BUN/CREATININE RATIO 14; CALCIUM 9.6 MG/DL (8.5-10.1); CARBON DIOXIDE 24 MMOL/L (21-32); CHLORIDE 101 MMOL/L (98-107); CREATININE SERUM 0.93 MG/DL (0.60-1.30); GFR ESTIMATED > 60; GLUCOSE 97 MG/DL (70-105); LIPASE 22 U/L (8-78); POTASSIUM 3.4 MMOL/L (3.6-5.0); SODIUM 138 MMOL/L (135-145); TOTAL PROTEIN 7.9 GM/DL (6.4-8.2)
--- NOTE | 2019-05-03 19:39 | Diagnostic Imaging Report ---
INDICATION: Shortness of breath PA and lateral chest There are patchy infiltrates at the right lung base, and possibly the suprahilar region of left lung. IMPRESSION: Patchy bilateral infiltrates suspicious for pneumonia. Dictated by: Dictated on workstation # [id number]
[2019-05-03 19:57] LABS: BILIRUBIN,URINE NEGATIVE (NEGATIVE); CLARITY,URINE CLEAR; COLOR,URINE YELLOW; GLUCOSE, URINE (UA) NEGATIVE (NEGATIVE); KETONES,URINE NEGATIVE (NEGATIVE); LEUKOCYTE ESTERASE ,URINE NEGATIVE (NEGATIVE); NITRITE,URINE NEGATIVE (NEGATIVE); PH,URINE 6.5 (5-9); PROTEIN,URINE NEGATIVE (NEGATIVE)
[2019-05-03] MEDS ORDERED: cefTRIAXone FOR IV USE 1,000 MG in WATER (STERILE) FOR INJECTION 10 ML IV ONE (20:00)
[2019-05-03] MEDS ORDERED: AZITHROMYCIN 250 MG TAB (ZITHROMAX) PO ONE (20:00)
[2019-05-03] MEDS ORDERED: LISI1TAB29 PO (20:03)
[2019-05-03] MEDS ORDERED: AZIT250T12 PO (20:03)
[2019-05-03 20:05] LABS: BACTERIA,URINE NEGATIVE /HPF
[2019-05-03 20:13] VITALS: BP 179/100
[2019-05-03] MEDS ORDERED: lisINopril 10 MG (PRINIVIL) TABLET PO ONE (20:15)
== END 2019-05-03 20:13 | disposition home or self-care (01) ==
LOC: EDUNIT# 18:46 → ER 18:47
DX: J18.9 Pneumonia, unspecified organism (principal); I10 Essential (primary) hypertension; E78.00 Pure hypercholesterolemia, unspecified; I25.2 Old myocardial infarction; I25.10 Atherosclerotic heart disease of native coronary artery without angina pectoris; F41.9 Anxiety disorder, unspecified; F32.9 Major depressive disorder, single episode, unspecified; F17.210 Nicotine dependence, cigarettes, uncomplicated; Z79.82 Long term (current) use of aspirin; Z90.49 Acquired absence of other specified parts of digestive tract; Z95.5 Presence of coronary angioplasty implant and graft; Z82.49 Family history of ischemic heart disease and other diseases of the circulatory system
CPT/HCPCS: 36415; 71046; 80053; 81000; 83690; 85025; 87804; 96361; 96374

== ENCOUNTER 2020-03-05 14:35 | Emergency (ER) | payer SELFPAY ==
[~2020-03-05] VITALS: Ht 165.1 cm; Wt 79.5 kg
[~2020-03-05 14:35] MED LIST changes: +ASPI-1238 PO; -ASPI-983 PO; +AZIT250T12 PO
[2020-03-05 14:38] VITALS: BP 158/94
[2020-03-05] MEDS ORDERED: LISI1TAB29 PO (14:54)
--- NOTE | 2020-03-05 14:55 | ED General ---
General Chief Complaint: General Problems/Pain Stated Complaint: HIGH BP Source of Information: Patient Exam Limitations: No Limitations History of Present Illness Date Seen by Provider: Mar 05, 2020 Time Seen by Provider: 14:51 Initial Comments To ER with reports of high blood pressure. He was having a physical exam done by occupational health prior to employment at [employer] a few weeks ago. His blood pressure was elevated at 185/90. He was started on lisinopril/HCTZ 10/12.5 mg. He went to [facility] today to try to get clearance to go to work because his gas is getting shut off and he just got his eviction notice. [facility] referred him to the emergency room. He has no symptoms Timing/Duration: 1-2 Days Severity: Moderate Allergies and Home Medications Allergies Coded Allergies: NKANo Known Allergies (Verified Allergy, Unknown, 09/22/05) No Known Drug Allergies (Unverified , 09/11/08) Home Medications Aspirin 81 Mg Tab.chew, 81 MG PO DAILY Prescribed by: NICHOLE BOLAÑOS on 05/12/18910 Atorvastatin Calcium 40 Mg Tablet, 40 MG PO HS Prescribed by: NICHOLE BOLAÑOS on 05/12/18910 Azithromycin 250 Mg Tablet, 250 MG PO DAILY Prescribed by: MURALI HOOKS on 05/03/192002 Clopidogrel Bisulfate 75 Mg Tablet, 75 MG PO DAILY Prescribed by: NICHOLE BOLAÑOS on 05/12/18910 Lisinopril/Hydrochlorothiazide 1 Each Tablet, 1 EACH PO DAILY Prescribed by: MURALI HOOKS on 05/03/192002 Metoprolol Succinate 50 Mg Tab.er.24h, 50 MG PO DAILY Prescribed by: NICHOLE BOLAÑOS on 05/12/18910 Sertraline HCl 50 Mg Tablet, 50 MG PO HS, (Reported) Patient Home Medication List Home Medication List Reviewed: Yes Review of Systems Review of Systems Constitutional: see HPI EENTM: see HPI Respiratory: no symptoms reported Cardiovascular: no symptoms reported Genitourinary: no symptoms reported Musculoskeletal: no symptoms reported Skin: no symptoms reported Psychiatric/Neurological: No Symptoms Reported Hematologic/Lymphatic: No Symptoms Reported Immunological/Allergic: no symptoms reported Past Yqvzgxo-Swmlqc-Bvxbkh Hx Patient Social History Alcohol Beverage of Choice: Beer, Cheap Liquor 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 Type Used: Cigarettes 2nd Hand Smoke Exposure: Yes Recent Foreign Travel: No Contact w/Someone Who Travel: No Recent Hopitalizations: No Immunizations Up To Date Tetanus Booster (TDap): More than 5yrs PED Vaccines UTD: No Date of Influenza Vaccine: Feb 25, 2018 Seasonal Allergies Seasonal Allergies: Yes Past Medical History Surgeries: Yes (stents) Appendectomy, Coronary Stent Respiratory: No Cardiac: Yes (2 STENTS ) Coronary Artery Disease, Heart Attack, High Cholesterol, Hypertension Neurological: No Reproductive Disorders: No Genitourinary: No Gastrointestinal: Yes (Hepatic steatosis) Diverticulosis, Pancreatitis Musculoskeletal: Yes Chronic Back Pain Endocrine: No HEENT: No Cancer: No Psychosocial: Yes Anxiety, Depression Integumentary: No Blood Disorders: No Adverse Reaction/Blood Tranf: No Family Medical History Cardiovascular disease Hypertension Psychosocial problem No Pertinent Family Hx Physical Exam Vital Signs Capillary Refill : Height, Weight, BMI Height: 5'6.00" Weight: 184lbs. 0.0oz. 83.636147zb; 30.00 BMI Method:Stated General Appearance: No Apparent Distress, WD/WN Eyes: Bilateral Eye Normal Inspection, Bilateral Eye PERRL, Bilateral Eye EOMI Neck: Full Range of Motion Respiratory: Lungs Clear, Normal Breath Sounds, No Accessory Muscle Use, No Respiratory Distress Cardiovascular: Regular Rate, Rhythm, Normal Peripheral Pulses Gastrointestinal: Normal Bowel Sounds, Non Tender, Soft Neurologic/Psychiatric: Alert, Oriented x3 Skin: Normal Color, Warm/Dry Progress/Results/Core Measures Suspected Sepsis SIRS Temperature: Pulse: Respiratory Rate: Blood Pressure / Mean: Results/Orders Vital Signs/I&O Capillary Refill : Departure Impression Primary Impression: General medical exam Disposition: HOME, SELF-CARE Condition: Stable Departure-Patient Inst. Decision time for Depature: 14:53 Referrals: [facility] [place]) Primary Care Physician Patient Instructions: NO INSTRUCTIONS GIVEN Add. Discharge Instructions: 1. Add a half tablet so that you're taking 1.5 tablets of your lisinopril/HCTZ daily.. All discharge instructions reviewed with patient and/or family. Voiced understanding. Scripts Lisinopril/Hydrochlorothiazide (Lisinopril-Hctz 10-12.5 mg Tab) 1 Each Tablet 0.5 TAB PO DAILY, #60 TAB Prov: ROLF DOLAN APRN 03/05/20 ROLF DOLAN APRN Mar 05, 2020 14:54
[2020-03-05 15:17] LABS: CHLORIDE 102 MMOL/L (98-107); POTASSIUM 3.5 MMOL/L (3.6-5.0); SODIUM 137 MMOL/L (135-145)
[2020-03-05 15:18] LABS: CALCIUM 9.3 MG/DL (8.5-10.1); GLUCOSE 106 MG/DL (70-105)
[2020-03-05 15:20] LABS: CARBON DIOXIDE 23 MMOL/L (21-32)
[2020-03-05 15:22] LABS: CREATININE SERUM 1.03 MG/DL (0.60-1.30); GFR ESTIMATED > 60
[2020-03-05 15:23] LABS: BUN/CREATININE RATIO 19
== END 2020-03-05 15:05 | disposition home or self-care (01) ==
LOC: EDUNIT# 14:35 → ER 14:36
DX: Z00.00 Encounter for general adult medical examination without abnormal findings (principal); I10 Essential (primary) hypertension; E78.00 Pure hypercholesterolemia, unspecified; F41.9 Anxiety disorder, unspecified; F32.9 Major depressive disorder, single episode, unspecified; I25.2 Old myocardial infarction; Z77.22 Contact with and (suspected) exposure to environmental tobacco smoke (acute) (chronic); Z79.82 Long term (current) use of aspirin; Z95.5 Presence of coronary angioplasty implant and graft; Z82.49 Family history of ischemic heart disease and other diseases of the circulatory system
CPT/HCPCS: 36415; 80048

== ENCOUNTER → 2020-03-12 | Outpatient (CLI) | payer OTHER ==
[2020-03-12 09:06] LABS: BASOPHILS # (AUTO) 0.1 10^3/uL (0.0-0.1); BASOPHILS % (AUTO) 1 % (0-10); EOSINOPHILS # (AUTO) 0.2 10^3/uL (0.0-0.3); EOSINOPHILS % (AUTO) 2 % (0-10); HEMATOCRIT 46 % (40-54); HEMOGLOBIN 15.1 g/dL (13.3-17.7); LYMPHOCYTES # (AUTO) 2.4 10^3/uL (1.0-4.0); LYMPHOCYTES % (AUTO) 26 % (12-44); MEAN CORPUSCULAR HEMOGLOBIN 30 pg (25-34); MEAN CORPUSCULAR HGB CONC 33 g/dL (32-36); MEAN CORPUSCULAR VOLUME 89 fL (80-99); MEAN PLATELET VOLUME 9.3 fL (9.0-12.2); MONOCYTES # (AUTO) 0.6 10^3/uL (0.0-1.0); MONOCYTES % (AUTO) 7 % (0-12); NEUTROPHILS # (AUTO) 6.1 10^3/uL (1.8-7.8); NEUTROPHILS % (AUTO) 65 % (42-75); PLATELET COUNT 241 10^3/uL (130-400); WHITE BLOOD COUNT 9.4 10^3/uL (4.3-11.0)
[2020-03-12 09:27] LABS: ERYTHROCYTE SEDIMENTATION RATE 4 MM/HR (0-15)
[2020-03-12 09:33] LABS: ALANINE AMINOTRANSFERASE 39 U/L (0-55); ALBUMIN 4.5 GM/DL (3.2-4.5); ALKALINE PHOSPHATASE 57 U/L (40-136); BILIRUBIN,TOTAL 0.5 MG/DL (0.1-1.0); BUN/CREATININE RATIO 20; CALCIUM 9.2 MG/DL (8.5-10.1); CARBON DIOXIDE 26 MMOL/L (21-32); CHLORIDE 104 MMOL/L (98-107); CHOLESTEROL 202 MG/DL (< 200); CREATININE SERUM 1.15 MG/DL (0.60-1.30); GFR ESTIMATED > 60; GLUCOSE 90 MG/DL (70-105); HDL CHOLESTEROL 38 MG/DL (40-60); MAGNESIUM 2.1 MG/DL (1.6-2.4); SODIUM 140 MMOL/L (135-145); TOTAL PROTEIN 7.7 GM/DL (6.4-8.2); TRIGLYCERIDES 151 MG/DL (<150); VLDL CHOLESTEROL 30 MG/DL (5-40)
== END ==
LOC: LAB 08:43
PROVIDERS: ATTEND Internal Medicine Cardiovascular Disease
DX: I25.10 Atherosclerotic heart disease of native coronary artery without angina pectoris (principal); E78.5 Hyperlipidemia, unspecified; I10 Essential (primary) hypertension; Z72.0 Tobacco use
CPT/HCPCS: 36415; 80053; 80061; 83735; 84443; 85025; 85652

== ENCOUNTER → 2020-03-13 | Outpatient (CLI) | payer OTHER ==
[~2020-03-13] VITALS: Ht 165 cm; Wt 80.0 kg
[~2020-03-13] MED LIST changes: +CATHETER FLUSH 10 ML SYR IV PRN
[2020-03-13 10:00] VITALS: BP 149/101
--- NOTE | 2020-03-13 20:52 | STRESS TEST ---
DATE OF SERVICE: 03/13/2020 RESTING AND POST EXERCISE TECHNETIUM-99M TETROFOSMIN SPECT CT IMAGING ORDERING PHYSICIAN: Dr. Bingham. PRIMARY PHYSICIAN: [facility]. CLINICAL DIAGNOSIS: Coronary artery disease, hypertension, hyperlipidemia, tobacco use. Baseline images were carried out after injection of 10.63 mCi of technetium-99m Tetrofosmin. This was followed by exercise on a treadmill. Giles protocol was employed. Heart rate response to exercise was normal. Blood pressure response to exercise was hypertensive. There was considerable baseline artifact. There does not appear to be significant ST segment depression with exercise. The test was stopped on account of fatigue. When the patient had attained. The patient had attained approximately 85% of maximum predicted heart rate and had indicated that he would not be able to go for more than another minute, 27.6 mCi of technetium-99m Tetrofosmin were injected and the exercise was continued for another minute. Review of images at rest and following stress does not indicate any significant perfusion defects consistent with significant myocardial ischemia or infarction. Gated images show normal global left ventricular systolic murmur, normal regional wall motion. Left ventricular ejection fraction is calculated to be 59%. Left ventricular end diastolic volume is 70 mL. TID is absent (1.11). CONCLUSIONS: 1. No evidence of any significant myocardial ischemia or infarction on this study. 2. Normal regional wall motion. 3. Normal global left ventricular systolic function with a calculated ejection fraction of 59%. Job ID: [id number] DocumentID: [id number] Dictated Date: 03/13/2020 14:14:18 Wheelchair Van Operator First Responder Date: 03/13/2020 20:50:54 Dictated By: NICHOLE BINGHAM MD, MA, FACP, FACC,
== END ==
LOC: CARD 08:15
PROVIDERS: ATTEND Internal Medicine Cardiovascular Disease
DX: I25.10 Atherosclerotic heart disease of native coronary artery without angina pectoris (principal); E78.5 Hyperlipidemia, unspecified; I10 Essential (primary) hypertension; Z72.0 Tobacco use
CPT/HCPCS: 78452; 93017; A9502

== ENCOUNTER 2022-09-26 14:41 | Emergency (ER) | payer OTHER ==
[~2022-09-26] VITALS: Ht 165 cm; Wt 83.0 kg
[~2022-09-26 14:41] MED LIST changes: -CATHETER FLUSH 10 ML SYR IV PRN; -LISI1TAB29 PO; +LISI1TAB44 PO; +SERT-413 PO; -SERT50TA9 PO
--- NOTE | 2022-09-26 15:10 | ED Back Pain ---
General Chief Complaint: Back Problems Stated Complaint: BACK PAIN Nursing Triage Note: BACK PAIN AFTER GETTING UP OFF OF COUCH. FELT/HEARD A POP. PT WENT TO THE GROUND. HAS NOT TAKEN ANYTHING FOR THE PAIN. 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 Source of Information: Patient Exam Limitations: No Limitations History of Present Illness Date Seen by Provider: Sep 26, 2022 Time Seen by Provider: 15:07 Initial Comments Patient is a 47-year-old male who presents to the ED for lower back pain. This occurred 30 minutes ago. Patient states he stood up off the couch felt a sharp pain in his lower back. Patient states he felt a pop. Patient immediately fell to the ground because of the pain. Denies of any bowel or urine incontinence, saddle paresthesia, lower extremity weakness. No history of previous type pain. Pain is worse with any type of movement. Denies taking thing for pain. Patient mainly came to the ER. Denies fever, chills, chest pain, cough, shortness of breath Allergies and Home Medications Allergies Coded Allergies: NKANo Known Allergies (Verified Allergy, Unknown, 09/22/05) No Known Drug Allergies (Unverified , 09/11/08) Patient Home Medication List Home Medication List Reviewed: Yes Aspirin (Aspirin) 81 Mg Tab.chew, 81 MG PO DAILY Prescribed by: NICHOLE BOLAÑOS on 05/12/18910 Atorvastatin Calcium (Lipitor) 40 Mg Tablet, 40 MG PO HS Prescribed by: NICHOLE BOLAÑOS on 05/12/18910 Azithromycin (Azithromycin) 250 Mg Tablet, 250 MG PO DAILY Prescribed by: MURALI HOOKS on 05/03/192002 Clopidogrel Bisulfate (Clopidogrel) 75 Mg Tablet, 75 MG PO DAILY Prescribed by: NICHOLE BOLAÑOS on 05/12/18910 Cyclobenzaprine HCl (Cyclobenzaprine HCl) 10 Mg Tablet, 10 MG PO TID Prescribed by: AKUA COLLAZO on 09/26/22 1556 Lisinopril/Hydrochlorothiazide (Lisinopril-Hctz 10-12.5 mg Tab) 1 Each Tablet, 1 EACH PO DAILY Prescribed by: MURALI HOOKS on 05/03/192002 Lisinopril/Hydrochlorothiazide (Lisinopril-Hctz 10-12.5 mg Tab) 1 Each Tablet, 0.5 TAB PO DAILY Prescribed by: ROLF DOLAN on 03/05/20 1454 Methylprednisolone (Medrol Dose pack) 4 Mg Tab, 4 MG PO UD Prescribed by: AKUA COLLAZO on 09/26/22 1556 Metoprolol Succinate (Metoprolol Succinate) 50 Mg Tab.er.24h, 50 MG PO DAILY Prescribed by: NICHOLE BOLAÑOS on 05/12/18 0911 Naproxen (Naproxen) 500 Mg Tablet, 500 MG PO Q12H Prescribed by: AKUA COLLAZO on 09/26/22 1556 Sertraline HCl (Sertraline HCl) 50 Mg Tablet, 50 MG PO HS, (Reported) Entered as Reported by: MORRIS LUCAS on 05/12/18 0841 Review of Systems Constitutional: No chills, No diaphoresis EENTM: No hearing loss, No ear pain, No blurred vision, No double vision Respiratory: No cough, No dyspnea on exertion Gastrointestinal: No abdominal pain, No diarrhea, No nausea, No vomiting Genitourinary: No decreased output, No discharge Musculoskeletal: back pain, joint pain All Other Systems Reviewed Negative Unless Noted: Yes Past Vvicvxg-Ahxnss-Bgohxg Hx Patient Social History Tobacco Use?: Yes Smoking Status: Current Everyday Smoker Substance use?: Yes Substance type: Marijuana Alcohol Use?: Yes Alcohol Frequency: Once in a while Immunizations Up To Date Tetanus Booster (TDap): More than 5yrs PED Vaccines UTD: No Second COVID19 Vaccination Drake: UNKNOWN 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 Seasonal Allergies Seasonal Allergies: Yes Past Medical History Surgeries: Yes (stents) Appendectomy, Coronary Stent Respiratory: No Cardiac: Yes (2 STENTS ) Coronary Artery Disease, Heart Attack, High Cholesterol, Hypertension Neurological: No Reproductive Disorders: No Genitourinary: No Gastrointestinal: Yes (Hepatic steatosis) Diverticulosis, Pancreatitis Musculoskeletal: Yes Chronic Back Pain Endocrine: No HEENT: No Cancer: No Psychosocial: Yes Anxiety, Depression Integumentary: No Blood Disorders: No Adverse Reaction/Blood Tranf: No Family Medical History Cardiovascular disease Hypertension Psychosocial problem No Pertinent Family Hx Physical Exam Vital Signs Vital Signs - First Documented 09/26/22 14:48 Pulse 65 Resp 16 B/P (MAP) 153/95 (114) Pulse Ox 98 O2 Delivery Room Air Capillary Refill : Less Than 3 Seconds Height, Weight, BMI Height: 5'6.00" Weight: 184lbs. 0.0oz. 83.729451cc; 30.00 BMI Method:Stated General Appearance: No Apparent Distress, WD/WN HEENT: PERRL/EOMI, TMs Normal, Normal ENT Inspection, Pharynx Normal Neck: Full Range of Motion, Normal Inspection, Non Tender, Supple Cardiovascular: Regular Rate, Rhythm, No Edema, No Gallop, No JVD, No Murmur Respiratory: Chest Non Tender, Lungs Clear, Normal Breath Sounds, No Accessory Muscle Use, No Respiratory Distress Gastrointestinal: Normal Bowel Sounds, No Organomegaly, No Pulsatile Mass, Non Tender Back: Normal Inspection, No CVA Tenderness, Vertebral Tenderness (Lumbar midline tenderness. No bilateral lumbar paraspinal muscle tenderness.) Extremity: Normal Capillary Refill, Normal Inspection, Normal Range of Motion, Non Tender Neurologic/Psychiatric: Alert, Oriented x3, No Motor/Sensory Deficits, Normal Mood/Affect Skin: Normal Color, Warm/Dry Progress/Results/Core Measures Results/Orders My Orders Orders - FAWAD TAVARES Ketorolac Injection (Toradol Injection) (09/26/22 15:15) Orphenadrine Inj (Ed Only) (Norflex Inje (09/26/22 15:15) Hydrocodone/Apap 5/325 Tablet (Lortab 5 (09/26/22 15:15) Medications Given in ED Current Medications Medications Dose Ordered Sig/Jessica Route Start Time Stop Time Status Last Admin Dose Admin Acetaminophen/ Hydrocodone Bitart 1 ea ONCE ONCE PO 09/26/22 15:15 09/26/22 15:16 DC 09/26/22 15:52 1 EA Ketorolac Tromethamine 30 mg ONCE ONCE IM 09/26/22 15:15 09/26/22 15:16 DC 09/26/22 15:22 30 MG Orphenadrine Citrate 60 mg ONCE ONCE IM 09/26/22 15:15 09/26/22 15:16 DC 09/26/22 15:22 60 MG Vital Signs/I&O 09/26/22 14:48 Pulse 65 Resp 16 B/P (MAP) 153/95 (114) Pulse Ox 98 O2 Delivery Room Air Blood Pressure Mean: 114 Departure Communication (PCP) Reviewed previous ER visits, H&P, lab testing. Differential diagnosis of low back muscle strain, degenerative disc disease, bulging disc. Patient with low back pain after standing up off the couch. Denies taking thing for pain. No fall. No neurological red flag findings such as bowel or urine cons, saddle paresthesia. Denies taking thing at home for pain. Does have lumbar midline tenderness. Range of motion intact with pain. Discussed that this is likely more muscle strain sprain of the lower back. No neuropathy type pain suggesting bulging disc at this time. Discussed with patient since he did not fall all I do not think imaging is necessary. No history of bone disorder, osteoporosis, osteopenia. Imaging was held. Patient Was given IM Toradol, Norflex and hydrocodone with improvement of pain. Discussed rest, stretching and discharged with anti-inflammatories and muscle relaxer. Pain has improved. If continued pain may benefit with physical therapy or further outpatient imaging. Return precaution were discussed with patient such as any neurological deficits. He agrees with plan of action Impression Primary Impression: Back pain Disposition: 01 HOME, SELF-CARE Condition: Stable Departure-Patient Inst. Decision time for Depature: 15:55 Referrals: [facility] [place] (PCP/Family) Primary Care Physician Patient Instructions: Low Back Pain (DC) Scripts Naproxen (Naproxen) 500 Mg Tablet 500 MG PO Q12H, #20 TAB Prov: FAWAD TAVARES 09/26/22 Cyclobenzaprine HCl (Cyclobenzaprine HCl) 10 Mg Tablet 10 MG PO TID, #14 TAB Prov: FAWAD TAVARES 09/26/22 Methylprednisolone (Medrol Dose pack) 4 Mg Tab 4 MG PO UD for 6 Days, #21 TAB as directed per dose pack Prov: FAWAD TAVARES 09/26/22 FAWAD TAVARES Sep 26, 2022 15:10
[2022-09-26] MEDS ORDERED: HYDROcodone/APAP 5 MG/325 MG (LORTAB) TAB PO ONE (15:15)
[2022-09-26] MEDS ORDERED: ORPHENADRINE 60 MG/2 ML (NORFLEX) AMP (ED ONLY) IM ONE (15:15)
[2022-09-26] MEDS ORDERED: KETOROLAC 30 MG/ML VIAL IM ONE (15:15)
[2022-09-26] MEDS ORDERED: CYCL10TA25 PO (15:56)
[2022-09-26] MEDS ORDERED: NAPR-915 PO (15:56)
[2022-09-26] MEDS ORDERED: NF-METHYLP PO (15:56)
[2022-09-26 16:01] VITALS: BP 140/87
== END 2022-09-26 16:02 | disposition home or self-care (01) ==
LOC: EDUNIT# 14:41 → ER 14:43
DX: M54.50 Low back pain, unspecified (principal); F17.200 Nicotine dependence, unspecified, uncomplicated; X50.1XXA Overexertion from prolonged static or awkward postures, initial encounter
CPT/HCPCS: 99284